=== PATIENT | female | born 1960 | race Caucasian/White ===

== ENCOUNTER → 2018-04-01 | Day surgery (SDC) | payer OTHER ==
[2018-03-30 08:17] VITALS: BMI 40.0
--- NOTE | 2018-03-30 12:44 | PAT Medication Instructions ---
Service Date March 30, 2018. Current Home Medication List Acetaminophen (Tylenol), 2 TAB PO BID PRN for Pain Albuterol Hfa (Ventolin Hfa), 2 PUFFS INH Q6 PRN for SOB/Wheezing Antacid (Antacid), 30 ML PO Q6H PRN for GERD Aripiprazole (Aripiprazole), 1 TAB PO DAILY AT 2000 Artificial Tear Solution (Artificial Tears), 1 DROPS OP UD PRN for DRY EYES Atorvastatin (Lipitor), 20 MG PO QAM Bacitracin Zinc (Bacitracin Zinc), 1 APPLN TOP UD PRN for WOUND CARE Benzocaine (Dental) (Anbesol), 1 APPLN TOP Q12 PRN for SORE GUMS Bisacodyl (Bisacodyl), 2 TAB PO HS PRN for Constipation Bzluvwuzje-Mqlbqxdgyrlsw-Aljdm (Fioricet), 1 CAP PO BID PRN for MOD-SEVERE HEADACHE Calcium Carbonate (Tums), 1 TAB PO UD PRN for HEARTBURN Carvedilol (Coreg), 3.125 MG PO BID Clonazepam (Klonopin), 0.5 MG PO HS PRN for ANXIETY Clonidine HCl (Clonidine HCl), 1 TAB PO HS Clonidine Hcl (Catapres), 0.5 TAB PO QAM Dextromethorphan-Guaifenesin (Siltussin-Dm), 2 TSP PO Q4H PRN for Cough Diclofenac (Voltaren), 1 TAB PO BID PRN for ARTHRITIS Epinephrine (Epipen), 0.3 MG IM UD Fluticasone Propionate (Nasal) (Allergy Nasal [place] 24 Ho), 1 DOSE BERENICE BID Folic Acid (Folvite), 1 MG PO QAM Furosemide (Lasix), 40 MG PO QAM Hydroxyzine Hcl (Atarax), 10 MG PO QID PRN for ANXIETY Levetiracetam (Keppra), 2 TAB PO BID Levothyroxine Sodium (Levothyroxine Sodium), 1 TAB PO QAM Magnesium Hydroxide (Milk of Magnesia 400 mg/5Ml), 30 ML PO UD PRN for CONSTIPATION Melatonin (Kp Melatonin), 1 TAB PO HS Mineral Oil Light (Topical) (Mineral Oil Light), 1-2 DROPS OT UD Nystatin (Topical) (Nystatin), Unknown Dose TOP BID Nystatin (Topical) (Nystatin), 1 APPLN TOP HS Omeprazole (Prilosec), 20 MG PO QAM Ondansetron Hcl (Zofran), 1 TAB PO Q8 PRN for Nausea or Vomiting Oxybutynin Chloride (Ditropan), 5 MG PO BID Oxycodone/Acetaminophen 5MG/325MG (Percocet 5MG/325MG), 1-2 TABLETS PO Q4-6 HOURS PRN for Pain Phenytoin Sodium (Dilantin), 330 MG PO HS Phenytoin Sodium (Dilantin), 3 CAP PO HS Polyethylene Glycol 3350 (Bulk (Polyethylene Glycol 3350), 17 GM PO QPM Potassium Chloride (Potassium Chloride Er), 1 TAB PO BID Topiramate (Topamax), 2 TAB PO BID Venlafaxine Hcl (Venlafaxine Hcl Er), 1 TAB PO QAM [B12 Injection ], 1 DOSE IM MONTHLY Medication Instructions For Your Scheduled Surgery - Per surgeon's instructions Diclofenac (Voltaren), 1 TAB PO BID PRN for ARTHRITIS - Continue as directed: [B12 Injection ], 1 DOSE IM MONTHLY Epinephrine (Epipen), 0.3 MG IM UD - Hold the following medications 24 hours prior to surgery: Bacitracin Zinc (Bacitracin Zinc), 1 APPLN TOP UD PRN for WOUND CARE Benzocaine (Dental) (Anbesol), 1 APPLN TOP Q12 PRN for SORE GUMS Nystatin (Topical) (Nystatin), Unknown Dose TOP BID Nystatin (Topical) (Nystatin), 1 APPLN TOP HS - Hold the following medications the morning of surgery: Folic Acid (Folvite), 1 MG PO QAM Furosemide (Lasix), 40 MG PO QAM Calcium Carbonate (Tums), 1 TAB PO UD PRN for HEARTBURN Otegnxkfsv-Iuciwbtsufthz-Xjkyt (Fioricet), 1 CAP PO BID PRN for MOD-SEVERE HEADACHE Dextromethorphan-Guaifenesin (Siltussin-Dm), 2 TSP PO Q4H PRN for Cough Magnesium Hydroxide (Milk of Magnesia 400 mg/5Ml), 30 ML PO UD PRN for CONSTIPATION Mineral Oil Light (Topical) (Mineral Oil Light), 1-2 DROPS OT UD Potassium Chloride (Potassium Chloride Er), 1 TAB PO BID - Take the following medications the morning of surgery with a sip of water OTHERWISE NOTHING TO EAT OR DRINK AFTER MIDNIGHT: Acetaminophen (Tylenol), 2 TAB PO BID PRN for Pain (may take if needed up to 4 hours prior to surgery) Albuterol Hfa (Ventolin Hfa), 2 PUFFS INH Q6 PRN for SOB/Wheezing (use if needed ; BRING TO HOSPITAL) Antacid (Antacid), 30 ML PO Q6H PRN for GERD Artificial Tear Solution (Artificial Tears), 1 DROPS OP UD PRN for DRY EYES Oxybutynin Chloride (Ditropan), 5 MG PO BID Carvedilol (Coreg), 3.125 MG PO BID Oxycodone/Acetaminophen 5MG/325MG (Percocet 5MG/325MG), 1-2 TABLETS PO Q4-6 HOURS PRN for Pain (may take if needed up to 4 hours prior to surgery) Levothyroxine Sodium (Levothyroxine Sodium), 1 TAB PO QAM Omeprazole (Prilosec), 20 MG PO QAM Venlafaxine Hcl (Venlafaxine Hcl Er), 1 TAB PO QAM Fluticasone Propionate (Nasal) (Allergy Nasal [place] 24 Ho), 1 DOSE BERENICE BID Levetiracetam (Keppra), 2 TAB PO BID Topiramate (Topamax), 2 TAB PO BID Hydroxyzine Hcl (Atarax), 10 MG PO QID PRN for ANXIETY Ondansetron Hcl (Zofran), 1 TAB PO Q8 PRN for Nausea or Vomiting - Take the following medications as scheduled the night before surgery: Acetaminophen (Tylenol), 2 TAB PO BID PRN for Pain Albuterol Hfa (Ventolin Hfa), 2 PUFFS INH Q6 PRN for SOB/Wheezing Antacid (Antacid), 30 ML PO Q6H PRN for GERD Aripiprazole (Aripiprazole), 1 TAB PO DAILY AT 2000 Artificial Tear Solution (Artificial Tears), 1 DROPS OP UD PRN for DRY EYES Phenytoin Sodium (Dilantin), 330 MG PO HS Phenytoin Sodium (Dilantin), 3 CAP PO HS Melatonin (Kp Melatonin), 1 TAB PO HS Clonidine HCl (Clonidine HCl), 1 TAB PO HS Bisacodyl (Bisacodyl), 2 TAB PO HS PRN for Constipation Oxybutynin Chloride (Ditropan), 5 MG PO BID Carvedilol (Coreg), 3.125 MG PO BID Oxycodone/Acetaminophen 5MG/325MG (Percocet 5MG/325MG), 1-2 TABLETS PO Q4-6 HOURS PRN for Pain Clonazepam (Klonopin), 0.5 MG PO HS PRN for ANXIETY Polyethylene Glycol 3350 (Bulk (Polyethylene Glycol 3350), 17 GM PO QPM Muducrchtm-Enknwmthwmuop-Fkrgr (Fioricet), 1 CAP PO BID PRN for MOD-SEVERE HEADACHE Fluticasone Propionate (Nasal) (Allergy Nasal [place] 24 Ho), 1 DOSE BERENICE BID Levetiracetam (Keppra), 2 TAB PO BID Dextromethorphan-Guaifenesin (Siltussin-Dm), 2 TSP PO Q4H PRN for Cough Topiramate (Topamax), 2 TAB PO BID Magnesium Hydroxide (Milk of Magnesia 400 mg/5Ml), 30 ML PO UD PRN for CONSTIPATION Hydroxyzine Hcl (Atarax), 10 MG PO QID PRN for ANXIETY Ondansetron Hcl (Zofran), 1 TAB PO Q8 PRN for Nausea or Vomiting Potassium Chloride (Potassium Chloride Er), 1 TAB PO BID If you have any questions please call us at [phone] or [phone] or [phone]
--- NOTE | 2018-03-31 13:27 | History and Physical ---
History & Physical Date March 31, 2018. Chief Complaint Left wrist pain History of Present Illness The patient is a 57 year old female with complaints of left wrist injury. Patient was [place] [employer] and was using the restroom when she slipped and fell onto her wrist. X-rays revealed a displaced distal radius fracture. The injury occurred on 03/19/18. Surgery fixation was recommended and patient is scheduled for left wrist ORIF on 04/01/18. She denies numbness, tingling, headaches, fever, chills, chest pain, sob, coughing, sore throat, n/v/d/c, urinary problems. Past Medical/Surgical History Past Medical History: Seizure disorder, HTN, high cholesterol, hypothyroidism, OA, ODELL, anxiety, CHF, GERD, Asthma Past Surgical History: Brain stimulator insertion for her seizures, Gallbladder, and eye surgery Social History: Patient denies drug or alcohol use, she is a non smoker. Additional History Hepatic Disease: No Endocrine Disorder: Yes (hypothyroidism) Kidney Disease: No Hypertension: Yes Heart Disease: Yes Bleeding Tendencies: No Infectious Diseases: No Allergies Coded Allergies: BEE STING (Verified Allergy, Unknown, ANAPHYLAXIS, 03/30/18) Lettuce (Verified Allergy, Unknown, RASH, 03/30/18) Potassium (Verified Allergy, Unknown, "LIQUID POTASSIUM" - " YOU ARE LOSING ME", 03/30/18) Tomato (Verified Allergy, Unknown, RASH, 03/30/18) Home Medications Scheduled Aripiprazole (Aripiprazole), 1 TAB PO DAILY AT 2000 Atorvastatin (Lipitor), 20 MG PO QAM Carvedilol (Coreg), 3.125 MG PO BID Clonidine HCl (Clonidine HCl), 1 TAB PO HS Clonidine Hcl (Catapres), 0.5 TAB PO QAM Epinephrine (Epipen), 0.3 MG IM UD Fluticasone Propionate (Nasal) (Allergy Nasal [place] 24 Ho), 1 DOSE BERENICE BID Folic Acid (Folvite), 1 MG PO QAM Furosemide (Lasix), 40 MG PO QAM Levetiracetam (Keppra), 2 TAB PO BID Levothyroxine Sodium (Levothyroxine Sodium), 1 TAB PO QAM Melatonin (Kp Melatonin), 1 TAB PO HS Mineral Oil Light (Topical) (Mineral Oil Light), 1-2 DROPS OT UD Nystatin (Topical) (Nystatin), Unknown Dose TOP BID Nystatin (Topical) (Nystatin), 1 APPLN TOP HS Omeprazole (Prilosec), 20 MG PO QAM Oxybutynin Chloride (Ditropan), 5 MG PO BID Phenytoin Sodium (Dilantin), 330 MG PO HS Phenytoin Sodium (Dilantin), 3 CAP PO HS Polyethylene Glycol 3350 (Bulk (Polyethylene Glycol 3350), 17 GM PO QPM Potassium Chloride (Potassium Chloride Er), 1 TAB PO BID Topiramate (Topamax), 2 TAB PO BID Venlafaxine Hcl (Venlafaxine Hcl Er), 1 TAB PO QAM [B12 Injection ], 1 DOSE IM MONTHLY Scheduled PRN Acetaminophen (Tylenol), 2 TAB PO BID PRN for Pain Albuterol Hfa (Ventolin Hfa), 2 PUFFS INH Q6 PRN for SOB/Wheezing Antacid (Antacid), 30 ML PO Q6H PRN for GERD Artificial Tear Solution (Artificial Tears), 1 DROPS OP UD PRN for DRY EYES Bacitracin Zinc (Bacitracin Zinc), 1 APPLN TOP UD PRN for WOUND CARE Benzocaine (Dental) (Anbesol), 1 APPLN TOP Q12 PRN for SORE GUMS Bisacodyl (Bisacodyl), 2 TAB PO HS PRN for Constipation Ytechjrylx-Bciffhgxktszh-Idqtg (Fioricet), 1 CAP PO BID PRN for MOD-SEVERE HEADACHE Calcium Carbonate (Tums), 1 TAB PO UD PRN for HEARTBURN Clonazepam (Klonopin), 0.5 MG PO HS PRN for ANXIETY Dextromethorphan-Guaifenesin (Siltussin-Dm), 2 TSP PO Q4H PRN for Cough Diclofenac (Voltaren), 1 TAB PO BID PRN for ARTHRITIS Hydroxyzine Hcl (Atarax), 10 MG PO QID PRN for ANXIETY Magnesium Hydroxide (Milk of Magnesia 400 mg/5Ml), 30 ML PO UD PRN for CONSTIPATION Ondansetron Hcl (Zofran), 1 TAB PO Q8 PRN for Nausea or Vomiting Oxycodone/Acetaminophen 5MG/325MG (Percocet 5MG/325MG), 1-2 TABLETS PO Q4-6 HOURS PRN for Pain Physical Examination Skin: warm/dry, no rash Eyes: normal inspection, sclerae normal ENT: normal ENT inspection, pharynx normal Head: normocephalic, atraumatic Neck: supple, no adenopathy, trachea midline Respiratory/Chest: lungs clear, normal breath sounds Cardiovascular: regular rate, rhythm Extremities: + pertinent finding (Left wrist-N/V status intact. Moderate ecchymosis and abrasions. Tendernesss over distal radius. ROM not tested due to pain. ) Neurologic/Psych: no motor/sensory deficits, alert, oriented x 3 Addiitonal Comments: Imaging: Displaced distal radius fracture, ulnar styloid fracture Left wrist. Diagnosis Left wrist Colles' fracture Plan of Treatment Patient has a displaced distal radius fracture. Treatment options were discussed and surgical intervention was recommended. Risks, benefits, and alternatives to surgery were discussed including, but not limited to infection, DVT, pain, stiffness, non-union, need for revision surgery, failure to relieve all symptoms, progression to arthritis, damage to blood vessels, damage to nerves, risks of anesthesia, PE, and patient demonstrated understanding and wishes to proceed with surgery. Patient is scheduled for left distal radius fracture ORIF. Surgery scheduled for 04/01/18.
[~2018-04-01] VITALS: Ht 149.9 cm; Wt 90.9 kg
[~2018-04-01] MED LIST: ACET-1311 PO; ACETAMINOPHEN 325 MG TAB PO PRN; ANT PO; ARIP1TAB16 PO; ARTISOL12 OP; ATOR-22 PO; ATROPINE SULFATE 0.1 MG/ML 5ML SYR IV PRN; B12 INJECTION IM; BACI500O TOP; BENZ10GE38 TOP; BISA1TAB15 PO; BUTA1CAP17 PO; CALC500C3 PO; CARV3.122 PO; CEFAZOLIN 2000MG IV PUSH 15 ML IV SCH; CEFAZOLIN SOD 2000MG/15 ML IV PUSH ONE; CLON0.1T12 PO; CLON0.5T3 PO; CTP1 PO; DEXTSYP29 PO; DICL-201 PO; DLN100 PO; DLN30 PO; DTR/5 PO; EPP3/2 IM; EpHEDrine SULFATE INJ 50 MG/ML AMP IV PRN; FENTANYL CITRATE INJ 50 MCG/1 ML 2 ML VIAL ONE; FLUT50SP45 NAE; FOLI1TAB8 PO; FRS/40 PO; HYDR-3126 PO; HYDROmorphone INJ 0.5 MG/0.5 ML SYR IV PRN; HYDROmorphone INJ 0.5 MG/0.5 ML SYR ONE; LEVE750T PO; LEVO200T6 PO; LIDOCAINE HCL 2% 2 ML VIAL (20MG/ML) ONE; MAGNSUS73 PO; MELA1TAB5 PO; MIDAZOLAM HCL 1 MG/ML 2ML VIAL ONE; MINEOIL OT; MoRPHine SULFATE 4 MG/ML 1 ML CARP\\VIAL IV PRN; NYST100033 TOP; NYST80OI TOP; ONDA4TAB46 PO; ONDANSETRON INJ 2 MG/ML 2 ML VIAL IV PRN; ONDANSETRON INJ 2 MG/ML 2 ML VIAL ONE; OXYC-57 PO; OXYCODONE HCL IR 5 MG TAB (IMMEDIATE RELEASE) PO PRN; PHENYLEPHRINE 100MCG/ML 5ML SYR IV PRN; POLY1POW2 PO; POTA-74 PO; PRLSR20 PO; PROPOFOL IV EMULSION 10 MG/ML 20 ML VIAL ONE; ROCURONIUM BROMIDE 10 MG/ML 5 ML VIAL ONE; ROPIVACAINE 0.5% 5 MG/ML 30 ML VIAL ONE; TOPI100T20 PO; VENL150T33 PO; VNTHFA/IN INH
--- NOTE | 2018-04-01 10:53 | History & Physical Bridge Note ---
H&P Re-Evaluation Bridge Note: I have examined the patient, reviewed the History & Physical and in the interval since the performance of the History & Physical I have noted the following changes of clinical significance: No changes noted
[2018-04-01 11:10] VITALS: BP 139/78; PULSE 72; TEMP 36.8; O2SAT 100; Ht 149.9 cm; Wt 90.9 kg
[2018-04-01 12:07] LABS: BASO % 0.4 %; BASO ABS # 0.01 K/uL (0-0.2); EOS % 6.4 %; EOS ABS # 0.17 K/uL (0-0.5); HEMATOCRIT 34.8 % (37-47); HEMOGLOBIN 11.5 g/dL (12.0-16.0); LYMPH % 46.4 %; LYMPH ABS # 1.24 K/uL (1.2-3.4); MEAN CELL VOLUME 93.8 fL (80-100); MEAN PLATELET VOLUME 8.3 fL (7.4-10.4); MONO % 7.9 %; MONO ABS # 0.21 K/uL (0.11-0.59); NEUT % 38.9 %; NEUT ABS # 1.04 K/uL (1.4-6.5); PLATELET COUNT 158 K/uL (130-400); RED CELL DISTRIBUTION WIDTH CV 12.3 % (11.5-14.5); RED CELL DISTRIBUTION WIDTH SD 41.7 fL (36.4-46.3); WHITE BLOOD COUNT 2.67 K/uL (4.8-10.8)
[2018-04-01 12:35] LABS: CALCIUM 8.6 mg/dl (8.5-10.1); CREATININE 0.69 mg/dl (0.60-1.20); POTASSIUM 3.8 mmol/L (3.5-5.1)
--- NOTE | 2018-04-01 17:02 | Discharge Instructions ---
Discharge Instructions Date of Service April 01, 2018. Admission Reason for Admission: Left Distal Radius Fracture Discharge Discharge Diagnosis / Problem: Left Distal Radius Fracture Discharge Goals Goal(s): Decrease discomfort, Improve function Activity Recommendations Activity Limitations: per Instructions/Follow-up section Weightbearing Status: Left non-weightbearing (on the wrist and forearm) . Instructions / Follow-Up Instructions / Follow-Up ACTIVITY RECOMMENDATIONS: * No weight on the hand,wrist, and forearm of the left upper extremity. SPECIAL CARE INSTRUCTIONS: * Your splint should be left in place until you are seen in the office. * Some drainage onto the dressing may occur. This is normal. * If the bandage feels excessively tight, you may loosen the elastic bandage and then rewrap it loosely. Then call the physician's office for further instructions. * If possible, keep your hand elevated above the level of your heart for the first 2 post operative days. You may use a sling if necessary. * You should move your fingers regularly (50-100 motions per hour) unless otherwise instructed. SPECIAL PRECAUTIONS: * If you notice increased drainage, fever over 101 degrees F. or severe, unremitting pain, call your physician/office at . * You may have been prescribed pain medication. If you experience nausea and/or skin rash, discontinue this medication and contact our office for an alternative medication. FOLLOW UP VISIT: If appointment is not already scheduled: Please call [facility] [place] to make a follow-up appointment with Dr. Joseph for 10-14 days from the day of your surgery at . Current Hospital Diet Patient's current hospital diet: Discharge Diet Recommended Diet: Regular Diet Pending Studies Studies pending at discharge: no Medical Emergencies . Who to Call and When: Medical Emergencies: If at any time you feel your situation is an emergency, please call [phone] immediately. . Non-Emergent Contact Non-Emergency issues call your: Surgeon Call Non-Emergent contact if: temperature is above 101.5, your pain is not controlled, your pain is worsening, wound has increased drainage, wound has increased redness . "Provider Documentation" section prepared by Arturo Mendoza. . [place] Drug Monitoring Program Search Results: patient reviewed within database, see additional documentation Drug Monitoring Findings: Pt given Rx for Percocet on 03/24/18 for [address] Joseph. Pt due for a refill in 2 days. Rx will be given for refill once discharged to home from surgical procedure.
--- NOTE | 2018-04-01 17:12 | [facility] Operative Report ---
Operative Report Operative Date April 01, 2018. Pre-Operative Diagnosis Left distal radius fracture (3 part intra-articular) Post-Operative Diagnosis same Procedure(s) Performed open reduction and internal fixation of left distal radius fracture (three part intra-articular) Surgeon Dr. Giorgio Joseph Polisher And Buffer Surgeon(s) Teddy Gilman PA-c Estimated Blood Loss 10ml Findings As above Specimens no specimen per surgeon Drains None Anesthesia Type General Regional Complication(s) none Disposition Recovery Room / PACU Indications Risks, benefits and alternatives to surgery including, but not limited to, infection, DVT, pain, stiffness, need for revision surgery, nonunion, failure to relieve all symptoms, damage to blood vessels, damage to nerves, risk of the anesthesia were discussed with the patient and they wished to proceed. The patient was identified. Laterality was confirmed and marked. The patient received a preoperative antibiotic. They were transferred to the operating room and placed in supine position and induced into general endotracheal anesthesia per the anesthesia staff. A well-padded tourniquet was placed on the arm and the limb was prepped and draped in the usual standard manner with ChloraPrep. I made a longitudinal incision on the volar aspect of the wrist in line with the FCR tendon. I sharply incised through the skin and utilized Bovie electrocautery to achieve hemostasis. I incised through the FCR paratenon and mobilize this ulnarly to protect the median nerve. I then incised to the FPL fascia and mobilized this. I identified the pronator quadratus. I incised through this with Bovie leaving a tissue cuff for later repair. There is fairly significant dorsal comminution. I used a Applegate elevator to mobilize the distal fragment and clear any interposed soft tissue. Then performed a provisional reduction. I then placed a SureDone DVR cross lock volar locking plate into position. This was a narrow size plate. I confirmed reduction and positioning of the plate with live fluoroscopy views. Once I was satisfied with the reduction in the initial placement of the plate I placed a screw in the oblong hole. I then adjusted the positioning of the plate is necessary under fluoroscopy. Then while holding the fracture reduced I placed 2 locking screws into the distal fragment of the fracture. I confirmed screw length and maintenance of reduction under fluoroscopy. I was satisfied with the reduction of the fracture and the alignment of the implant. I then placed the remaining distal locking screws into position 3 additional screws proximally. Confirmed screw length and fracture reduction on AP lateral and oblique views. I was satisfied with that fracture reduction and implant placement. The DRUJ was inspected and found to be stable. The wound was thoroughly irrigated. The pronator quadratus was closed with interrupted #2 Vicryl suture. The subcutaneous tissue was closed with interrupted 3-0 Vicryl suture and the skin with running 4-0 nylon. A sterile dressing was applied and the tourniquet was released. A volar splint was placed. All needle and sponge counts were correct at the end of the procedure. The patient was transferred to the PACU in stable condition without apparent complication. The PA-C was necessary for assistance with procedure for assistance in positioning, prepping, draping, retraction and closure. I attest to the content of the Intraoperative Record and any orders documented therein. Any exceptions are noted below.
--- NOTE | 2018-04-01 17:17 | DIAGNOSTIC IMAGING REPORT ---
L WRIST 2 VIEWS CLINICAL HISTORY: LT ORIF DISTAL RADIUS COMPARISON STUDY: None. FINDINGS: 2 fluoroscopic spot images of the left wrist demonstrate a cortical plate transfixed with screws bridging the distal radius fracture. The hardware appears intact. Alignment is near-anatomic. Ulnar styloid fractures also again noted. Total fluoroscopy time was 3 minutes and 1 second. IMPRESSION: Fluoroscopy provided for internal fixation of a distal radius fracture. Electronically signed by: Jose J Early M.D. 04/01/2018 5:16 PM Dictated Date/Time: 04/01/2018 5:14 PM
--- NOTE | 2018-04-01 17:37 | Anesthesiology Progress Note ---
Anesthesia Post Op Note Date & Time April 01, 2018 at 17:37 Vital Signs Pain Intensity: 10.0 Vital Signs Past 12 Hours Date Time Temp Pulse Resp B/P (MAP) Pulse Ox O2 Delivery O2 Flow Rate FiO2 04/01/18 17:31 168/90 04/01/18 17:29 78 16 04/01/18 17:29 78 16 96 04/01/18 17:26 175/98 04/01/18 17:24 76 14 04/01/18 17:24 77 14 99 04/01/18 17:20 154/94 04/01/18 17:19 79 16 04/01/18 17:19 79 16 95 04/01/18 11:10 36.8 72 18 139/78 (98) 100 Room Air Notes Mental Status: alert / awake / arousable, participated in evaluation Pt Amnestic to Procedure: Yes Nausea / Vomiting: adequately controlled Pain: adequately controlled Airway Patency, RR, SpO2: stable & adequate BP & HR: stable & adequate Hydration State: stable & adequate Anesthetic Complications: no major complications apparent
[2018-04-01 18:05] VITALS: BP 164/84; PULSE 84; TEMP 36.6; O2SAT 94
[2018-04-01 18:35] VITALS: BP 156/81; PULSE 85; TEMP 36.6; O2SAT 92
[2018-04-01 19:05] VITALS: BP 149/80; PULSE 87; TEMP 36.7; O2SAT 93
== END | disposition home or self-care (01) ==
LOC: C.ACU 10:19
PROVIDERS: ATTEND Orthopaedic Surgery
DX: S52.502A Unspecified fracture of the lower end of left radius, initial encounter for closed fracture (principal); W01.0XXA Fall on same level from slipping, tripping and stumbling without subsequent striking against object, initial encounter; I10 Essential (primary) hypertension; E78.5 Hyperlipidemia, unspecified; E78.00 Pure hypercholesterolemia, unspecified; J45.909 Unspecified asthma, uncomplicated; E66.01 Morbid (severe) obesity due to excess calories; E03.9 Hypothyroidism, unspecified; M19.90 Unspecified osteoarthritis, unspecified site; G47.33 Obstructive sleep apnea (adult) (pediatric); F41.9 Anxiety disorder, unspecified; K21.9 Gastro-esophageal reflux disease without esophagitis; I50.9 Heart failure, unspecified; G40.909 Epilepsy, unspecified, not intractable, without status epilepticus; Z88.8 Allergy status to other drugs, medicaments and biological substances; Z95.818 Presence of other cardiac implants and grafts

== ENCOUNTER 2019-04-02 19:49 | Observation (INO) ==
[2019-04-02 20:26] LABS: Basophils # (auto) 0.02 K/uL (0-0.2); Basophils % (auto) 0.5 %; Eosinophils # (auto) 0.19 K/uL (0-0.5); Eosinophils % (auto) 4.5 %; Hematocrit (blood only) 33.6 % (37-47); Hemoglobin 11.2 g/dL (12.0-16.0); Immature Granulocytes # (auto) 0.01 K/uL (0.00-0.02); Immature Granulocytes % (auto) 0.2 %; Lymphocytes # (auto) 1.79 K/uL (1.2-3.4); Lymphocytes % (auto) 42.2 %; Mean Corpuscular Hgb Conc 33.3 g/dL (32-36); Mean Corpuscular Volume 93.9 fL (80-100); Mean Platelet Volume 8.4 fL (7.4-10.4); Monocytes # (auto) 0.42 K/uL (0.11-0.59); Monocytes % (auto) 9.9 %; Neutrophils # (auto) 1.81 K/uL (1.4-6.5); Neutrophils % (auto) 42.7 %; Platelet Count 111 K/uL (130-400); RDW Coefficient of Variation 12.4 % (11.5-14.5); RDW Standard Deviation 42.8 fL (36.4-46.3); Red Blood Count 3.58 M/uL (4.2-5.4); White Blood Count 4.24 K/uL (4.8-10.8)
[2019-04-02 20:46] LABS: Alanine Aminotransferase 46 U/L (12-78); Albumin Level 3.4 gm/dl (3.4-5.0); Aspartate Aminotransferase 24 U/L (15-37); BUN Creatinine Ratio 8.5 (10-20); Blood Urea Nitrogen 8 mg/dl (7-18); Calcium 8.6 mg/dl (8.5-10.1); Carbon Dioxide 26 mmol/L (21-32); Chloride 111 mmol/L (98-107); Est GFR (African American) 79.6; Est GFR (Non-African American) 68.6; Glucose 117 mg/dl (70-99); Magnesium 2.1 mg/dl (1.8-2.4); Potassium 3.9 mmol/L (3.5-5.1); Sodium 146 mmol/L (136-145)
[2019-04-02 20:49] LABS: Alkaline Phosphatase 137 U/L (45-117); Bilirubin,Total 0.2 mg/dl (0.2-1); Globulin 3.5 gm/dl (2.5-4.0); Total Protein 6.9 gm/dl (6.4-8.2)
[2019-04-02] MEDS ORDERED: LORazepam 1 MG/2 ML VIAL IV PRN (21:59)
--- NOTE | 2019-04-02 22:02 | History & Physical Report ---
Date of Service April 02, 2019 Assessment & Plan (1) Seizure disorder: History of seizure disorder, on multiple antiseizure medications: Keppra, Topamax, Dilantin Sent to the ER with report of multiple seizure episodes more than 7? Patient does not appear to be postictal, History is typical for seizure, no loss of consciousness bladder incontinence Possible pseudo seizure? Dilantin level subtherapeutic On-call [facility] neurology contacted by ER physician recommended loading dose of Keppra-given in ER With increased baseline Dilantin from 100 mg at bedtime 200 million twice daily, further dose adjustment as per neurology She will be continued with outpatient Keppra 1750 mg twice daily Topamax dose increased to 250 mg twice daily per neurology recommendation Seizure precaution Ordered for EEG Neurology consulted patient will be evaluated by neurology team in a.m. (2) Down syndrome: Patient noted to have high intellectual function, able to answer all questions appropriately (3) Hypothyroidism: Continue levothyroxine, check TSH (4) Chronic CHF: No evidence of cardiac/congestive heart failure decompensation Continue outpatient Lasix (5) HTN (hypertension): BP stable continue outpatient meds (6) HLD (hyperlipidemia): On statin (7) Anxiety and depression: Continue outpatient meds Mood appears to be stable (8) ODELL (obstructive sleep apnea): Ordered for CPAP at night DNR as per discussion with pt Follows with Dr Cifuentes for routine care [place] Social service consulted for discharge planning issues It is expected to be discharged back to personal [facility] when medically stable Plan of care updated to patient's brother over phone Pt was seen with Dr Colmenares. See addendum for assessment and plan History of Present Illness Chief Complaint: Seizure Primary Care Provider: [facility] Pt is 58 y/o F with PMH Down syndrome, epilepsy, hypothyroidism, depression, anxiety, HTN, HLD, ODELL, GERD, asthma, CHF resented to ER with complaint of seizure. Reported that patient had 7 seizures witnessed by staff tonight. Reported first seizure lasted 20 minutes. Patient transported to ER via EMS and no reported seizures in route. Currently in ER patient's only complaint is feeling tired. Patient states does not remember having seizures tonight. She states usually prior to a seizure she has a warning sign of holding up her thumb between her index and middle finger. Patient states that did not happen today. Denies any loss of control of bowel or bladder. Patient reports is been taking her medications. States today she went to her mother's grave and that upset her. Reports most recent seizure 03/20/2019. She had ER visit and [facility] on 03/20/19 and at that time head CT negative. call center representative neurology was consulted and it was suggested pt's Keppra be increased to 1750mg BID. Patient with recent history of vagus nerve stimulator placed at [facility]. In 02/2019 patient developed surrounding infection and stimulator was removed. Denies f ever/chills, diaphoresis, N/V/D/C, CRUZ, dizziness, syncope, vision changes, neck pain, CP, SOB, orthopnea, palpitations, cough, sore throat, choking, otalgia, rhinorrhea, abdominal pain, paresthesias, weakness, extremity weakness, extremity edema, rashes, urinary symptoms.N fever/chills, diaphoresis, N/V/D/C, CRUZ, dizziness, syncope, acute vision changes, neck pain, CP, SOB, orthopnea, palpitations, cough, sore throat, choking, otalgia, rhinorrhea, abdominal pain, paresthesias, weakness, extremity weakness, extremity edema, rashes, urinary symptoms. Reports neurologist is in [place] and name starts with a "F". ?Dr Nunez. [facility] Manager: Dr Nava in [place]. Pt's brother Johnathan Lin # [phone] was contacted at pt's request to inform him that ptin the hospital. Allergies Allergy/AdvReac Type Severity Reaction Status Date / Time bee venom protein (honey bee) Allergy Unknown ANAPHYLAXIS Verified 04/02/19 21: 19 potassium Allergy Unknown "LIQUID Verified 04/02/19 21:19 POTASSIUM" - " YOU ARE LOSING ME" tomato Allergy Unknown RASH Verified 04/02/19 21:19 Lettuce Allergy Unknown RASH Uncoded 04/02/19 21:19 Home Medications Home Medications Medication Instructions Recorded Confirmed Type acetaminophen [Tylenol] 650 mg PO Q6H PRN MDD 3G 02/10/19 04/02/19 History albuterol sulfate [Ventolin HFA] 2 puff INHALATION Q6H PRN 02/10/19 04/02/19 History aripiprazole [Abilify] 15 mg PO HS 02/10/19 04/02/19 History atorvastatin 20 mg PO QAM 02/10/19 04/02/19 History bisacodyl 10 mg PO HS PRN 02/10/19 04/02/19 History carvedilol 3.125 mg PO BID 02/10/19 04/02/19 History clonazepam 0.5 mg PO HS PRN 02/10/19 04/02/19 History clonidine HCl 0.05 mg PO QAM 02/10/19 04/02/19 History clonidine HCl 0.1 mg PO HS 02/10/19 04/02/19 History cyanocobalamin (vitamin B-12) 1,000 mcg IM MO 02/10/19 04/02/19 History epinephrine [EpiPen] 0.3 mg IM UD PRN 02/10/19 04/02/19 History ergocalciferol (vitamin D2) 50,000 unit PO WK 02/10/19 04/02/19 History fluticasone propionate [Flonase 1 spray INTRANASAL BID 02/10/19 04/02/19 History Allergy Relief] folic acid 1 mg PO DAILY 02/10/19 04/02/19 History furosemide [Lasix] 40 mg PO QAM 02/10/19 04/02/19 History hydroxyzine HCl 10 mg PO QID PRN 02/10/19 04/02/19 History levetiracetam [Keppra] 1,500 mg PO BID 02/10/19 04/02/19 History magnesium hydroxide [Milk of 30 ml PO DAILY PRN 02/10/19 04/02/19 History Magnesia] melatonin 3 mg PO HS 02/10/19 04/02/19 History omeprazole 20 mg PO QAM 02/10/19 04/02/19 History ondansetron HCl [Zofran] 4 mg PO Q8H PRN 02/10/19 04/02/19 History oxybutynin chloride 5 mg PO BID 02/10/19 04/02/19 History phenytoin sodium extended 100 mg PO HS 02/10/19 04/02/19 History potassium chloride 10 meq PO BID 02/10/19 04/02/19 History topiramate [Topamax] 200 mg PO BID 02/10/19 04/02/19 History venlafaxine 150 mg PO DAILY 02/10/19 04/02/19 History albuterol sulfate 2.5 mg INHALATION Q4H PRN 03/20/19 04/02/19 History benzocaine-menthol [Cepacol Sore 1 bill MUCOUS MEMBRANE UD PRN 03/20/19 04/02/19 History Throat (harinder-men)] calcium carbonate [Tums] 200 mg PO QID PRN 03/20/19 04/02/19 History cyclobenzaprine 10 mg PO Q8H PRN 03/20/19 04/02/19 History docusate sodium 100 mg PO BID 03/20/19 04/02/19 History levothyroxine 125 mcg PO DAILY 03/20/19 04/02/19 History nystatin [Nystop] 1 applic TOPICAL BID PRN 03/20/19 04/02/19 History oxycodone 5 mg PO Q4H PRN 03/20/19 04/02/19 History peg [id number]-smrvxblp 2 drp OPB BID PRN 03/20/19 04/02/19 History [Artificial Tears(sg-czoj-swqk)] qnyiglrdl-mkjqgxnz-uxxkb-w.pet 1 applic [place] BID PRN 03/20/19 04/02/19 History [Preparation H Maximum Strength] levetiracetam [Keppra] 250 mg PO BID 04/02/19 04/02/19 History Past Med/Surg History Medical History Chronic CHF (Chronic) ODELL (obstructive sleep apnea) (Chronic) Asthma (Chronic) GERD (gastroesophageal reflux disease) (Chronic) HLD (hyperlipidemia) (Chronic) HTN (hypertension) (Chronic) Anxiety and depression (Chronic) Hypothyroidism (Chronic) Seizure disorder (Chronic) Down syndrome (Chronic) Seizures Surgical History History of cataract surgery (Chronic) S/P placement of VNS (vagus nerve stimulation) device (Chronic) Family History Other Unknown family medical history Social History Preferred Language: Macanese Communication Ability: Effective 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 Beliefs That Will Affect Care: None marital status: single Current Living Situation: Personal Care Facility current occupational status: unemployed and disabled Feels Safe at Home: Yes Safety Concerns: Feels Safe At This Time Smoking Status: Never smoker Hx Alcohol Use: No Hx Substance Use: No Review of Systems Review of Systems: All systems reviewed & are unremarkable except as noted in HPI & below Physical Exam Physical Exam: General: no acute distress, obese Head: atraumatic, found face, flat features Eyes: PERRL, EOM's intact, conjunctiva non-injected, anicteric ENT: normal inspection external ears, nose, mucous membranes moist, no tongue laceration noted Neck: supple, trachea midline, left neck with scar and scab Lungs: clear, no respiratory distress, no wheezing/rhonchi/rales CV: RRR, no murmur Chest: upper left chest with healed surgical scar with scab to lateral aspect of incision, non-tender and no surrounding erythema Abd: normal BS, soft, non-tender Ext: no cyanosis, no calf tenderness Neuro: A&O x 3, no focal deficits noted, normal affect Skin: warm, dry Results & Data Vital Signs (Past 12 Hours) Vital Signs Pulse Resp BP Pulse Ox 04/02/19 21:30 77 18 121/75 98 Laboratory Results Short CBC 04/02/19 Range/Units 20:15 WBC 4.24 L (4.8-10.8) K/uL Hgb 11.2 L (12.0-16.0) g/dL Hct 33.6 L (37-47) % Plt Count 111 L (130-400) K/uL BMP 04/02/19 20:15 Sodium 146 H Potassium 3.9 Chloride 111 H Carbon Dioxide 26 BUN 8 Creatinine 0.92 Glucose 117 H Calcium 8.6 Liver Function 04/02/19 Range/Units 20:15 Total Bilirubin 0.2 (0.2-1) mg/dl AST 24 (15-37) U/L ALT 46 (12-78) U/L Alkaline Phosphatase 137 H (45-117) U/L Albumin 3.4 (3.4-5.0) gm/dl Supervising Physician Co-Signing Physician Notes Attending addendum: pt Seen and examined, care coordinated with Collette Moore PA-C 58-year-old female with history of Down syndrome obstructive sleep apnea, seizure disorder, sent to ER with concern for seizure episode, Patient appears to be awake alert oriented, conversing appropriately no evidence of post ictal state Antiseizure meds adjusted as per neurology recommendation Observation and medical floor EEG in a.m. CODE STATUS: DNR/DNI discussed with patient Brisa Colmenares MD
[2019-04-02 22:23] LABS: Creatine Kinase 74 U/L (26-192)
[2019-04-02] MEDS ORDERED: ALBUTEROL 0.083% NEBU SOLN 3 ML VIAL INH PRN (22:29)
[2019-04-02] MEDS ORDERED: OXYCODONE HCL IR 5 MG TAB (IMMEDIATE RELEASE) PO PRN (22:29)
[2019-04-02] MEDS ORDERED: MAGNESIUM HYDROXIDE SUSP 30 ML UDC PO PRN ×2 (22:29)
[2019-04-02] MEDS ORDERED: EPINEPHRINE ADULT AUTO-INJECT 0.3 MG SYR IM PRN (22:29)
[2019-04-02] MEDS ORDERED: clonazePAM 0.5 MG TAB PO PRN (22:29)
[2019-04-02] MEDS ORDERED: ALBUTEROL HFA 8 GM INHALER INH PRN (22:29)
[2019-04-02] MEDS ORDERED: BISACODYL 5 MG TABEC PO PRN (22:29)
[2019-04-02] MEDS ORDERED: ACETAMINOPHEN 325 MG TAB PO PRN ×2 (22:29)
[2019-04-02] MEDS ORDERED: CALCIUM CARBONATE 500 MG CHEWABLE TAB PO PRN (22:29)
[2019-04-02] MEDS ORDERED: POLYETHYLENE (MIRALAX) 17 GM PACK PO PRN (22:29)
[2019-04-02] MEDS ORDERED: CYCLOBENZAPRINE HCL 10 MG TAB PO PRN (22:29)
[2019-04-02] MEDS ORDERED: ALUMINUM/MAGNESIUM SUSP 30 ML UDC PO PRN (22:29)
[2019-04-02] MEDS ORDERED: ONDANSETRON INJ 2 MG/ML 2 ML VIAL IV PRN (22:29)
[2019-04-02] MEDS ORDERED: hydrOXYzine HCl 10 MG TAB PO PRN (22:29)
[2019-04-02] MEDS ORDERED: ONDANSETRON 4 MG OD TAB PO PRN (22:29)
--- NOTE | 2019-04-02 23:33 | Emergency Department Note ---
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 Per the nursing staff, the patient was at a picnic where she was seen to have a 20 minute seizure and 7 subsequent seizures where she was just staring, not shaking. They state that the patient had a headache initially after the episode, but does not have one now. The care facility reports that the patient is currently on Dilantin 100mg at bedtime, Topamax 200 mg twice daily, and Keppra 1500mg twice daily. The patient denies an y pain, headache, chest pain, or head injuries prior to the episode. She states that she has no memory of the episode. She reports that she takes her medications daily. The HPi is slightly limited secondary to intellectual disability and the nature of her symptoms. Home Medications Home Medications Medication Instructions Recorded Confirmed Type acetaminophen [Tylenol] 650 mg PO Q6H PRN MDD 3G 02/10/19 04/02/19 History albuterol sulfate [Ventolin HFA] 2 puff INHALATION Q6H PRN 02/10/19 04/02/19 History aripiprazole [Abilify] 15 mg PO HS 02/10/19 04/02/19 History atorvastatin 20 mg PO QAM 02/10/19 04/02/19 History bisacodyl 10 mg PO HS PRN 02/10/19 04/02/19 History carvedilol 3.125 mg PO BID 02/10/19 04/02/19 History clonazepam 0.5 mg PO HS PRN 02/10/19 04/02/19 History clonidine HCl 0.05 mg PO QAM 02/10/19 04/02/19 History clonidine HCl 0.1 mg PO HS 02/10/19 04/02/19 History cyanocobalamin (vitamin B-12) 1,000 mcg IM MO 02/10/19 04/02/19 History epinephrine [EpiPen] 0.3 mg IM UD PRN 02/10/19 04/02/19 History ergocalciferol (vitamin D2) 50,000 unit PO WK 02/10/19 04/02/19 History fluticasone propionate [Flonase 1 spray INTRANASAL BID 02/10/19 04/02/19 History Allergy Relief] folic acid 1 mg PO DAILY 02/10/19 04/02/19 History furosemide [Lasix] 40 mg PO QAM 02/10/19 04/02/19 History hydroxyzine HCl 10 mg PO QID PRN 02/10/19 04/02/19 History levetiracetam [Keppra] 1,500 mg PO BID 02/10/19 04/02/19 History magnesium hydroxide [Milk of 30 ml PO DAILY PRN 02/10/19 04/02/19 History Magnesia] melatonin 3 mg PO HS 02/10/19 04/02/19 History omeprazole 20 mg PO QAM 02/10/19 04/02/19 History ondansetron HCl [Zofran] 4 mg PO Q8H PRN 02/10/19 04/02/19 History oxybutynin chloride 5 mg PO BID 02/10/19 04/02/19 History phenytoin sodium extended 100 mg PO HS 02/10/19 04/02/19 History potassium chloride 10 meq PO BID 02/10/19 04/02/19 History topiramate [Topamax] 200 mg PO BID 02/10/19 04/02/19 History venlafaxine 150 mg PO DAILY 02/10/19 04/02/19 History albuterol sulfate 2.5 mg INHALATION Q4H PRN 03/20/19 04/02/19 History benzocaine-menthol [Cepacol Sore 1 bill MUCOUS MEMBRANE UD PRN 03/20/19 04/02/19 History Throat (harinder-men)] calcium carbonate [Tums] 200 mg PO QID PRN 03/20/19 04/02/19 History cyclobenzaprine 10 mg PO Q8H PRN 03/20/19 04/02/19 History docusate sodium 100 mg PO BID 03/20/19 04/02/19 History levothyroxine 125 mcg PO DAILY 03/20/19 04/02/19 History nystatin [Nystop] 1 applic TOPICAL BID PRN 03/20/19 04/02/19 History oxycodone 5 mg PO Q4H PRN 03/20/19 04/02/19 History peg [id number]-yqgxjpht 2 drp OPB BID PRN 03/20/19 04/02/19 History [Artificial Tears(sr-pnxr-xmqt)] okdyebivj-smvwsidn-rbgjw-w.pet 1 applic [place] BID PRN 03/20/19 04/02/19 History [Preparation H Maximum Strength] levetiracetam [Keppra] 250 mg PO BID 04/02/19 04/02/19 History Allergies Allergy/AdvReac Type Severity Reaction Status Date / Time bee venom protein (honey bee) Allergy Unknown ANAPHYLAXIS Verified 04/02/19 21:19 potassium Allergy Unknown "LIQUID Verified 04/02/19 21:19 POTASSIUM" - " YOU ARE LOSING ME" tomato Allergy Unknown RASH Verified 04/02/19 21:19 Lettuce Allergy Unknown RASH Uncoded 04/02/19 21:19 Past Med/Surg History Medical History Chronic CHF (Chronic) ODELL (obstructive sleep apnea) (Chronic) Asthma (Chronic) GERD (gastroesophageal reflux disease) (Chronic) HLD (hyperlipidemia) (Chronic) HTN (hypertension) (Chronic) Anxiety and depression (Chronic) Hypothyroidism (Chronic) Seizure disorder (Chronic) Down syndrome (Chronic) Seizures Surgical History History of cataract surgery (Chronic) S/P placement of VNS (vagus nerve stimulation) device (Chronic) Family History Other Unknown family medical history Social History Preferred Language: Bulgarian Communication Ability: Effective 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 and A total of 10 systems reviewed and were otherwise negative Physical Exam Vital Signs Vital Signs - 24 hr 04/02/19 21:30 Pulse Rate [Right Finger] 77 Pulse Rhythm [Right Finger] Regular Pulse Strength [Right Finger] Normal Respiratory Rate 18 Respiratory Effort / Characteristics Non-Labored Respiratory Depth Normal Respiratory Pattern Regular Blood Pressure [Right Arm] 121/75 Blood Pressure Mean [Right Arm] 90 Pulse Oximetry 98 Constitutional: Vital signs reviewed. Eyes: Pupils are equal round reactive to light. Conjunctiva are noninjected. ENT: Pharynx is clear without erythema or exudate. Mucous membranes are moist. Neck supple without meningeal signs. Respiratory: Clear to auscultation bilaterally. Breath sounds are equal bilaterally. Cardiovascular: Regular rate and rhythm. No rubs or gallops. GI: Soft, nondistended and nontender. Bowel sounds are present. Musculoskeletal: No peripheral edema. No lower extremity tenderness. Integumentary: No cyanosis. Neurological: The patient is awake and alert. Cranial nerves II-XII are intact. Motor is 5 out of 5 all extremities. Sensation is intact to light touch all extremities. Normal speech. No pronator drift. Psychiatric: Normal affect. Course 1956: The patient was evaluated in room B7, and a complete history and physical examination were performed. 2014: I talked to the patient's facility and they confirmed the patient is on correct dosage of Keppra. 2023: I discussed the case with Dr. Paul Quinn Neurology, she recommended to give the patient a does of 500 Keppra BID and increase Topamax to 200 bid. Requested another kepra level. 2037: I reevaluated the patient and she is resting comfortably. 2045: I reevaluated the patient and discussed her test results with her. The patient stated she would okay with hospitalization if needed. 2054: I discussed the patient's case with Dr. Kim Quinn Hospitalist, he will further evaluate the patient. Reevaluation(s) Reevaluation #1: I discussed the patient's case with Dr. [facility], he will further evaluate the patient. Time: 20:55 Administered Medications Discontinued Medications Levetiracetam 500 mg/ Dextrose 105 mls @ 440 mls/hr IV NOW STA Stop: 04/02/19 20:38 Last Infusion: 04/02/19 21:19 Dose: 0 mls/hr Documented by: [id number] Admin: 04/02/19 20:50 Dose: 440 mls/hr Documented by: [id number] Medical Decision Making Differential Diagnosis Differentials include absence seizure, breakthrough seizure, epilepsy, and metabolic derangement. Medical Records Attestation: I reviewed the patient's medical records. I did perform a limited focused review of portions of the patient's old chart on the electronic medical record. The patient was here on March 20 for seizures. She takes 1750 mg of [address]ppra. The CT on her head was negative. Her Keppra level was at 22 at that time. Home Medications Current Medication List: was personally reviewed by me Laboratory Data Attestation: I reviewed the patient's lab results. Result diagrams: 04/02/19 20:15 04/02/19 20:15 Lab Results 04/02/19 04/02/19 04/02/19 Range/Units 20:15 20:15 20:16 WBC 4.24 L (4.8-10.8) K/uL RBC 3.58 L (4.2-5.4) M/uL Hgb 11.2 L (12.0-16.0) g/dL Hct 33.6 L (37-47) % MCV 93.9 (80-100) fL MCH 31.3 (25-34) pg MCHC 33.3 (32-36) g/dL RDW Std Deviation 42.8 (36.4-46.3) fL RDW Coeff of Clark 12.4 (11.5-14.5) % Plt Count 111 L (130-400) K/uL MPV 8.4 (7.4-10.4) fL Immature Gran % (Auto) 0.2 % Neut % (Auto) 42.7 % Lymph % (Auto) 42.2 % Garza % (Auto) 9.9 % Eos % (Auto) 4.5 % Baso % (Auto) 0.5 % Immature Gran # (Auto) 0.01 (0.00-0.02) K/uL Neut # (Auto) 1.81 (1.4-6.5) K/uL Lymph # (Auto) 1.79 (1.2-3.4) K/uL Garza # (Auto) 0.42 (0.11-0.59) K/uL Eos # (Auto) 0.19 (0-0.5) K/uL Baso # (Auto) 0.02 (0-0.2) K/uL Sodium 146 H (136-145) mmol/L Potassium 3.9 (3.5-5.1) mmol/L Chloride 111 H (98-107) mmol/L Carbon Dioxide 26 (21-32) mmol/L Anion Gap 9.0 (3-11) BUN 8 (7-18) mg/dl Creatinine 0.92 (0.6-1.2) mg/dl Est Cr Clr Drug Dosing Not Reportable Est GFR ( Amer) 79.6 Est GFR (Non-Af Amer) 68.6 BUN/Creatinine Ratio 8.5 L (10-20) Glucose 117 H (70-99) mg/dl Calcium 8.6 (8.5-10.1) mg/dl Magnesium 2.1 (1.8-2.4) mg/dl Total Bilirubin 0.2 (0.2-1) mg/dl AST 24 (15-37) U/L ALT 46 (12-78) U/L Alkaline Phosphatase 137 H (45-117) U/L Total Creatine Kinase 74 (26-192) U/L Total Protein 6.9 (6.4-8.2) gm/dl Albumin 3.4 (3.4-5.0) gm/dl Globulin 3.5 (2.5-4.0) gm/dl Albumin/Globulin Ratio 1.0 (0.9-2) Phenytoin 3.0 L (10-20) mcg/ml MDM Narrative I did evaluate the patient as noted above. The patient is currently asymptomat ic. Apparently she was with her family and had a 20-minute seizure. She then subsequently had 3 seizures at her residence. She is neurologically intact. She has been taking the appropriate doses of anticonvulsants prescribed to her. IV access was established. The patient was placed on a continuous monitoring coordinator. I did order and review the patient's blood work as noted in the electronic medical record. She has pancytopenia which is chronic. Her sodium is slightly elevated. Phenytoin level is 3 but the patient's chart indicates that she is on it as a mood stabilizer. I did discuss case with the neurologist on-call. She recommended giving the patient Keppra 500 mg in the ED. She also recommended increasing her Topamax to to 50 mg twice daily. She recommend hospitalization as the patient only lives in a senior care and will not be able to be closely monitored. I did discuss the case with the hospitalist and discussed the neurologist recommendations. I did treat the patient with Keppra 500 mg IV. Impression & Plan Absence seizures, intractable, Pancytopenia Discharge Plan Visit Data *Final* Discharge Date/Time: 04/02/19 22:05 Chief Complaint: Seizure Stated Complaint: Seizure ED Provider: Khai Delcid Discharge Problem: Absence seizures, intractable, Pancytopenia Patient Disposition: Admitted As Inpatient Discharge Instructions Interventions: ED Discharge Assessment Last Done: 04/02/19 22:05 The scribe's documentation has been prepared under my direction and personally reviewed by me in its entirety. I confirm that the note above accurately reflects all work, treatment, procedures, and medical decision making performed by me.
[2019-04-03] MEDS ORDERED: ARTIFICIAL TEARS OP PRN (02:30)
[2019-04-03] MEDS: HEPARIN SOD 5,000 UNIT/0.5 ML VIAL SQ SCH ×2 (05:40→13:51)
[2019-04-03 06:05] LABS: Hematocrit (blood only) 32.7 % (37-47); Hemoglobin 10.6 g/dL (12.0-16.0); Mean Corpuscular Hgb Conc 32.4 g/dL (32-36); Mean Corpuscular Volume 95.6 fL (80-100); RDW Coefficient of Variation 12.6 % (11.5-14.5); RDW Standard Deviation 43.8 fL (36.4-46.3); Red Blood Count 3.42 M/uL (4.2-5.4); White Blood Count 3.89 K/uL (4.8-10.8)
[2019-04-03 06:23] LABS: Prothrombin Time 10.3 Seconds (9.0-12.0)
[2019-04-03] MEDS ORDERED: LEVOTHYROXINE SODIUM 125 MCG TABLET PO SCH (06:30)
[2019-04-03 06:35] LABS: Mean Platelet Volume 8.7 fL (7.4-10.4); Platelet Count 98 K/uL (130-400)
[2019-04-03 06:36] LABS: Platelet Estimate Decreased (Normal)
[2019-04-03 06:37] LABS: BUN Creatinine Ratio 13.1 (10-20); Calcium 8.4 mg/dl (8.5-10.1); Est GFR (African American) 101.8; Est GFR (Non-African American) 87.9; Potassium 3.9 mmol/L (3.5-5.1)
[2019-04-03] MEDS ORDERED: OXYBUTYNIN CHLORIDE 5 MG TAB PO SCH (09:00)
[2019-04-03] MEDS ORDERED: CARVEDILOL 3.125 MG TAB PO SCH (09:00)
[2019-04-03] MEDS ORDERED: DOCUSATE SODIUM 100 MG CAP PO SCH (09:00)
[2019-04-03] MEDS ORDERED: FLUTICASONE PROPIONATE NA SPR 16 GM BTL NAE SCH (09:00)
[2019-04-03] MEDS ORDERED: PANTOprazole 40 MG TAB PO SCH (09:00)
[2019-04-03] MEDS ORDERED: VENLAFAXINE HCL XR 150 MG CAPXR PO SCH (09:00)
[2019-04-03] MEDS ORDERED: FUROSEMIDE 40 MG TAB PO SCH (09:00)
[2019-04-03] MEDS ORDERED: levETIRAcetam 500 MG TAB PO SCH (09:00)
[2019-04-03] MEDS ORDERED: levETIRAcetam 250 MG TAB PO SCH (09:00)
[2019-04-03] MEDS ORDERED: FOLIC ACID 1 MG TAB PO SCH (09:00)
[2019-04-03] MEDS ORDERED: TOPIRAMATE 100 MG TAB PO SCH ×2 (09:00→13:30)
[2019-04-03] MEDS ORDERED: ATORVASTATIN 20 MG TAB PO SCH (09:00)
[2019-04-03] MEDS ORDERED: POTASSIUM CHLORIDE 10 MEQ TABCR PO SCH (09:00)
[2019-04-03] MEDS ORDERED: PHENYTOIN SODIUM ER 100 MG CAP PO SCH (09:00)
[2019-04-03] MEDS ORDERED: cloNIDine HCl 0.1 MG TAB PO SCH ×2 (09:00→21:00)
--- NOTE | 2019-04-03 09:51 | Consultation Report ---
DATE OF CONSULTATION: 04/03/2019 ATTENTION: Kenneth Cifuentes MD and Tonya Nunez PA-C [facility] [address] [place] [address], [address] [place], [place] [address] REASON FOR CONSULTATION: Breakthrough seizure. HISTORY OF PRESENT ILLNESS: The patient is a 58-year-old right-handed female with Down syndrome, seizure disorder, hypothyroidism, depression, anxiety, hypertension, hyperlipidemia, obstructive sleep apnea, reflux, asthma, congestive heart failure. She was admitted through the ER, was said to have 7 witnessed seizures. The initial seizure "lasted 20 minutes." She was transported via EMS and no seizures noted en route. I have no description of the spells, but by history, they sound as if they are partial complex. The patient indicates that her aura to a seizure is holding her thumb between her index and middle finger. These episodes were typical. There was no fall or injury. It is unclear to this examiner whether or not she ever has generalized seizure. Her most recent seizure prior to that was 03/20/2019. She was seen in the Emergency Room, Dr. Cordero recommended that her Keppra be increased from 1500 b.i.d. to 1750 b.i.d. with no change in her Topamax dosing. The patient recently had a vagus nerve stimulator placed per the chart. She developed an infection in the surrounding tissues on 02/2019 and the stimulator was removed. She has not recently been ill. She is compliant with her medications. No fevers, chills, sweats. She has chronic headaches. They are unchanged. No nausea, vomiting, visual changes, chest pain, shortness of breath, palpitations, rhinorrhea, abdominal pain, tingling, unilateral weakness, urinary symptoms. PAST MEDICAL HISTORY: As above. PAST SURGICAL HISTORY: Cataract, VNS, left forearm fracture with surgical repair. SOCIAL HISTORY: Nonsmoker, nondrinker. The patient lives in [facility]. FAMILY HISTORY: No family history of seizure. ALLERGIES: BEE VENOM, POTASSIUM AND TOMATO. HOME MEDICATIONS: Tylenol, albuterol, Abilify 15 mg at bedtime, atorvastatin, bisacodyl, carvedilol, clonazepam 0.5 at bedtime, clonidine, B12, vitamin D2, Flonase, folic acid, Lasix, hydroxyzine. Medical record here indicates Keppra 1500 b.i.d., although it was noted at a higher dose 1750 b.i.d., the dose is not known to this examiner. Mag oxide, melatonin, omeprazole, Zofran, oxybutynin, Dilantin 100 at bedtime, Topamax 200 b.i.d., potassium chloride, venlafaxine, albuterol, Tums, levothyroxine. LABORATORY DATA: CT of the head, noncontrast, which I have reviewed, shows no acute intracranial abnormality. White count 3.89 parenthetically, chronically low. H and H 10.6/32.7, platelet count 98. The patient has had platelet counts in this facility on several occasions 11/17/2018, 114; 01/10/2019, 106. Chemistry profile, chloride 112, calcium 8.4, albumin 3.4. TSH 1.93. OBJECTIVE: VITAL SIGNS: 36.6, 73, 18, 122/75, 90, 98%. GENERAL: The patient is awake and alert, oriented. She is an excellent historian. She does not have typical Down facies. There is an excoriated and healing area in the left neck, presumably at the region of the removal of the VNS. Her pupils are equal and postsurgical. Optic nerves were difficult to visualize. Normal motility, facial symmetry. There is some blepharospasm on the left. Otherwise, face is symmetric. Tongue is midline. Motor 5/5, no drift. Normal rapid alternating movements. Symmetric reflexes. Downgoing toes. Tkwvbi-fa-nazj and duwk-jp-[id number] is normal. Her gait is mildly wide based. IMPRESSION: Breakthrough seizures, partial complex. I have no reason to expect pseudoseizures. Certainly defer in that regard to her treating neurologist. We have given her an additional 500 mg of Keppra intravenously, maintain the dose of Keppra 1750 b.i.d. and increase the dose of Topamax to 250 b.i.d. The patient has not had any recurrent episodes while hospitalized. A Keppra level was drawn. It is a send out and will not be back during her hospitalization, I think provided the patient has had no further seizures she can return t.o her assisted living facility today I do not think she needs an EEG prior to discharge. She should follow up with Tonya Nunez and Dr. Rockwell post-discharge. [facility]
--- NOTE | 2019-04-03 11:45 | Hospitalist Progress Note ---
Date of Service April 03, 2019 Assessment & Plan (1) Seizure disorder: per admitting SVC notes: Sent to the ER with report of multiple seizure episodes more than 7? Dilantin level subtherapeutic On-call [facility] neurology contacted by ER physician recommended loading dose of Keppra-given in ER Neurologist Dr. Babb recommends: Topamax dose increased to 250 mg twice daily continue outpatient Keppra 1750 mg twice daily and Dilantin 100mg HS ff up with Neurologist in 1 week (2) Down syndrome: answers all questions appropriately (3) Hypothyroidism: Continue levothyroxine (4) Chronic CHF: No evidence of cardiac/congestive heart failure decompensation Continue outpatient Lasix (5) HTN (hypertension): BP stable continue outpatient meds (6) HLD (hyperlipidemia): On statin (7) Anxiety and depression: Continue outpatient meds Mood appears to be stable (8) ODELL (obstructive sleep apnea): Ordered for CPAP at night DNR as per discussion with pt Follows with Dr Cifuentes for routine care ff up with PCP in 3-5 days ff up with Neurologist in 1 week Subjective ff up for breakthrough seizures seen resting in bedside chair, comfortable states she feels better overall no seizures overnight denies confusion, headache, dizziness no other symptoms states she is ready and would like to be discharged today Review of Systems Review of Systems: All systems reviewed & are unremarkable except as noted in HPI & below Physical Exam Physical Exam: General- oriented x 3, not in distress, speaks in sentences with no effort or accessory muscle use Head- atraumatic Eyes- PERRL, EOMI, anicteric ENT- oropharynx clear Neck- supple, no JVD, no adenopathy, no thyromegaly; carotids +2/2, no bruits appreciated Lungs- clear to auscultation bilaterally, no rales/wheezes Heart- normal rate, regular rhythm; no murmur, no gallop, no rub appreciated Abdomen- normal bowel sounds, nondistended, soft, nontender, no masses or hepatosplenomegaly Extremities- no pretibial edema, no calf tenderness; peripheral pulses intact Neuro- alert, oriented x 3; CN 2-12 grossly intact; motor 5/5 bilaterally;sensation 100% on all extremities; no other gross focal neurologic deficits Skin- warm & dry Results & Data Vital Signs (Past 12 Hours) Vital Signs Temp Pulse Resp BP Pulse Ox 04/03/19 07:48 36.6 C 73 18 122/75 98
--- NOTE | 2019-04-03 13:20 | Discharge Summary ---
Date of Service April 03, 2019 Admission HPI Per Admitting Provider Pt is 58 y/o F with PMH Down syndrome, epilepsy, hypothyroidism, depression, anxiety, HTN, HLD, ODELL, GERD, asthma, CHF resented to ER with complaint of seizure. Reported that patient had 7 seizures witnessed by staff tonight. Reported first seizure lasted 20 minutes. Patient transported to ER via EMS and no reported seizures in route. Currently in ER patient's only complaint is feeling tired. Patient states does not remember having seizures tonight. She states usually prior to a seizure she has a warning sign of holding up her thumb between her index and middle finger. Patient states that did not happen today. Denies any loss of control of bowel or bladder. Patient reports is been taking her medications. States today she went to her mother's grave and that upset her. Reports most recent seizure 03/20/2019. She had ER visit and [facility] on 03/20/19 and at that time head CT negative. foundry manager neurology was consulted and it was suggested pt's Keppra be increased to 1750mg BID. Patient with recent history of vagus nerve stimulator placed at [facility]. In 02/2019 patient developed surrounding infection and stimulator was removed. Denies fever/chills, diaphoresis, N/V/D/C, CRUZ, dizziness, syncope, vision changes, neck pain, CP, SOB, orthopnea, palpitations, cough, sore throat, choking, otalgia, rhinorrhea, abdominal pain, paresthesias, weakness, extremity weakness, extremity edema, rashes, urinary symptoms.N fever/chills, diaphoresis, N/V/D/C, CRUZ, dizziness, syncope, acute vision changes, neck pain, CP, SOB, orthopnea, palpitations, cough, sore throat, choking, otalgia, rhinorrhea, abdominal pain, paresthesias, weakness, extremity weakness, extremity edema, rashes, urinary symptoms. Reports neurologist is in [place] and name starts with a "F". ?Dr Nunez. 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 Pt's brother Johnathan Lin # [phone] was contacted at pt's request to inform him that ptin the hospital. Admission Exam Per Admitting Provider General: no acute distress, obese Head: atraumatic, found face, flat features Eyes: PERRL, EOM's intact, conjunctiva non-injected, anicteric ENT: normal inspection external ears, nose, mucous membranes moist, no tongue laceration noted Neck: supple, trachea midline, left neck with scar and scab Lungs: clear, no respiratory distress, no wheezing/rhonchi/rales CV: RRR, no murmur Chest: upper left chest with healed surgical scar with scab to lateral aspect of incision, non-tender and no surrounding erythema Abd: normal BS, soft, non-tender Ext: no cyanosis, no calf tenderness Neuro: A&O x 3, no focal deficits noted, normal affect Skin: warm, dry Principal Diagnosis BREAKTHROUGH SEIZURES Discharge Data Allergies Allergy/AdvReac Type Severity Reaction Status Date / Time bee venom protein (honey bee) Allergy Unknown ANAPHYLAXIS Verified 04/02/19 21:19 potassium Allergy Unknown "LIQUID Verified 04/02/19 21:19 POTASSIUM" - " YOU ARE LOSING ME" tomato Allergy Unknown RASH Verified 04/02/19 21:19 Lettuce Allergy Unknown RASH Uncoded 04/02/19 21:19 Consultations 04/02/19 20:55 ED Decision to Admit Stat 04/02/19 22:29 Consult Case Management - Discharge Planning Routine Consult Neurology Routine Hospital Course (1) Seizure disorder: Sent to the ER with report of multiple seizure episodes more than 7? Dilantin level subtherapeutic Keppra Level pending On-call [facility] neurology contacted by ER physician recommended loading dose of Keppra-given in ER Topamax dose increased to 250 mg twice daily no recurrence of seizure since admission cleared for DC per Neuro Neurologist Dr. Babb recommends: Topamax dose increased to 250 mg twice daily continue outpatient Keppra 1750 mg twice daily and Dilantin 100mg HS ff up with Neurologist in 1 week (2) Down syndrome: answers all questions appropriately (3) Hypothyroidism: Continue levothyroxine (4) Chronic CHF: No evidence of cardiac/congestive heart failure decompensation Continue outpatient Lasix (5) HTN (hypertension): BP stable continue outpatient meds (6) HLD (hyperlipidemia): On statin (7) Anxiety and depression: Continue outpatient meds Mood appears to be stable (8) ODELL (obstructive sleep apnea): Ordered for CPAP at night DNR as per discussion with pt Follows with Dr Tanitsky for routine care ff up with PCP in 3-5 days ff up with Neurologist in 1 week Total Time Total Time Spent Total Time Spent (In Minutes): 45 MINUTES Discharge Plan Discharge Items Patient Disposition: Personal Residential Reason For Visit: Seizure Discharge Diagnosis: BREAKTHROUGH SEIZURES Discharge Goals: Diagnostic testing and Therapeutic intervention Activity: As commented below Activity Comment: RESUME ACTIVITY GRADUALLY TOLERATED, NO HEAVY EXERTION Lifting: Wait until after follow-up appointment Bathing Comment: NO BATHING IN THE TUB, NO SWIMMING Exercise/Sports: Wait until after follow-up appointment Driving/Machine Use Comment: NO DRIVING Non-emergency contact: Primary Care Provider and Neurologist Call non-emergency contact if: you have any medication questions and you have a fever Follow-up/Referrals: Jacque Green [Primary Care Provider] - Diet: Heart Healthy Addtl Provider Instructions: TOPAMAX INCREASED TO 250MG PO BID. CALL 911 IF WITH RECURRENCE OF SEIZURES. FOLLOW UP WITH PCP IN 3-5 DAYS. FOLLOW UP WITH NEUROLOGIST IN 1 WEEK. Prescriptions: New topiramate 100 mg Tablet 250 mg PO BID 30 Days Qty: 150 RF: 1 Continued docusate sodium 100 mg Capsule 100 mg PO BID RF: 0 levothyroxine 125 mcg Tablet 125 mcg PO DAILY RF: 0 albuterol sulfate 2.5 mg /3 mL (0.083 %) Solution For Nebulization 2.5 mg INHALATION Q4H PRN (Reason: Shortness Of Breath) RF: 0 Artificial Tears(op-[id number]-kjwt) 1-0.2-0.2 % Drops 2 drp OPB BID PRN (Reason: Dry Eye(S)) RF: 0 Cepacol Sore Throat (harinder-men) 15-3.6 mg Lozenge 1 bill mucous membrane UD PRN (Reason: Unknown) RF: 0 cyclobenzaprine 10 mg Tablet 10 mg PO Q8H PRN (Reason: Spasms) RF: 0 oxycodone 5 mg Tablet 5 mg PO Q4H PRN (Reason: Pain) RF: 0 calcium carbonate [Tums] 200 mg calcium (500 mg) Tablet,Chewable 200 mg PO QID PRN (Reason: Dyspepsia) RF: 0 Preparation H Maximum Strength 0.25-1 % Cream 1 applic CA BID PRN (Reason: Pain) RF: 0 nystatin [Nystop] 100,000 unit/gram Powder 1 applic TOPICAL BID PRN (Reason: Skin Irritation) RF: 0 furosemide [Lasix] 40 mg Tablet 40 mg PO QAM RF: 0 clonidine HCl 0.1 mg Tablet 0.1 mg PO HS RF: 0 clonidine HCl 0.1 mg Tablet 0.05 mg PO QAM RF: 0 acetaminophen [Tylenol] 325 mg Tablet 650 mg PO Q6H MDD 3G PRN (Reason: Fever Or Pain) RF: 0 atorvastatin 20 mg Tablet 20 mg PO QAM RF: 0 ondansetron HCl [Zofran] 4 mg Tablet 4 mg PO Q8H PRN (Reason: Nausea) RF: 0 clonazepam 0.5 mg Tablet 0.5 mg PO HS PRN (Reason: Anxiety) RF: 0 potassium chloride 10 mEq Tablet Extended Release 10 meq PO BID RF: 0 phenytoin sodium extended 100 mg Capsule 100 mg PO HS RF: 0 melatonin 3 mg Tablet 3 mg PO HS RF: 0 carvedilol 3.125 mg Tablet 3.125 mg PO BID RF: 0 magnesium hydroxide [Milk of Magnesia] 400 mg/5 mL Suspension 30 ml PO DAILY PRN (Reason: Constipation) RF: 0 cyanocobalamin (vitamin B-12) 1,000 mcg/mL Solution 1,000 mcg IM MO RF: 0 omeprazole 20 mg Capsule,Delayed Release(Dr/Ec) 20 mg PO QAM RF: 0 folic acid 1 mg Tablet 1 mg PO DAILY RF: 0 levetiracetam [Keppra] 750 mg Tablet 1,500 mg PO BID RF: 0 ergocalciferol (vitamin D2) 50,000 unit Capsule 50,000 unit PO WK RF: 0 epinephrine [EpiPen] 0.3 mg/0.3 mL Auto-Injector 0.3 mg IM UD PRN (Reason: Allergic Reaction) RF: 0 albuterol sulfate [Ventolin HFA] 90 mcg/actuation Hfa Aerosol Inhaler 2 puff INHALATION Q6H PRN (Reason: Shortness Of Breath Or Wheezing) RF: 0 oxybutynin chloride 5 mg Tablet 5 mg PO BID RF: 0 hydroxyzine HCl 10 mg Tablet 10 mg PO QID PRN (Reason: Anxiety) RF: 0 fluticasone propionate [Flonase Allergy Relief] 50 mcg/actuation Dillon,Suspension 1 spray INTRANASAL BID RF: 0 bisacodyl 5 mg Tablet 10 mg PO HS PRN (Reason: Constipation) RF: 0 aripiprazole [Abilify] 15 mg Tablet 15 mg PO HS RF: 0 venlafaxine 150 mg Tablet Extended Release 24hr 150 mg PO DAILY RF: 0 levetiracetam [Keppra] 250 mg Tablet 250 mg PO BID RF: 0 Discontinued topiramate [Topamax] 100 mg Tablet 200 mg PO BID RF: 0 Stand-Alone Forms: [facility] Discharge Orders: Discharge Order (Routine); Ordered 04/03/19 Ordered By: Carlos River Admission Data Admit Date/Time: 04/02/19 21:48 Attending Provider: Carlos River Admit Provider: Brisa Colmenares Primary Care Provider: Jacque Green Other Providers: Ezequiel Severino ; Rosette Jose ; Dorian Cordeor ; Rosette Babb ; Randall Rico Service: Medical
[2019-04-03] MEDS ORDERED: ARIPiprazole 15 MG TAB PO SCH (21:00)
[2019-04-03] MEDS ORDERED: CYANOCOBALAMIN 1000 MCG/ML VIAL IM PRN (21:41)
== END 2019-04-03 14:47 | disposition home or self-care (01) ==
LOC: 4W 19:49 → ED 19:49 → 4W 22:05

== ENCOUNTER 2019-04-10 18:56 | Inpatient (IN) ==
[2019-04-10 19:49] LABS: Basophils # (auto) 0.01 K/uL (0-0.2); Basophils % (auto) 0.2 %; Eosinophils # (auto) 0.17 K/uL (0-0.5); Eosinophils % (auto) 3.7 %; Hematocrit (blood only) 34.6 % (37-47); Hemoglobin 11.2 g/dL (12.0-16.0); Immature Granulocytes # (auto) 0.01 K/uL (0.00-0.02); Immature Granulocytes % (auto) 0.2 %; Lymphocytes # (auto) 1.82 K/uL (1.2-3.4); Lymphocytes % (auto) 39.8 %; Mean Corpuscular Hgb Conc 32.4 g/dL (32-36); Mean Corpuscular Volume 95.3 fL (80-100); Mean Platelet Volume 8.7 fL (7.4-10.4); Monocytes % (auto) 8.8 %; Neutrophils # (auto) 2.16 K/uL (1.4-6.5); Neutrophils % (auto) 47.3 %; Platelet Count 127 K/uL (130-400); RDW Coefficient of Variation 12.6 % (11.5-14.5); RDW Standard Deviation 43.9 fL (36.4-46.3); Red Blood Count 3.63 M/uL (4.2-5.4); White Blood Count 4.57 K/uL (4.8-10.8)
[2019-04-10] MEDS ORDERED: SODIUM CHLORIDE 0.9% 1000ML 1,000 ML IV SCH (20:15)
[2019-04-10 20:17] LABS: Alanine Aminotransferase 46 U/L (12-78); Albumin Level 3.6 gm/dl (3.4-5.0); Aspartate Aminotransferase 23 U/L (15-37); BUN Creatinine Ratio 13.8 (10-20); Blood Urea Nitrogen 12 mg/dl (7-18); Calcium 8.5 mg/dl (8.5-10.1); Carbon Dioxide 28 mmol/L (21-32); Chloride 108 mmol/L (98-107); Est GFR (African American) 85.1; Est GFR (Non-African American) 73.4; Glucose 111 mg/dl (70-99); Sodium 141 mmol/L (136-145)
[2019-04-10 20:19] LABS: Alkaline Phosphatase 153 U/L (45-117); Bilirubin,Total 0.1 mg/dl (0.2-1); Globulin 3.6 gm/dl (2.5-4.0); Total Protein 7.2 gm/dl (6.4-8.2)
[2019-04-10 21:47] LABS: Magnesium 2.2 mg/dl (1.8-2.4); Phosphorus 3.5 mg/dl (2.5-4.9); Troponin I < 0.015 ng/ml (0-0.045)
--- NOTE | 2019-04-10 22:03 | XRay Report ---
CHEST AND ABDOMEN 2 VIEWS HISTORY: constipation COMPARISON: None. FINDINGS: No pneumothorax. No pleural effusions. The lungs are clear. The heart is borderline enlarge d. No evidence for pulmonary edema. Prior cholecystectomy. No pneumoperitoneum. No pneumatosis. No renal or ureteral calculi. Levoscolios is and degenerative changes within the lumbar spine. Moderate to large amount well-formed stool seen within the colon. No evidence for bowel obstruction. IMPRESSION: 1. No acute process within the chest. 2. No evidence for bowel obstruction. 3. Moderate to large amount of well-formed stool seen within the colon. Electronically signed by: Jose J Early M.D. 04/10/2019 10:01 PM
[2019-04-10 22:23] LABS: Appearance Urine Clear (Clear); Bilirubin Urine Negative (Negative); Blood Urine Negative (Negative); Color Urine Yellow; Glucose Urine UA Negative (Negative); Ketones Urine Negative (Negative); Leukocyte Esterase Urine Negative (Negative); Nitrite Urine Negative (Negative); Protein Urine Negative (Negative); Specific Gravity Urine 1.007 (1.000-1.030); Urobilinogen Urine Negative (Negative); pH Urine 6.5 (4.5-7.5)
[2019-04-10] MEDS ORDERED: TOPIRAMATE 50 MG TAB PO STA (23:27)
[2019-04-11] MEDS ORDERED: clonazePAM 0.5 MG TAB PO PRN (03:11)
[2019-04-11] MEDS ORDERED: CYCLOBENZAPRINE HCL 10 MG TAB PO PRN (03:11)
[2019-04-11] MEDS ORDERED: EPINEPHRINE ADULT AUTO-INJECT 0.3 MG SYR IM PRN (03:11)
[2019-04-11] MEDS ORDERED: ONDANSETRON INJ 2 MG/ML 2 ML VIAL IV PRN (03:11)
[2019-04-11] MEDS ORDERED: OXYCODONE HCL IR 5 MG TAB (IMMEDIATE RELEASE) PO PRN (03:11)
[2019-04-11] MEDS ORDERED: ALBUTEROL 0.083% NEBU SOLN 3 ML VIAL INH PRN (03:11)
[2019-04-11] MEDS ORDERED: NYSTATIN POWDER 15GM BTL EXT PRN (03:11)
[2019-04-11] MEDS ORDERED: LORazepam 1.5 MG/3 ML VIAL IV PRN (03:11)
[2019-04-11] MEDS ORDERED: MAGNESIUM HYDROXIDE SUSP 30 ML UDC PO PRN (03:11)
[2019-04-11] MEDS ORDERED: ACETAMINOPHEN 325 MG TAB PO PRN ×2 (03:11→06:32)
[2019-04-11] MEDS ORDERED: ALBUTEROL HFA 8 GM INHALER INH PRN (03:11)
[2019-04-11] MEDS ORDERED: hydrOXYzine HCl 10 MG TAB PO PRN (03:11)
[2019-04-11] MEDS ORDERED: NITROGLYCERIN SL 0.4 MG/TAB TAB SL PRN (03:11)
[2019-04-11] MEDS ORDERED: CALCIUM CARBONATE 500 MG CHEWABLE TAB PO PRN (03:11)
[2019-04-11] MEDS ORDERED: POLYETHYLENE (MIRALAX) 17 GM PACK PO PRN (03:11)
[2019-04-11] MEDS ORDERED: ARTIFICIAL TEARS OPB PRN (03:45)
[2019-04-11] MEDS ORDERED: BISACODYL 5 MG TABEC PO PRN (03:45)
[2019-04-11] MEDS: LEVOTHYROXINE SODIUM 125 MCG TABLET PO SCH (06:07)
[2019-04-11] MEDS ORDERED: ONDANSETRON 4 MG TAB PO PRN (06:32)
[2019-04-11] MEDS ORDERED: LACTULOSE SYRUP 30 GM/45 ML UDP PO ONE (06:45)
[2019-04-11] MEDS ORDERED: BISACODYL 10 MG SUPP PR ONE (07:15)
--- NOTE | 2019-04-11 08:05 | History and Physical Report ---
DATE OF ADMISSION: 04/11/2019 CHIEF COMPLAINT: Breakthrough seizures. HISTORY OF PRESENT ILLNESS: This is a 58-year-old female with past medical history significant for Down syndrome but able to care of herself. She is from [facility], hx of epilepsy, hypothyroidism, depression, anxiety, hypertension, hyperlipidemia, obstructive sleep apnea, GERD, asthma, CHF, presents with episode of seizures. As per patient, she had a seizure and she does not remember what happened and she was brought to the hospital. As per the nursing staff she was sitting in a chair and she had about 3-4 episodes of seizures in the 7-minute duration at which time it was decided to bring her to the hospital. As per nursing staff whenever she gets seizures she cries and she also clinches her hands. The patient has no bowel or bladder incontinence, no biting of the tongue. Currently hemodynamically stable, alert and awake and oriented x3. Denies any headache, no dizziness. No blurred visions. No earache, no runny nose, no sore throat. Appetite is okay. No dysphagia, no chest pain, no shortness of breath, no cough, no fever, no nausea, no vomiting and no abdominal pain. Normal bowel and bladder movements. No blood in the stools, no black stools, no hematuria, no burning micturition, no rash. ER physician spoke with the neurologist building components designer and was recommended to increase the Topamax to 300 mg p.o. at bedtime and give one dose now.Actually it was recommended to send her back and observe but she has Down syndrome and she lives at [facility] it was decided to observe in the hospital. ALLERGIES: BEE VENOM, POTASSIUM, TOMATO AND LETTUCE. PAST MEDICAL HISTORY: As mentioned above. PAST SURGICAL HISTORY: Cataract surgery, status post placement of vagus nerve stimulation which was taken out. FAMILY HISTORY: Unknown family history. SOCIAL HISTORY: Currently lives at [facility], disabled. No smoking history. No alcohol or substance abuse. REVIEW OF SYSTEMS: As per HPI. Rest of review of systems negative. PHYSICAL EXAMINATION: GENERAL: The patient is obese, not in acute distress. VITAL SIGNS: Temperature 36.8, pulse 67, respiratory rate 16, blood pressure 137/92, oxygen 97% room air. HEENT: No pallor, no icterus. Pupils equal, round, and reactive to light. NECK: No JVD, no masses, no carotid bruits. CARDIOVASCULAR: S1, S2 heard. Regular rate and rhythm. No murmur, no gallop. RESPIRATORY SYSTEM: Normal AP diameter. No accessory muscle use. No wheezing, no crackles. ABDOMEN: Soft, bowel sounds present. Nontender. No distention. CENTRAL NERVOUS SYSTEM: Cranial nerves II-XII grossly intact, nonfocal. EXTREMITIES: No edema, no erythema. LABORATORY DATA: WBC of 4.5, hemoglobin 11.2, hematocrit 34.6, platelets 127. Sodium 141, potassium 4, chloride 108, bicarbonate 28, BUN 12, creatinine 0.8, serum glucose 111, calcium 8.5, phosphorus 3.5, magnesium 2.2, total bilirubin 0.1, AST 23, ALT 46, alkaline phosphatase 153. Troponin I less than 0.015. Total protein 7.2, lipase 122. TSH 6.7. Urinalysis negative. Dilantin level is 3.2 Keppra level pending. Chest x-ray and abdominal x-ray: No acute process within the chest, no evidence of bowel obstruction, moderate to large amount of well-formed stool within the colon. EKG: Normal sinus rhythm with rate of 68, prolonged QT with QTC of 491. No acute ST changes seen. ASSESSMENT AND PLAN: This is a 58-year-old female who presents with breakthrough seizures. 1. Breakthrough seizures. The patient is on Topamax 250 b.i.d., Keppra 1750 b.i.d. Neurology advised to increase night dose of Topamax to 300 mg and will observe in Med-Surg tele, EEG. We will also place on IV Ativan p.r.n. for breakthrough seizures and consult Neurology for further recommendations. 2. Sleep apnea. Continue CPAP at bedtime. 3. Down syndrome. High level function Down syndrome, answers questions appropriately and obeys simple commands. We will send the patient back to [facility] when the patient is stable. 4. Hypothyroidism. Continue Synthroid. 5. History of chronic congestive heart failure. Continue home Lasix. 6. Hypertension, stable. Continue home medication. 7. Hyperlipidemia. Continue statin. 8. Anxiety and depression. Continue home medications. 9. Deep vein thrombosis prophylaxis, sequential compression devices for now. 10. Disposition, observe in Med-Surg tele. 11. Codes status: DNR as per my discussion with the patient. The patient was DNR in her last admissions. Social Service to help with discharge planning. ANNIE
[2019-04-11] MEDS ORDERED: VENLAFAXINE HCL XR 150 MG CAPXR PO SCH (09:00)
[2019-04-11] MEDS ORDERED: levETIRAcetam 250 MG TAB PO SCH (09:00)
[2019-04-11] MEDS: FLUTICASONE PROPIONATE NA SPR 16 GM BTL SCH ×2 (09:10→20:56)
[2019-04-11] MEDS: TOPIRAMATE 50 MG TAB PO SCH (09:11)
[2019-04-11] MEDS: PANTOprazole 40 MG TAB PO SCH (09:12)
[2019-04-11] MEDS: levETIRAcetam 500 MG TAB PO SCH ×2 (09:12→20:56)
[2019-04-11] MEDS: ATORVASTATIN 20 MG TAB PO SCH (09:12)
[2019-04-11] MEDS: POTASSIUM CHLORIDE 10 MEQ TABCR PO SCH ×2 (09:13→20:57)
[2019-04-11] MEDS: DOCUSATE SODIUM 100 MG CAP PO SCH ×2 (09:13→20:51)
[2019-04-11] MEDS: FUROSEMIDE 40 MG TAB PO SCH (09:13)
[2019-04-11] MEDS: OXYBUTYNIN CHLORIDE 5 MG TAB PO SCH ×2 (09:13→20:55)
[2019-04-11] MEDS: FOLIC ACID 1 MG TAB PO SCH (09:14)
[2019-04-11] MEDS: VENLAFAXINE HCL XR 150 MG CAPXR PO SCH (09:14)
[2019-04-11] MEDS: CARVEDILOL 3.125 MG TAB PO SCH ×2 (09:15→20:53)
[2019-04-11] MEDS: cloNIDine HCl 0.1 MG TAB PO SCH (09:15)
[2019-04-11 09:34] LABS: Basophils # (auto) 0.01 K/uL (0-0.2); Basophils % (auto) 0.2 %; Eosinophils # (auto) 0.19 K/uL (0-0.5); Eosinophils % (auto) 4.3 %; Hematocrit (blood only) 36.5 % (37-47); Lymphocytes # (auto) 1.34 K/uL (1.2-3.4); Lymphocytes % (auto) 30.5 %; Mean Corpuscular Hgb Conc 32.9 g/dL (32-36); Mean Corpuscular Volume 95.8 fL (80-100); Mean Platelet Volume 8.7 fL (7.4-10.4); Monocytes # (auto) 0.32 K/uL (0.11-0.59); Monocytes % (auto) 7.3 %; Neutrophils # (auto) 2.53 K/uL (1.4-6.5); Neutrophils % (auto) 57.7 %; Platelet Count 128 K/uL (130-400); RDW Coefficient of Variation 12.7 % (11.5-14.5); RDW Standard Deviation 44.2 fL (36.4-46.3); Red Blood Count 3.81 M/uL (4.2-5.4); White Blood Count 4.39 K/uL (4.8-10.8)
[2019-04-11 10:05] LABS: Platelet Estimate Normal (Normal)
[2019-04-11 10:07] LABS: BUN Creatinine Ratio 10.3 (10-20); Calcium 9.4 mg/dl (8.5-10.1); Creatinine Clr Calc Pharmacy 76.4 ml/min; Est GFR (African American) 101.8; Est GFR (Non-African American) 87.9; Magnesium 2.5 mg/dl (1.8-2.4)
--- NOTE | 2019-04-11 10:20 | Hospitalist Progress Note ---
Date of Service April 11, 2019 Assessment & Plan (1) Recurrent seizures: This is a 58-year-old female who presents with breakthrough seizures recurrent seizures -recently discharged from [facility] for seizures -The patient is on Topamax 250 b.i.d., phenytoin 100 mg HS, Keppra 1750 b.i.d -as per admitting nocturnalist physician, he discussed with Neurology physician from [facility] advised to increase night dose of Topamax to 300 mg and monitor in Med-Surg tele, EEG, also place on IV Ativan p.r.n for breakthrough seizures and consult [facility] Neurology (which had seen patient on previous hospitalization) for further recommendations -will continue Topamax as this dose and current home dosing of phenytoin and Keppra unless [facility] Neurology has other recommendations Down syndrome -High level of mental function, answers questions appropriately and follows directions - patient may return [facility] when the patient is stable and seizures are more well controlled Sleep apnea -Continue CPAP at bedtime. Hypothyroidism -Continue Synthroid. History of chronic congestive heart failure -Continue home Lasix. continue statin, continue carvedilol BID Hypertension, stable -Continue carvedilol BID, clonidine Anxiety and depression Continue home medications of Venlafaxine 150 mg daily and aripiprazole 15 mg qhs Deep vein thrombosis prophylaxis: SCD Disposition, observe in Med-Surg tele. Codes status: DNR as per nocturnalist discussion with the patient. The patient was DNR in her last admissions. Social Service to help with discharge planning Subjective Patient seen and examined at the bedside. She is awake and alert and cooperative on exam. Patient's motor strength is strong and symmetric on both sides. Patient does not appear to be confused. she responds to questions appropriately. Have explained to the patient that she is being monitored in hospital because of reported seizures from [facility] and medicine team is following recommendations for neurology doctors. currently, no headache. no pain. no chest pain. no abdomen pain. no shortness of breath. Physical Exam Constitutional: WD/WN, vitals as above Eyes: PERRL, conjunctivae normal, anicteric sclerae Neck: trachea midline, no thyromegaly normal visual inspection Cardiovascular: RRR, no murmur, no edema Gastrointestinal (Abdomen): normal bowel sounds, soft, nontender, no hepatosplenomegaly Musculoskeletal: no cyanosis or clubbing, extremities motor strength 5/5 Head/Neck/Chest: normocephalic and head atraumatic Neurologic: PERRL, EOMI, accommodation nl, no face palsy, no dysarthria CN's II-XI intact bilaterally Psychiatric: A+Ox3, euthymic affect Results & Data Vital Signs (Past 12 Hours) Vital Signs Temp Pulse Resp BP Pulse Ox 04/11/19 08:15 36.7 C 76 20 136/78 97 04/11/19 04:00 36.5 C 69 18 156/77 H 98 04/11/19 02:10 67 14 122/69 97 04/11/19 00:23 67 16 137/92 97 04/10/19 22:50 71 17 123/70 94
--- NOTE | 2019-04-11 14:24 | Neurology Consultation ---
Date of Consultation April 11, 2019 Assessment & Plan (1) Seizure disorder: 1. Keppra 1500 mg BID was increase 1750 mg BID 2. Topamax 250 mg BID was increased to 250 mg am 300 mg pm 3. dilantin 100 mg ER hs continued 4. recommend inpatient monitoring for evaluation of seizure vs pseudo seizures or behavior issues 5. fall and seizure precautions 6. will need follow up with Dr Rockwell neurology for further evaluation and treatment ok to discharge back to [facility] when medically stable Supervising Physician Co-Signing Physician Notes I have seen and discussed above patient with Dr Dorian Cordero, neurology I have seen Rhea today, discussed her case with Rosette Jose PA-C, reviewed what records we have regarding her case which are limited actually to the last hospitalization, reviewed her medication list and her current drug levels and at this point find her to be alert relatively cooperative somewhat untrustworthy historian but capable of imitating her "seizures" at the bedside and stating that she generally has 1 of these a week. This was her frequency at her prior personal care facility in the [facility] and continues apparently at [facility] where she is resided now since the first of the year She has been admitted twice now for recurrent seizures last for 3 events that occurred yesterday and she is now awake alert has really only mild manifestations of her mental retardation felt to be due to a high functioning Down syndrome and is able to provide history. The EEG shows some mild generalized slowing and some slow wave activity of symmetrical type probably that may actually reflect a eye movements rather than anything else and there are no classic unequivocal seizure discharges on the tracing She tells me that she may have had long-term monitoring studies done and also de scribes what may have been placement of a vagus nerve stimulator at the [facility] years ago that was removed because of its lack of effect At this point neurology is recommending that we get her Dilantin level into a therapeutic range by using a more reasonable dose than 800 mg a day she is currently taking, reduce her Keppra back to 1500 mg twice a day which was associated with a high level to begin with and to keep her Topamax at 250 twice a day and observe her for another 24 hours. We will try to obtain some records if we can from any hospitalization she may have had a [place] but at this point we may have to rely on information from her providers in the [place] area who apparently still continue to provide her neurologic care Dorian Cordero MD History of Present Illness Reason for Consultation: recurrent seizures Requesting Physician: Wilson Larsen MD Attending Physician: Wilson Larsen MD History of Present Illness Rhea is a 58 year old female with PMH Down syndrome, epilepsy, hypothyroidism, depression, anxiety, HTN, HLD, ODELL, GERD, asthma, CHF, presents with episode of seizures. She states she is not aware she had a seizure and she does not remember what happened and she was brought to the hospital. Nursing staff she was sitting in a chair and she had about 3-4 episodes of seizures in the 7- minute duration at which time it was decided to bring her to the hospital. She cries and she also clinches her hands. There was no bowel or bladder incontinence, no biting of the tongue. Her Topamax was increase in the ED from 250 mg BID to 250 mg am and 300 mg pm. Her Keppra was also increased from 1500 mg BID to 1750mg BID. Currently she states she is doing good and wants to go back to [facility]. denies CP, SOB, abdominal pain, one sided weakness, numbness tingling, N, V, falls. Allergies Allergy/AdvReac Type Severity Reaction Status Date / Time bee venom protein (honey bee) Allergy Unknown ANAPHYLAXIS Verified 04/02/19 21:19 potassium Allergy Unknown "LIQUID Verified 04/02/19 21:19 POTASSIUM" - " YOU ARE LOSING ME" tomato Allergy Unknown RASH Verified 04/02/19 21:19 Lettuce Allergy Unknown RASH Uncoded 04/02/19 21:19 Home Medications Home Medications Medication Instructions Recorded Confirmed Type acetaminophen [Tylenol] 650 mg PO Q6H PRN MDD 3G 02/10/19 04/11/19 History albuterol sulfate [Ventolin HFA] 2 puff INHALATION Q6H PRN 02/10/19 04/11/19 History aripiprazole [Abilify] 15 mg PO HS 02/10/19 04/11/19 History atorvastatin 20 mg PO QAM 02/10/19 04/11/19 History bisacodyl 10 mg PO HS PRN 02/10/19 04/11/19 History carvedilol 3.125 mg PO BID 02/10/19 04/11/19 History clonazepam 0.5 mg PO HS PRN 02/10/19 04/11/19 History clonidine HCl 0.05 mg PO QAM 02/10/19 04/11/19 History clonidine HCl 0.1 mg PO HS 02/10/19 04/11/19 History cyanocobalamin (vitamin B-12) 1,000 mcg IM MO 02/10/19 04/11/19 History epinephrine [EpiPen] 0.3 mg IM UD PRN 02/10/19 04/11/19 History ergocalciferol (vitamin D2) 50,000 unit PO WK 02/10/19 04/11/19 History fluticasone propionate [Flonase 1 spray INTRANASAL BID 02/10/19 04/11/19 History Allergy Relief] folic acid 1 mg PO DAILY 02/10/19 04/11/19 History furosemide [Lasix] 40 mg PO QAM 02/10/19 04/11/19 History hydroxyzine HCl 10 mg PO QID PRN 02/10/19 04/11/19 History levetiracetam [Keppra] 1,500 mg PO BID 02/10/19 04/11/19 History melatonin 3 mg PO HS 02/10/19 04/11/19 History omeprazole 20 mg PO QAM 02/10/19 04/11/19 History oxybutynin chloride 5 mg PO BID 02/10/19 04/11/19 History potassium chloride 10 meq PO BID 02/10/19 04/11/19 History Artificial Tears([id number]) 2 drp OPB BID PRN 03/20/19 04/11/19 History Cepacol Sore Throat (harinder-men) 1 bill MUCOUS MEMBRANE UD PRN 03/20/19 04/11/19 History Preparation H Maximum Strength 1 applic [place] BID PRN 03/20/19 04/11/19 History albuterol sulfate 2.5 mg INHALATION Q4H PRN 03/20/19 04/11/19 History calcium carbonate [Tums] 200 mg PO QID PRN 03/20/19 04/11/19 History cyclobenzaprine 10 mg PO Q8H PRN 03/20/19 04/11/19 History docusate sodium 100 mg PO BID 03/20/19 04/11/19 History levothyroxine 125 mcg PO DAILY 03/20/19 04/11/19 History nystatin [Nystop] 1 applic TOPICAL BID PRN 03/20/19 04/11/19 History oxycodone 5 mg PO Q4H PRN 03/20/19 04/11/19 History levetiracetam [Keppra] 250 mg PO BID 04/02/19 04/11/19 History ondansetron HCl 4 mg PO Q8H PRN 04/11/19 04/11/19 History phenytoin sodium extended 100 mg PO HS 04/11/19 04/11/19 History topiramate 250 mg PO BID 04/11/19 04/11/19 History venlafaxine 150 mg PO DAILY 04/11/19 04/11/19 History Patient History Medical History Chronic CHF (Chronic) ODELL (obstructive sleep apnea) (Chronic) Asthma (Chronic) GERD (gastroesophageal reflux disease) (Chronic) HLD (hyperlipidemia) (Chronic) HTN (hypertension) (Chronic) Anxiety and depression (Chronic) Hypothyroidism (Chronic) Seizure disorder (Chronic) Down syndrome (Chronic) Seizures Surgical History History of cataract surgery (Chronic) S/P placement of VNS (vagus nerve stimulation) device (Chronic) Family History Other Unknown family medical history Social History Preferred Language: Yakut Communication Ability: Effective Beliefs That Will Affect Care: None marital status: single Current Living Situation: Other Current Living Situation Comment: [facility] current occupational status: unemployed and disabled Other Information That Helps Us Care for You: Yes (Pt states "Keep my ex- away from me") Feels Safe at Home: Yes Safety Concerns: Feels Safe At This Time Smoking Status: Never smoker Hx Alcohol Use: No Hx Substance Use: No Physical Exam Physical Exam: Physical Exam: Constitutional: appearance over nourished, healthy Ears, Nose, Mouth and Throat: mucous membranes moist, no injection and skin normal, eyes normal Cardiovascular: normal S-1 and S-2 and regular rate and rhythm Respiratory: clear to auscultation (CTA) and no rales, rhonchi or wheeze Musculoskeletal: non pitting peripheral edema Skin: no stigmata of neurocutaneous disease noted and normal and intact Eyes: extraocular muscles intact (EOMI) and pupils equal, round and reactive to light (PERRL) NEUROLOGIC EXAMINATION: Mental status: Alert and interactive Oriented to [facility] Oriented to person Speech fluent with no evidence of aphasia Cranial Nerves smile eye brow raise symmetric Reflexes: Deep tendon reflexes were symmetrical and graded 2/5. Sensory: no deficit to light or cool touch Coordination: finger to nose no bi pass Gait/Stance: Posture normal. sitting in bedside chair Motor: Negative for pronator drift of out stretched arms with eyes closed. 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 hip flex plantar flex ext 5/5 bilaterally Results & Data Vital Signs (Past 12 Hours) Vital Signs Temp Pulse Pulse Resp BP Pulse Ox 04/11/19 11:59 62 04/11/19 08:15 36.7 C 76 20 136/78 97 04/11/19 04:00 36.5 C 69 18 156/77 H 98 Laboratory Results Abnormal lab results 04/10/19 04/10/19 04/10/19 Range/Units 19:31 19:31 19:31 WBC 4.57 L (4.8-10.8) K/uL RBC 3.63 L (4.2-5.4) M/uL Hgb 11.2 L (12.0-16.0) g/dL Hct 34.6 L (37-47) % Plt Count 127 L (130-400) K/uL Chloride 108 H (98-107) mmol/L Glucose 111 H (70-99) mg/dl Magnesium (1.8-2.4) mg/dl Total Bilirubin 0.1 L (0.2-1) mg/dl Alkaline Phosphatase 153 H (45-117) U/L TSH 6.700 H (0.300-4.500) uIu/ml Phenytoin (10-20) mcg/ml 04/10/19 04/11/19 04/11/19 Range/Units 19:31 09:02 09:02 WBC 4.39 L (4.8-10.8) K/uL RBC 3.81 L (4.2-5.4) M/uL Hgb (12.0-16.0) g/dL Hct 36.5 L (37-47) % Plt Count 128 L (130-400) K/uL Chloride 112 H (98-107) mmol/L Glucose 105 H (70-99) mg/dl Magnesium 2.5 H (1.8-2.4) mg/dl Total Bilirubin (0.2-1) mg/dl Alkaline Phosphatase (45-117) U/L TSH (0.300-4.500) uIu/ml Phenytoin 3.2 L (10-20) mcg/ml Diagnostic Findings xray chest abdomin- No acute process within the chest. No evidence for bowel obstruction. Moderate to large amount of well-formed stool seen within the colon.
[2019-04-11] MEDS: PHENYTOIN SODIUM ER 100 MG CAP PO SCH (15:55)
--- NOTE | 2019-04-11 16:18 | Procedure Note ---
EEG Procedure Note Date of Service April 11, 2019 Start / End Times Start Time: 0800 End Time: [address] Larsen History Recurrent seizures Home Medication List Home Medications Medication Instructions Recorded Confirmed Type acetaminophen [Tylenol] 650 mg PO Q6H PRN MDD 3G 02/10/19 04/11/19 History albuterol sulfate [Ventolin HFA] 2 puff INHALATION Q6H PRN 02/10/19 04/11/19 History aripiprazole [Abilify] 15 mg PO HS 02/10/19 04/11/19 History atorvastatin 20 mg PO QAM 02/10/19 04/11/19 History bisacodyl 10 mg PO HS PRN 02/10/19 04/11/19 History carvedilol 3.125 mg PO BID 02/10/19 04/11/19 History clonazepam 0.5 mg PO HS PRN 02/10/19 04/11/19 History clonidine HCl 0.05 mg PO QAM 02/10/19 04/11/19 History clonidine HCl 0.1 mg PO HS 02/10/19 04/11/19 History cyanocobalamin (vitamin B-12) 1,000 mcg IM MO 02/10/19 04/11/19 History epinephrine [EpiPen] 0.3 mg IM UD PRN 02/10/19 04/11/19 History ergocalciferol (vitamin D2) 50,000 unit PO WK 02/10/19 04/11/19 History fluticasone propionate [Flonase 1 spray INTRANASAL BID 02/10/19 04/11/19 History Allergy Relief] folic acid 1 mg PO DAILY 02/10/19 04/11/19 History furosemide [Lasix] 40 mg PO QAM 02/10/19 04/11/19 History hydroxyzine HCl 10 mg PO QID PRN 02/10/19 04/11/19 History levetiracetam [Keppra] 1,500 mg PO BID 02/10/19 04/11/19 History melatonin 3 mg PO HS 02/10/19 04/11/19 History omeprazole 20 mg PO QAM 02/10/19 04/11/19 History oxybutynin chloride 5 mg PO BID 02/10/19 04/11/19 History potassium chloride 10 meq PO BID 02/10/19 04/11/19 History Artificial Tears([id number]) 2 drp OPB BID PRN 03/20/19 04/11/19 History Cepacol Sore Throat (harinder-men) 1 bill MUCOUS MEMBRANE UD PRN 03/20/19 04/11/19 History Preparation H Maximum Strength 1 applic [place] BID PRN 03/20/19 04/11/19 History albuterol sulfate 2.5 mg INHALATION Q4H PRN 03/20/19 04/11/19 History calcium carbonate [Tums] 200 mg PO QID PRN 03/20/19 04/11/19 History cyclobenzaprine 10 mg PO Q8H PRN 03/20/19 04/11/19 History docusate sodium 100 mg PO BID 03/20/19 04/11/19 History levothyroxine 125 mcg PO DAILY 03/20/19 04/11/19 History nystatin [Nystop] 1 applic TOPICAL BID PRN 03/20/19 04/11/19 History oxycodone 5 mg PO Q4H PRN 03/20/19 04/11/19 History levetiracetam [Keppra] 250 mg PO BID 04/02/19 04/11/19 History ondansetron HCl 4 mg PO Q8H PRN 04/11/19 04/11/19 History phenytoin sodium extended 100 mg PO HS 04/11/19 04/11/19 History topiramate 250 mg PO BID 04/11/19 04/11/19 History venlafaxine 150 mg PO DAILY 04/11/19 04/11/19 History Inpatient Medication List Atorvastatin Calcium (Lipitor) 20 mg PO QAM [facility] Stop: 05/11/19 08:59 Last Admin: 04/11/19 09:12 Dose: 20 mg Documented by: [id number] Carvedilol (Coreg) 3.125 mg PO BID [facility] Stop: 05/11/19 08:59 Last Admin: 04/11/19 09:15 Dose: 3.125 mg Documented by: [id number] Clonidine HCl (Catapres) 0.05 mg PO QAM [facility] Stop: 05/11/19 08:59 Last Admin: 04/11/19 09:15 Dose: 0.05 mg Documented by: [id number] Docusate Sodium (Colace) 100 mg PO BID [facility] Stop: 05/11/19 08:59 Last Admin: 04/11/19 09:13 Dose: 100 mg Documented by: [id number] Fluticasone Propionate (Flonase) 1 sprays NA BID [facility] Stop: 05/11/19 08:59 Last Admin: 04/11/19 09:10 Dose: 1 sprays Documented by: [id number] Folic Acid (Folvite) 1 mg PO DAILY [facility] Stop: 05/11/19 08:59 Last Admin: 04/11/19 09:14 Dose: 1 mg Documented by: [id number] Furosemide (Lasix) 40 mg PO QAM [facility] Stop: 05/11/19 08:59 Last Admin: 04/11/19 09:13 Dose: 40 mg Documented by: [id number] Levetiracetam (Keppra) 1,500 mg PO BID [facility] Stop: 05/11/19 08:59 Last Admin: 04/11/19 09:12 Dose: 1,500 mg Documented by: [id number] Levetiracetam (Keppra) 250 mg PO BID [facility] Stop: 05/11/19 08:59 Last Admin: 04/11/19 13:39 Dose: 250 mg Documented by: [id number] Levothyroxine Sodium (Synthroid) 125 mcg PO DAILYBB [facility] Stop: 05/11/19 06:29 Last Admin: 04/11/19 06:07 Dose: 125 mcg Documented by: [id number] Oxybutynin Chloride (Ditropan) 5 mg PO BID [facility] Stop: 05/11/19 08:59 Last Admin: 04/11/19 09:13 Dose: 5 mg Documented by: [id number] Pantoprazole Sodium (Protonix) 40 mg PO DAILY [facility] Stop: 05/11/19 08:59 Last Admin: 04/11/19 09:12 Dose: 40 mg Documented by: [id number] Phenytoin Sodium (Dilantin Er) 100 mg PO DAILY [facility] Stop: 05/11/19 15:59 Last Admin: 04/11/19 15:55 Dose: 100 mg Documented by: [id number] Polyethylene Glycol (Miralax Powder Packet) 17 gm PO DAILY PRN PRN Reason: Constipation Stop: 05/11/19 03:10 Last Admin: 04/11/19 09:33 Dose: 17 gm Documented by: [id number] Potassium Chloride (Klor-Con M10) 10 meq PO BID [facility] Stop: 05/11/19 08:59 Last Admin: 04/11/19 09:13 Dose: 10 meq Documented by: [id number] Topiramate (Topamax) 250 mg PO QAM [facility] Stop: 05/11/19 08:59 Last Admin: 04/11/19 09:11 Dose: 250 mg Documented by: [id number] Venlafaxine HCl (Effexor Extended Release) 150 mg PO DAILY [facility] Stop: 05/11/19 08:59 Last Admin: 04/11/19 09:14 Dose: 150 mg Documented by: [id number] Discontinued Medications Bisacodyl (Dulcolax) 10 mg [facility] ONE ONE Stop: 04/11/19 07:16 Last Admin: 04/11/19 09:37 Dose: Not Given Documented by: [id number] Sodium Chloride (Nss 1000ml) 1,000 mls @ 125 mls/hr IV .Q8H [facility] Stop: 05/10/19 20:14 Last Infusion: 04/11/19 03:20 Dose: 0 mls/hr Documented by: [id number] Admin: 04/10/19 20:21 Dose: 125 mls/hr Documented by: [id number] Lactulose (Chronulac) 30 gm PO ONE ONE Stop: 04/11/19 06:46 Last Admin: 04/11/19 09:32 Dose: 30 gm Documented by: [id number] Topiramate (Topamax) 50 mg PO NOW STA Stop: 04/10/19 23:28 Last Admin: 04/11/19 00:21 Dose: 50 mg Documented by: [id number] Description This is a 21 electrode EEG with a single channel dedicated to limited EKG. The electrodes were placed in accordance with the International 10-20 system. This EEG is performed as a bedside recording and is a reasonable technical quality with some muscle movement artifacts occurring episodically and these are captured by video analysis of patient movement and behavior. Unfortunately adequate views of her facial structure are not available to support associate the frequency of her eye blinking which is important in terms of subsequent interpretation of the study During wakefulness there is evidence for background rhythm in the upper theta range at about 7 to 8 Hz and maximum frequency which is maximum in the posterior head regions and bilaterally symmetrical. Polymorphic mid to lower frequency modest amplitude theta activity seen over central regions in symmetrical fashion. Periodically there is a buildup of frontal slow wave activity which at times has the appearance of eye movement artifacts but unfortunately correlation with video analysis was not possible due to a lack of clear delineation of upper facial features on the video recording emesis activity is associated with spikes or spike wave discharges and no clinical manifestations are noted. Beta activity seen bifrontally. Photic stimulation produces no important changes. Interpretation This is an abnormal EEG with mild generalized rhythms and a buildup of symmetrical bifrontal slow-wave activity which may or may not be due to either movements but does not have a typical appearance of potentially epileptogenic discharges there is however no clear evidence for unequivocal potentially epileptogenic activity or for lateralized abnormalities Clinical Correlation Is there is evidence for nonspecific generalized encephalopathy with slow wave activity bifrontally of uncertain causation but no clear evidence for potentially epileptogenic activity is seen Dorian Cordero MD
[2019-04-11] MEDS ORDERED: TOPIRAMATE 50 MG TAB PO SCH (21:00)
[2019-04-11] MEDS ORDERED: PHENYTOIN SODIUM ER 100 MG CAP PO SCH ×5 (21:00)
[2019-04-11] MEDS ORDERED: cloNIDine HCl 0.1 MG TAB PO SCH (21:00)
[2019-04-11] MEDS ORDERED: ARIPiprazole 15 MG TAB PO SCH (21:00)
[2019-04-11] MEDS ORDERED: TOPIRAMATE 100 MG TAB PO SCH ×2 (21:00)
--- NOTE | 2019-04-12 01:55 | Emergency Department Note ---
Entered by Amadou Vasquez acting as a scribe for Destinee Brandt DO History of Present Illness General Chief complaint: Seizure Time Seen by Provider: 04/10/19 19:46 Source: patient History of Present Illness Onset (ago): hour(s) 1 Location: head (global) Pain Consistency: + now resolved Quality: + other (multiple seizures) Associated symptoms: + cough and + headaches The patient is a 58 year old female from [facility] who presents to the E mergency Room after multiple seizures occurring about 1-1.5 hours ago. EMS states that the patient was sitting in the chair when she developed the seizures. The patient states that she is unsure how many seizures she had, and she now feels back to baseline. She reports a history of seizure disorder. She states that she is unable to tell when she is going to have seizures, and whenever she has had them in the past her seizure medication dosage has been increased. She states that she did not bite her tongue. Denies incontinence. She notes a headache similar to those that have developed after her previous seizures. She reports a recent cough and constipation. She notes some discomfort on the left side of neck at the site of previous spinal stimulator removal. She denies any urinary symptoms or falls. She is unsure when she last saw her neurologist. States her neurologist is in the [facility]. Patient lives in a snf. Some difficulty with history due to patient's chronic cognitive disability. On review of EMR patient was noted to have a similar presentation prompted admission approximately a month ago. At that time patient's medications were changed on her Keppra and Topamax were increased. Home Medications Home Medications Medication Instructions Recorded Confirmed Type acetaminophen [Tylenol] 650 mg PO Q6H PRN MDD 3G 02/10/19 04/11/19 History albuterol sulfate [Ventolin HFA] 2 puff INHALATION Q6H PRN 02/10/19 04/11/19 History aripiprazole [Abilify] 15 mg PO HS 02/10/19 04/11/19 History atorvastatin 20 mg PO QAM 02/10/19 04/11/19 History bisacodyl 10 mg PO HS PRN 02/10/19 04/11/19 History carvedilol 3.125 mg PO BID 02/10/19 04/11/19 History clonazepam 0.5 mg PO HS PRN 02/10/19 04/11/19 History clonidine HCl 0.05 mg PO QAM 02/10/19 04/11/19 History clonidine HCl 0.1 mg PO HS 02/10/19 04/11/19 History cyanocobalamin (vitamin B-12) 1,000 mcg IM MO 02/10/19 04/11/19 History epinephrine [EpiPen] 0.3 mg IM UD PRN 02/10/19 04/11/19 History ergocalciferol (vitamin D2) 50,000 unit PO WK 02/10/19 04/11/19 History fluticasone propionate [Flonase 1 spray INTRANASAL BID 02/10/19 04/11/19 History Allergy Relief] folic acid 1 mg PO DAILY 02/10/19 04/11/19 History furosemide [Lasix] 40 mg PO QAM 02/10/19 04/11/19 History hydroxyzine HCl 10 mg PO QID PRN 02/10/19 04/11/19 History levetiracetam [Keppra] 1,500 mg PO BID 02/10/19 04/11/19 History melatonin 3 mg PO HS 02/10/19 04/11/19 History omeprazole 20 mg PO QAM 02/10/19 04/11/19 History oxybutynin chloride 5 mg PO BID 02/10/19 04/11/19 History potassium chloride 10 meq PO BID 02/10/19 04/11/19 History Artificial Tears(or-itki-wanm) 2 drp OPB BID PRN 03/20/19 04/11/19 History Cepacol Sore Throat (harinder-men) 1 bill MUCOUS MEMBRANE UD PRN 03/20/19 04/11/19 History Preparation H Maximum Strength 1 applic IA BID PRN 03/20/19 04/11/19 History albuterol sulfate 2.5 mg INHALATION Q4H PRN 03/20/19 04/11/19 History calcium carbonate [Tums] 200 mg PO QID PRN 03/20/19 04/11/19 History cyclobenzaprine 10 mg PO Q8H PRN 03/20/19 04/11/19 History docusate sodium 100 mg PO BID 03/20/19 04/11/19 History levothyroxine 125 mcg PO DAILY 03/20/19 04/11/19 History nystatin [Nystop] 1 applic TOPICAL BID PRN 03/20/19 04/11/19 History oxycodone 5 mg PO Q4H PRN 03/20/19 04/11/19 History levetiracetam [Keppra] 250 mg PO BID 04/02/19 04/11/19 History ondansetron HCl 4 mg PO Q8H PRN 04/11/19 04/11/19 History phenytoin sodium extended 100 mg PO HS 04/11/19 04/11/19 History topiramate 250 mg PO BID 04/11/19 04/11/19 History venlafaxine 150 mg PO DAILY 04/11/19 04/11/19 History Allergies Allergy/AdvReac Type Severity Reaction Status Date / Time bee venom protein (honey bee) Allergy Unknown ANAPHYLAXIS Verified 04/02/19 21:19 potassium Allergy Unknown "LIQUID Verified 04/02/19 21:19 POTASSIUM" - " YOU ARE LOSING ME" tomato Allergy Unknown RASH Verified 04/02/19 21:19 Lettuce Allergy Unknown RASH Uncoded 04/02/19 21:19 Past Med/Surg History Medical History Chronic CHF (Chronic) ODELL (obstructive sleep apnea) (Chronic) Asthma (Chronic) GERD (gastroesophageal reflux disease) (Chronic) HLD (hyperlipidemia) (Chronic) HTN (hypertension) (Chronic) Anxiety and depression (Chronic) Hypothyroidism (Chronic) Seizure disorder (Chronic) Down syndrome (Chronic) Seizures Surgical History History of cataract surgery (Chronic) S/P placement of VNS (vagus nerve stimulation) device (Chronic) Family History Other Unknown family medical history Social History Preferred Language: Cameroonian Communication Ability: Effective Beliefs That Will Affect Care: None marital status: single Current Living Situation: Other Current Living Situation Comment: [facility] current occupational status: unemployed and disabled Other Information That Helps Us Care for You: Yes (Pt states "Keep my ex- away from me") Feels Safe at Home: Yes Safety Concerns: Feels Safe At This Time Smoking Status: Never smoker Hx Alcohol Use: No Hx Substance Use: No Review of Systems See HPI for pertinent positives & negatives. and A total of 10 systems reviewed and were otherwise negative Physical Exam Vital Signs Vital Signs - 24 hr 04/10/19 19:19 04/10/19 19:28 04/10/19 20:19 Temperature 98.2 F Temperature Source Oral Sepsis Recent Fever Within 48 Hours No Sepsis New/Unexplained Change in Mental Status No Sepsis Action Taken by Nursing No Action Required Pulse Rate 74 Pulse Rate [Apical] 70 Respiratory Rate 18 19 Respiratory Effort / Characteristics Non-Labored Spontaneous Non-Labored Spontaneous Respiratory Depth Normal Normal Respiratory Pattern Regular Regular Blood Pressure 175/91 H Blood Pressure [Right Arm] 129/85 Blood Pressure Mean 119 Blood Pressure Mean [Right Arm] 99 Blood Pressure Position Lying Blood Pressure Position [Right Arm] Pulse Oximetry 97 98 Oxygen Delivery Method Room Air Room Air 04/10/19 22:50 Temperature Temperature Source Sepsis Recent Fever Within 48 Hours Sepsis New/Unexplained Change in Mental Status Sepsis Action Taken by Nursing Pulse Rate Pulse Rate [Apical] 71 Respiratory Rate 17 Respiratory Effort / Characteristics Non-Labored Spontaneous Respiratory Depth Normal Respiratory Pattern Regular Blood Pressure Blood Pressure [Right Arm] 123/70 Blood Pressure Mean Blood Pressure Mean [Right Arm] 87 Blood Pressure Position Blood Pressure Position [Right Arm] Sitting Pulse Oximetry 94 Oxygen Delivery Method Room Air GENERAL: edentulous, obese, no distress, non-toxic, facial features suggestive of Down's. EYE EXAM: normal conjunctiva, PERRLA, EOMI OROPHARYNX: no exudate, no erythema, lips, buccal mucosa, and tongue normal and mucous membranes are mildly dry NECK: supple, no nuchal rigidity, no adenopathy, non-tender, 2 separate scars noted to left lateral neck, the superior of which has a small area of exc oriation as though the patient had potentially scratched it open. No active bleeding or drainage, no surrounding erythema this, no stridor to the neck, patient has full range of motion of the neck without pain. LUNGS: Clear to auscultation. Normal chest wall mechanics, no w/r/r HEART: no murmurs, S1 normal and S2 normal ABDOMEN: abdomen soft, non-tender, normo-active bowel sounds, no masses, no r ebound or guarding. BACK: Back is symmetrical on inspection and there is no deformity, no midline te nderness, no CVA tenderness. SKIN: no rashes and no bruising UPPER EXTREMITIES: upper extremities are grossly normal. FROM, nml pulses b/l. LOWER EXTREMITIES: No pitting edema. FROM, nml pulses b/l. NEURO EXAM: Normal sensorium, cranial nerves II-XII grossly intact, normal speech, no gross weakness of arms, no gross weakness of legs. Gross sensation intact. Course 1956: The patient was evaluated in room C2A. A complete history and physical exa mination were performed. 2020: Review of EMR shows that the patient had similar presentation in March of this year. She was given additional Keppra and instructed to increase her daily Topomax. 0: I consulted Dr. Kent Neurology. He recommends increasing the patients daily Topomax to 300 in the morning and 250 in the evening. He feels that if the patient is back to baseline she can be safely discharged. 2333: I checked on the patient, who states that she is still feeling well. 2339: I consulted Dr. Werner [facility] Hospitalist. The patient will be reevaluated for hospitalization. Administered Medications Aripiprazole (Abilify) 15 mg PO [facility] Stop: 05/11/19 20:59 Last Admin: 04/11/19 20:51 Dose: 15 mg Documented by: [id number] Atorvastatin Calcium [facility]) [facility] Stop: 05/11/19 08:59 Last Admin: 04/11/19 09:12 Dose: 20 mg Documented by: [id number] Carvedilol (Coreg) 3.125 mg PO BID [facility] Stop: 05/11/19 08:59 Last Admin: 04/11/19 20:53 Dose: 3.125 mg Documented by: [id number] Admin: 04/11/19 09:15 Dose: 3.125 mg Documented by: [id number] Clonidine HCl (Catapres) 0.05 mg PO QAM [facility] Stop: 05/11/19 08:59 Last Admin: 04/11/19 09:15 Dose: 0.05 mg Documented by: [id number] Clonidine HCl (Catapres) 0.1 mg PO [facility] Stop: 05/11/19 20:59 Last Admin: 04/11/19 20:51 Dose: 0.1 mg Documented by: [id number] Docusate Sodium (Colace) 100 mg PO BID [facility] Stop: 05/11/19 08:59 Last Admin: 04/11/19 20:51 Dose: 100 mg Documented by: [id number] Admin: 04/11/19 09:13 Dose: 100 mg Documented by: [id number] Fluticasone Propionate (Flonase) 1 sprays NA BID [facility] Stop: 05/11/19 08:59 Last Admin: 04/11/19 20:56 Dose: 1 sprays Documented by: [id number] Admin: 04/11/19 09:10 Dose: 1 sprays Documented by: [id number] Folic Acid (Folvite) 1 mg PO DAILY [facility] Stop: 05/11/19 08:59 Last Admin: 04/11/19 09:14 Dose: 1 mg Documented by: [id number] Furosemide (Lasix) 40 mg PO QAM [facility] Stop: 05/11/19 08:59 Last Admin: 04/11/19 09:13 Dose: 40 mg Documented by: [id number] Levetiracetam (Keppra) 1,500 mg PO BID [facility] Stop: 05/11/19 08:59 Last Admin: 04/11/19 20:56 Dose: 1,500 mg Documented by: [id number] Admin: 04/11/19 09:12 Dose: 1,500 mg Documented by: [id number] Levetiracetam (Keppra) 250 mg PO BID [facility] Stop: 05/11/19 08:59 Last Admin: 04/11/19 13:39 Dose: 250 mg Documented by: [id number] Levothyroxine Sodium (Synthroid) 125 mcg PO DAILYBB [facility] Stop: 05/11/19 06:29 Last Admin: 04/11/19 06:07 Dose: 125 mcg Documented by: [id number] Oxybutynin Chloride (Ditropan) 5 mg PO BID [facility] Stop: 05/11/19 08:59 Last Admin: 04/11/19 20:55 Dose: 5 mg Documented by: [id number] Admin: 04/11/19 09:13 Dose: 5 mg Documented by: [id number] Pantoprazole Sodium (Protonix) 40 mg PO DAILY [facility] Stop: 05/11/19 08:59 Last Admin: 04/11/19 09:12 Dose: 40 mg Documented by: [id number] Phenytoin Sodium (Dilantin Er) 100 mg PO DAILY [facility] Stop: 05/11/19 15:59 Last Admin: 04/11/19 15:55 Dose: 100 mg Documented by: [id number] Phenytoin Sodium (Dilantin Er) 200 mg PO QPM [facility] Stop: 05/11/19 20:59 Last Admin: 04/11/19 20:53 Dose: 200 mg Documented by: [id number] Polyethylene Glycol (Miralax Powder Packet) 17 gm PO DAILY PRN PRN Reason: Constipation Stop: 05/11/19 03:10 Last Admin: 04/11/19 09:33 Dose: 17 gm Documented by: [id number] Potassium Chloride (Klor-Con M10) 10 meq PO BID [facility] Stop: 05/11/19 08:59 Last Admin: 04/11/19 20:57 Dose: 10 meq Documented by: [id number] Admin: 04/11/19 09:13 Dose: 10 meq Documented by: [id number] Topiramate (Topamax) 250 mg PO QAM [facility] Stop: 05/11/19 08:59 Last Admin: 04/11/19 09:11 Dose: 250 mg Documented by: [id number] Topiramate (Topamax) 200 mg PO QPM [facility] Stop: 05/11/19 20:59 Last Admin: 04/11/19 20:57 Dose: 200 mg Documented by: [id number] Topiramate (Topamax) 50 mg PO QPM [facility] Stop: 05/11/19 20:59 Last Admin: 04/11/19 20:58 Dose: 50 mg Documented by: [id number] Venlafaxine HCl (Effexor Extended Release) 150 mg PO DAILY [facility] Stop: 05/11/19 08:59 Last Admin: 04/11/19 09:14 Dose: 150 mg Documented by: [id number] Discontinued Medications Bisacodyl (Dulcolax) 10 mg IA ONE ONE Stop: 04/11/19 07:16 Last Admin: 04/11/19 09:37 Dose: Not Given Documented by: [id number] Sodium Chloride (Nss 1000ml) 1,000 mls @ 125 mls/hr IV .Q8H [facility] Stop: 05/10/19 20:14 Last Infusion: 04/11/19 03:20 Dose: 0 mls/hr Documented by: [id number] Admin: 04/10/19 20:21 Dose: 125 mls/hr Documented by: [id number] Lactulose (Chronulac) 30 gm PO ONE ONE Stop: 04/11/19 06:46 Last Admin: 04/11/19 09:32 Dose: 30 gm Documented by: [id number] Topiramate (Topamax) 50 mg PO NOW STA Stop: 04/10/19 23:28 Last Admin: 04/11/19 00:21 Dose: 50 mg Documented by: [id number] Medical Decision Making Differential Diagnosis Differential diagnosis includes: infection, hypoglycemia, electrolyte abnormalities, cardiac sources, intracerebral event, trauma, toxicologic, neurologic, as well as others were entertained. Medical Records Attestation: I reviewed the patient's medical records. Home Medications Current Medication List: was personally reviewed by me Laboratory Data Attestation: I reviewed the patient's lab results. Result diagrams: 04/11/19 09:02 04/11/19 09:02 Lab Results 04/10/19 04/10/19 04/10/19 Range/Units 19:04 19:31 19:31 WBC 4.57 L (4.8-10.8) K/uL RBC 3.63 L (4.2-5.4) M/uL Hgb 11.2 L (12.0-16.0) g/dL Hct 34.6 L (37-47) % MCV 95.3 (80-100) fL MCH 30.9 (25-34) pg MCHC 32.4 (32-36) g/dL RDW Std Deviation 43.9 (36.4-46.3) fL RDW Coeff of Clark 12.6 (11.5-14.5) % Plt Count 127 L (130-400) K/uL MPV 8.7 (7.4-10.4) fL Immature Gran % (Auto) 0.2 % Neut % (Auto) 47.3 % Lymph % (Auto) 39.8 % [place] % (Auto) 8.8 % Eos % (Auto) 3.7 % Baso % (Auto) 0.2 % Immature Gran # (Auto) 0.01 (0.00-0.02) K/uL Neut # (Auto) 2.16 (1.4-6.5) K/uL Lymph # (Auto) 1.82 (1.2-3.4) K/uL [place] # (Auto) 0.40 (0.11-0.59) K/uL Eos # (Auto) 0.17 (0-0.5) K/uL Baso # (Auto) 0.01 (0-0.2) K/uL Sodium 141 (136-145) mmol/L Potassium 4.0 (3.5-5.1) mmol/L Chloride 108 H (98-107) mmol/L Carbon Dioxide 28 (21-32) mmol/L Anion Gap 5.0 (3-11) BUN 12 (7-18) mg/dl Creatinine 0.87 (0.6-1.2) mg/dl Est Cr Clr Drug Dosing Not Reportable Est GFR ( Amer) 85.1 Est GFR (Non-Af Amer) 73.4 BUN/Creatinine Ratio 13.8 (10-20) Glucose 111 H (70-99) mg/dl Calcium 8.5 (8.5-10.1) mg/dl Phosphorus (2.5-4.9) mg/dl Magnesium (1.8-2.4) mg/dl Total Bilirubin 0.1 L (0.2-1) mg/dl AST 23 (15-37) U/L ALT 46 (12-78) U/L Alkaline Phosphatase 153 H (45-117) U/L Troponin I (0-0.045) ng/ml Total Protein 7.2 (6.4-8.2) gm/dl Albumin 3.6 (3.4-5.0) gm/dl Globulin 3.6 (2.5-4.0) gm/dl Albumin/Globulin Ratio 1.0 (0.9-2) Lipase (73-393) U/L TSH (0.300-4.500) uIu/ml Urine Color Yellow Urine Appearance Clear (Clear) Urine pH 6.5 (4.5-7.5) Ur Specific Yeso 1.007 (1.000-1.030) Urine Protein Negative (Negative) Urine Glucose (UA) Negative (Negative) Urine Ketones Negative (Negative) Urine Blood Negative (Negative) Urine Nitrite Negative (Negative) Urine Bilirubin Negative (Negative) Urine Urobilinogen Negative (Negative) Ur Leukocyte Esterase Negative (Negative) Phenytoin (10-20) mcg/ml 04/10/19 04/10/19 Range/Units 19:31 19:31 WBC (4.8-10.8) K/uL RBC (4.2-5.4) M/uL Hgb (12.0-16.0) g/dL Hct (37-47) % MCV (80-100) fL MCH (25-34) pg MCHC (32-36) g/dL RDW Std Deviation (36.4-46.3) fL RDW Coeff of Clark (11.5-14.5) % Plt Count (130-400) K/uL MPV (7.4-10.4) fL Immature Gran % (Auto) % Neut % (Auto) % Lymph % (Auto) % Windsor % (Auto) % Eos % (Auto) % Baso % (Auto) % Immature Gran # (Auto) (0.00-0.02) K/uL Neut # (Auto) (1.4-6.5) K/uL Lymph # (Auto) (1.2-3.4) K/uL Windsor # (Auto) (0.11-0.59) K/uL Eos # (Auto) (0-0.5) K/uL Baso # (Auto) (0-0.2) K/uL Sodium (136-145) mmol/L Potassium (3.5-5.1) mmol/L Chloride (98-107) mmol/L Carbon Dioxide (21-32) mmol/L Anion Gap (3-11) BUN (7-18) mg/dl Creatinine (0.6-1.2) mg/dl Est Cr Clr Drug Dosing Est GFR ( Amer) Est GFR (Non-Af Amer) BUN/Creatinine Ratio (10-20) Glucose (70-99) mg/dl Calcium (8.5-10.1) mg/dl Phosphorus 3.5 (2.5-4.9) mg/dl Magnesium 2.2 (1.8-2.4) mg/dl Total Bilirubin (0.2-1) mg/dl AST (15-37) U/L ALT (12-78) U/L Alkaline Phosphatase (45-117) U/L Troponin I < 0.015 (0-0.045) ng/ml Total Protein (6.4-8.2) gm/dl Albumin (3.4-5.0) gm/dl Globulin (2.5-4.0) gm/dl Albumin/Globulin Ratio (0.9-2) Lipase 122 (73-393) U/L TSH 6.700 H (0.300-4.500) uIu/ml Urine Color Urine Appearance (Clear) Urine pH (4.5-7.5) Ur Specific Yeso (1.000-1.030) Urine Protein (Negative) Urine Glucose (UA) (Negative) Urine Ketones (Negative) Urine Blood (Negative) Urine Nitrite (Negative) Urine Bilirubin (Negative) Urine Urobilinogen (Negative) Ur Leukocyte Esterase (Negative) Phenytoin 3.2 L (10-20) mcg/ml Imaging Data Radiologist's Impression: Radiology results as stated below per my review and the radiologist's interpretation: CHEST AND ABDOMEN 2 VIEWS HISTORY: constipation COMPARISON: None. FINDINGS: No pneumothorax. No pleural effusions. The lungs are clear. The heart is borderline enlarged. No evidence for pulmonary edema. Prior cholecystectomy. No pneumoperitoneum. No pneumatosis. No renal or ureteral calculi. Levoscoliosis and degenerative changes within the lumbar spine. Moderate to large amount well-formed stool seen within the colon. No evidence for bowel obstruction. IMPRESSION: 1. No acute process within the chest. 2. No evidence for bowel obstruction. 3. Moderate to large amount of well-formed stool seen within the colon. Electronically signed by: Jose J Early M.D. 04/10/2019 10:01 PM ECG Data Attestation: I personally reviewed and interpreted this ECG as follows: Indication: other (seizure) Rate (beats per minute): 68 Rhythm: sinus rhythm Findings: + other (normal axis, prolonged QTc, low voltage) and + T-wave inversion (V2, V3, V4); no ST elevation Comparison ECG Date: from (04/02/19) Change: no significant change Blood Pressure Blood Pressure Findings: Normal blood pressure Blood Pressure Disposition: did not require urgent referral MDM Narrative Patient with recent changes to her Keppra and Topamax given breakthrough seizures 1 month prior now presenting with recurrent breakthrough seizures. Patient states she has been compliant with her medications, and these are co ntrolled for her as she lives in a snf due to her cognitive impairment. Seizures have been well in a chair patient did not sustain any injury or trauma. Patient's head CT mid-March was unremarkable I do not feel she needed a repeat head CT tonight. No recent fevers or suggestion of infectious etiology based on history and evaluation. Patient hemodynamically stable and afebrile on presenta tion. No other acute lab abnormalities to otherwise explain recurrent seizures. Patient does also take phenytoin, however states she uses this as a mood stabilizer. Case was discussed with neurology as a precaution given current dosing of medications that seem to be at the upper limit already. He did make additional recommendations. Given the patient lives in a snf and is concerned regarding her safety this evening as no one is able to monitor them and she is concerned about a recurrent seizure after tonight's breakthrough seizures, case was discussed with hospitalist for additional evaluation and management. I do not suspect meningitis/encephalitis, subarachnoid hemorrhage, CVA, acute vascular dissection, central venous sinus thrombus, or increased intracranial pressure. Impression & Plan Recurrent seizures, Down syndrome, Constipation Discharge Plan Visit Data *Final* Discharge Date/Time: 04/11/19 02:20 Chief Complaint: Seizure ED Provider: Destinee Brandt Discharge Problem: Recurrent seizures, Down syndrome, Constipation Patient Disposition: Admitted As Inpatient Discharge Instructions Interventions: ED Discharge Assessment Last Done: 04/11/19 02:20 The scribe's documentation has been prepared under my direction and personally reviewed by me in its entirety. I confirm that the note above accurately reflects all work, treatment, procedures, and medical decision making performed by me.
[2019-04-12] MEDS: LEVOTHYROXINE SODIUM 125 MCG TABLET PO SCH (06:23)
[2019-04-12] MEDS: TOPIRAMATE 50 MG TAB PO SCH (09:16)
[2019-04-12] MEDS: FLUTICASONE PROPIONATE NA SPR 16 GM BTL SCH (09:16)
[2019-04-12] MEDS: FOLIC ACID 1 MG TAB PO SCH (09:16)
[2019-04-12] MEDS: DOCUSATE SODIUM 100 MG CAP PO SCH (09:17)
[2019-04-12] MEDS: PHENYTOIN SODIUM ER 100 MG CAP PO SCH (09:17)
[2019-04-12] MEDS: cloNIDine HCl 0.1 MG TAB PO SCH (09:17)
[2019-04-12] MEDS: POTASSIUM CHLORIDE 10 MEQ TABCR PO SCH (09:17)
[2019-04-12] MEDS: PANTOprazole 40 MG TAB PO SCH (09:19)
[2019-04-12] MEDS: OXYBUTYNIN CHLORIDE 5 MG TAB PO SCH (09:19)
[2019-04-12] MEDS: levETIRAcetam 500 MG TAB PO SCH (09:19)
[2019-04-12] MEDS: VENLAFAXINE HCL XR 150 MG CAPXR PO SCH (09:19)
[2019-04-12] MEDS: ATORVASTATIN 20 MG TAB PO SCH (09:19)
[2019-04-12] MEDS: CARVEDILOL 3.125 MG TAB PO SCH (09:20)
[2019-04-12] MEDS: FUROSEMIDE 40 MG TAB PO SCH ×2 (09:20→09:34)
--- NOTE | 2019-04-12 14:50 | Hospitalist Progress Note ---
Date of Service April 12, 2019 Assessment & Plan (1) Recurrent seizures: This is a 58-year-old female who presents with breakthrough seizures: -recently discharged from [facility] for seizures -The patient is on Topamax 250 b.i.d., phenytoin 100 mg HS, Keppra 1750 b.i.d - [facility] Neurologist Dr. Cordero consulted EEG: The EEG shows some mild generalized slowing and some slow wave activity of symmetrical type probably that may actually reflect a eye movements rather than anything else and there are no classic unequivocal seizure discharges on the tracing - recommendation: increase Dilantin to 100mg po in AM and 200mg po at PM reduce Keppra to 1500mg BID continue Topamax 250mg BID follow up with [facility] in 2 weeks - the clinic will be calling for the appointment; their office # is [phone] Down syndrome -High level of mental function, answers questions appropriately and follows directions Sleep apnea -Continue CPAP at bedtime. Hypothyroidism -Continue Synthroid. History of chronic congestive heart failure -Continue home Lasix. continue statin, continue carvedilol BID Hypertension, stable -Continue carvedilol BID, clonidine Anxiety and depression Continue home medications of Venlafaxine 150 mg daily and aripiprazole 15 mg qhs Deep vein thrombosis prophylaxis: SCD Disposition,d/c back to SNF Ff up with PCP in 3-5 days Ff up with [facility] in 1 week Subjective ff up for breakthrough seizures seen resting in bedside chair comfortable smiling states she feels good overall denies headache, dizziness, chest pain, dyspnea, nausea, confusion no other symptoms states she is ready and would like to be discharged today Review of Systems Review of Systems: All systems reviewed & are unremarkable except as noted in HPI & below Physical Exam Physical Exam: General- oriented x 3, not in distress, speaks in sentences with no effort or accessory muscle use Eyes- anicteric Neck- no JVD Lungs- clear breath sounds bilaterally, no rales/wheezes Heart- normal rate, regular rhythm; no murmurs Abdomen- normal bowel sounds, nondistended, soft, nontender Extremities- no pretibial edema, no calf tenderness Neuro- alert, oriented x 3; no gross focal neurologic deficits Skin- warm & dry Results & Data Vital Signs (Past 12 Hours) Vital Signs Temp Pulse Pulse Resp BP BP Pulse Ox 04/12/19 11:51 36.7 C 71 18 116/75 97 04/12/19 09:15 72 127/79 04/12/19 07:29 83 04/12/19 07:12 36.6 C 74 18 95/55 L 97 04/12/19 04:09 37.1 C 80 18 142/85 H 98
--- NOTE | 2019-04-12 18:36 | Discharge Summary ---
Date of Service April 12, 2019 Admission HPI Per Admitting Provider CHIEF COMPLAINT: Breakthrough seizures. HISTORY OF PRESENT ILLNESS: This is a 58-year-old female with past medical history significant for Down syndrome but able to care of herself. She is from [facility], hx of epilepsy, hypothyroidism, depression, anxiety, hypertension, hyperlipidemia, obstructive sleep apnea, GERD, asthma, CHF, presents with episode of seizures. As per patient, she had a seizure and she does not remember what happened and she was brought to the hospital. As per the nursing staff she was sitting in a chair and she had about 3-4 episodes of seizures in the 7-minute duration at which time it was decided to bring her to the hospital. As per nursing staff whenever she gets seizures she cries and she also clinches her hands. The patient has no bowel or bladder incontinence, no biting of the tongue. Currently hemodynamically stable, alert and awake and oriented x3. Denies any headache, no dizziness. No blurred visions. No earache, no runny nose, no sore throat. Appetite is okay. No dysphagia, no chest pain, no shortness of breath, no cough, no fever, no nausea, no vomiting and no abdominal pain. Normal bowel and bladder movements. No blood in the stools, no black stools, no hematuria, no burning micturition, no rash. ER physician spoke with the neurologist admissions supervisor and was recommended to increase the Topamax to 300 mg p.o. at bedtime and give one dose now.Actually it was recommended to send her back and observe but she has Down syndrome and she lives at [facility] it was decided to observe in the hospital. ALLERGIES: BEE VENOM, POTASSIUM, TOMATO AND LETTUCE. PAST MEDICAL HISTORY: As mentioned above. PAST SURGICAL HISTORY: Cataract surgery, status post placement of vagus nerve stimulation which was taken out. FAMILY HISTORY: Unknown family history. SOCIAL HISTORY: Currently lives at [facility], disabled. No smoking history. No alcohol or substance abuse. REVIEW OF SYSTEMS: As per HPI. Rest of review of systems negative. Admission Exam Per Admitting Provider PHYSICAL EXAMINATION: GENERAL: The patient is obese, not in acute distress. VITAL SIGNS: Temperature 36.8, pulse 67, respiratory rate 16, blood pressure 137/92, oxygen 97% room air. HEENT: No pallor, no icterus. Pupils equal, round, and reactive to light. NECK: No JVD, no masses, no carotid bruits. CARDIOVASCULAR: S1, S2 heard. Regular rate and rhythm. No murmur, no gallop. RESPIRATORY SYSTEM: Normal AP diameter. No accessory muscle use. No wheezing, no crackles. ABDOMEN: Soft, bowel sounds present. Nontender. No distention. CENTRAL NERVOUS SYSTEM: Cranial nerves II-XII grossly intact, nonfocal. EXTREMITIES: No edema, no erythema. Principal Diagnosis BREAKTHROUGH SEIZURE Discharge Exam General- oriented x 3, not in distress, speaks in sentences with no effort or accessory muscle use Eyes- anicteric Neck- no JVD Lungs- clear breath sounds bilaterally, no rales/wheezes Heart- normal rate, regular rhythm; no murmurs Abdomen- normal bowel sounds, nondistended, soft, nontender Extremities- no pretibial edema, no calf tenderness Neuro- alert, oriented x 3; no gross focal neurologic deficits Skin- warm & dry Discharge Data Allergies Allergy/AdvReac Type Severity Reaction Status Date / Time bee venom protein (honey bee) Allergy Unknown ANAPHYLAXIS Verified 04/02/19 21:19 potassium Allergy Unknown "LIQUID Verified 04/02/19 21:19 POTASSIUM" - " YOU ARE LOSING ME" tomato Allergy Unknown RASH Verified 04/02/19 21:19 Lettuce Allergy Unknown RASH Uncoded 04/02/19 21:19 Consultations 04/11/19 01:34 ED Decision to Admit Stat 04/11/19 03:11 Consult Case Management - Discharge Planning Routine 04/11/19 08:00 Consult Neurology Routine Hospital Course (1) Recurrent seizures: This is a 58-year-old female who presents with breakthrough seizures: -recently discharged from [facility] for seizures -The patient is on Topamax 250 b.i.d., phenytoin 100 mg HS, Keppra 1750 b.i.d - [facility] Neurologist Dr. Cordero consulted EEG: The EEG shows some mild generalized slowing and some slow wave activity of symmetrical type probably that may actually reflect a eye movements rather than anything else and there are no classic unequivocal seizure discharges on the tracing - recommendation: increase Dilantin to 100mg po in AM and 200mg po at PM reduce Keppra to 1500mg BID continue Topamax 250mg BID follow up with [facility] in 2 weeks - the clinic will be calling for the appointment; their office # is [phone] Down syndrome -High level of mental function, answers questions appropriately and follows directions Sleep apnea -Continue CPAP at bedtime. Hypothyroidism -Continue Synthroid. History of chronic congestive heart failure -Continue home Lasix. continue statin, continue carvedilol BID Hypertension, stable -Continue carvedilol BID, clonidine Anxiety and depression Continue home medications of Venlafaxine 150 mg daily and aripiprazole 15 mg qhs Deep vein thrombosis prophylaxis: SCD Disposition,d/c back to SNF Ff up with PCP in 3-5 days Ff up with [facility] in 1 week Total Time Total Time Spent Total Time Spent (In Minutes): 35 MINUTES Discharge Plan Discharge Items Patient Disposition: Personal [facility] Reason For Visit: SEIZURES Discharge Diagnosis: BREAKTHROUGH SEIZURES Discharge Goals: Diagnostic testing and Therapeutic intervention Activity: As commented below Activity Comment: RESUME ACTIVITY GRADUALLY TOLERATED Lifting: Wait until after follow-up appointment Bathing Comment: NO BATHING IN THE TUB, NO SWIMMING Exercise/Sports: Wait until after follow-up appointment Driving/Machine Use Comment: NO DRIVING Non-emergency contact: Primary Care Provider Call non-emergency contact if: you have any medication questions and you have a fever Follow-up/Referrals: Dorian Cordero MD [Physician] - (FOLLOW UP IN 2 WEEKS, PLEASE CALL THE CLINIC FOR AN APPOINTMENT) Jacque Green [Primary Care Provider] - Diet: Heart Healthy Addtl Provider Instructions: PLEASE SEE MEDICATION LIST BELOW FOR MEDICATION CHANGES. CALL 911 IF WITH RECURRENCE OF SEIZURES. FOLLOW UP WITH PCP IN 3-5 DAYS. FOLLOW UP WITH [facility] IN 2 WEEK. Prescriptions: New phenytoin sodium extended [Dilantin Extended] 100 mg Capsule 200 mg PO QPM 30 Days Qty: 60 RF: 0 phenytoin sodium extended [Dilantin Extended] 100 mg Capsule 100 mg PO DAILY 30 Days Qty: 30 RF: 0 Continued docusate sodium 100 mg Capsule 100 mg PO BID RF: 0 levothyroxine 125 mcg Tablet 125 mcg PO DAILY RF: 0 albuterol sulfate 2.5 mg /3 mL (0.083 %) Solution For Nebulization 2.5 mg INHALATION Q4H PRN (Reason: Shortness Of Breath) RF: 0 Artificial Tears([id number]) 1-0.2-0.2 % Drops 2 drp OPB BID PRN (Reason: Dry Eye(S)) RF: 0 Cepacol Sore Throat (harinder-men) 15-3.6 mg Lozenge 1 bill mucous membrane UD PRN (Reason: Unknown) RF: 0 cyclobenzaprine 10 mg Tablet 10 mg PO Q8H PRN (Reason: Spasms) RF: 0 oxycodone 5 mg Tablet 5 mg PO Q4H PRN (Reason: Pain) RF: 0 calcium carbonate [Tums] 200 mg calcium (500 mg) Tablet,Chewable 200 mg PO QID PRN (Reason: Dyspepsia) RF: 0 Preparation H Maximum Strength 0.25-1 % Cream 1 applic NC BID PRN (Reason: Pain) RF: 0 nystatin [Nystop] 100,000 unit/gram Powder 1 applic TOPICAL BID PRN (Reason: Skin Irritation) RF: 0 venlafaxine 150 mg Tablet Extended Release 24hr 150 mg PO DAILY RF: 0 topiramate 100 mg Tablet 250 mg PO BID RF: 0 ondansetron HCl 4 mg Tablet 4 mg PO Q8H PRN (Reason: Nausea And Vomiting) RF: 0 furosemide [Lasix] 40 mg Tablet 40 mg PO QAM RF: 0 clonidine HCl 0.1 mg Tablet 0.1 mg PO HS RF: 0 clonidine HCl 0.1 mg Tablet 0.05 mg PO QAM RF: 0 acetaminophen [Tylenol] 325 mg Tablet 650 mg PO Q6H MDD 3G PRN (Reason: Fever Or Pain) RF: 0 atorvastatin 20 mg Tablet 20 mg PO QAM RF: 0 clonazepam 0.5 mg Tablet 0.5 mg PO HS PRN (Reason: Anxiety) RF: 0 potassium chloride 10 mEq Tablet Extended Release 10 meq PO BID RF: 0 melatonin 3 mg Tablet 3 mg PO HS RF: 0 carvedilol 3.125 mg Tablet 3.125 mg PO BID RF: 0 cyanocobalamin (vitamin B-12) 1,000 mcg/mL Solution 1,000 mcg IM MO RF: 0 omeprazole 20 mg Capsule,Delayed Release(Dr/Ec) 20 mg PO QAM RF: 0 folic acid 1 mg Tablet 1 mg PO DAILY RF: 0 levetiracetam [Keppra] 750 mg Tablet 1,500 mg PO BID RF: 0 ergocalciferol (vitamin D2) 50,000 unit Capsule 50,000 unit PO WK RF: 0 epinephrine [EpiPen] 0.3 mg/0.3 mL Auto-Injector 0.3 mg IM UD PRN (Reason: Allergic Reaction) RF: 0 albuterol sulfate [Ventolin HFA] 90 mcg/actuation Hfa Aerosol Inhaler 2 puff INHALATION Q6H PRN (Reason: Shortness Of Breath Or Wheezing) RF: 0 oxybutynin chloride 5 mg Tablet 5 mg PO BID RF: 0 hydroxyzine HCl 10 mg Tablet 10 mg PO QID PRN (Reason: Anxiety) RF: 0 fluticasone propionate [Flonase Allergy Relief] 50 mcg/actuation [place],Suspension 1 spray INTRANASAL BID RF: 0 bisacodyl 5 mg Tablet 10 mg PO HS PRN (Reason: Constipation) RF: 0 aripiprazole [Abilify] 15 mg Tablet 15 mg PO HS RF: 0 Discontinued phenytoin sodium extended 100 mg Capsule 100 mg PO HS RF: 0 levetiracetam [Keppra] 250 mg Tablet 250 mg PO BID RF: 0 Stand-Alone Forms: [facility] Discharge Orders: Discharge Order (Routine); Ordered 04/12/19 Ordered By: Carlos River Admission Data Admit Date/Time: 04/11/19 01:31 Attending Provider: Carlos River Admit Provider: Ten Werner Primary Care Provider: Jacque Green Other Providers: Ten Werner ; Dorian Cordero Gary K. Service: Telemetry Medical Other Interventions: Discharge Summary Assessment (RN) Last Done: 04/12/19 16:37
[2019-04-17] MEDS ORDERED: CYANOCOBALAMIN 1000 MCG/ML VIAL IM SCH (09:00)
== END 2019-04-12 19:57 | disposition home or self-care (01) | DRG 101 ==
LOC: ED 18:56 → SUATTDRO 04-11 01:31 → 2N 04-11 01:31

== ENCOUNTER 2020-09-23 13:49 | Inpatient (IN) ==
[2020-09-23] MEDS ORDERED: SODIUM CHLORIDE 0.9% 1000ML 1,000 ML IV SCH (14:00)
--- NOTE | 2020-09-23 14:17 | Emergency Department Note ---
Impression & Plan Acute alteration in mental status, Dilantin toxicity, Acute hyponatremia ED Provider Note NAME: SHARLENE VACA AGE: 60 SEX: F : 1960 ARRIVES VIA: Ambulance INFORMANT: Patient, prehospital personnel ED PROVIDER(S): Cy Abraham DO CHIEF COMPLAINT: Altered mental status HPI: The patient is a 60-year-old female who presented to the emergency department for an evaluation of difficulty with waking up. The patient does hav e a history of seizures but no reported seizures were noted by the personal [facility] staff. The patient lives at a personal [facility]. Apparently this is been ongoing at least through today. There is been no falls. The patient herself does not complain of any headaches nausea or vomiting. There is no reported fever difficulty breathing or cough. The patient does have a history of seizures and there may be some history of a new medication that was added to her medication regimen but we are unsure which medication this is. Apparently the patient has been taking all of her other medications as prescribed. I am unsure if the patient was evaluated by her personal physician today ROS: See above HPI for pertinent positives & negatives. A total of 10 systems reviewed and were otherwise negative. PAST MEDICAL HISTORY: See Below PAST SURGICAL HISTORY: See Below FAMILY HISTORY: See Below SOCIAL HISTORY: See Below HOME MEDICATIONS: See Below ALLERGIES: See Below VITALS: See Below PHYSICAL EXAMINATION: GENERAL: The patient is awake to verbal commands. She falls asleep quickly. EYES: The conjunctivae are clear. The pupils are round and reactive. EARS, NOSE, MOUTH AND THROAT: The nose is without any evidence of any deformity. Mucous members are dry NECK: The neck is nontender and supple. RESPIRATORY: Normal respiratory effort is noted there is no evidence of wheezing rhonchi or rales CARDIOVASCULAR: Regular rate and rhythm noted there no murmurs rubs or gallops normal S1 normal S2. GASTROINTESTINAL: The abdomen is soft. Abdomen is nontender. MUSCULOSKELETAL/EXTREMITIES: There is no evidence of gross deformity full range of motion is noted in the hips and shoulders. SKIN: There is no obvious evidence of any rash. There are no petechiae, pallor or cyanosis noted. NEUROLOGIC: The patient is awake to verbal commands. She appears to answer q uestions appropriately. Strength was symmetric. Patient is able to hold each leg off the bed for greater than 5 seconds. MEDICAL DECISION MAKING: The patient is a 60-year-old female who presented to the emergency department by ambulance for an evaluation. The patient has a history of learning disability. She also has a history of seizure. The patient was started on a new medication. She was sent to the emergency department today because of altered mental status. The patient is normally awake and alert. She was slow to answer questions and appears to be less active than usual. The patient was found to have hyponatremia which would be a new finding for her. She was also found to have Dilantin toxicity. She was treated with IV fluids in the emergency department. She was reevaluated multiple times. I discussed the patient's condition with the [facility] hospitalist group. They have agreed to evaluate the patient in the emergency department for further management and disposition. Triage Nursing notes reviewed. Prior medical records reviewed Vital Signs: reviewed and remarkable for elevated blood pressure. Differential diagnosis: Infection, dehydration, metabolic abnormality, hypo/hyperglycemia, electrolyte disturbance, anemia, hypoxia, cardiac sources, intracerebral event, toxicologic, neurologic, as well as other pathologies. ER treatment provided: See below Diagnostics interpreted by me: ECG: EKG was obtained in the emergency department. My interpretation is normal sinus rhythm at 69 bpm. Low voltage was noted throughout. Lateral and inferior T wave abnormalities were noted. There was slight ST segment depressions noted in the low lateral leads. This was compared to a tracing from April 102018. No significant changes were noted. Cardiac Monitoring: An order was placed for continuous cardiac monitoring. The monitor shows a rate of 82 bpm with sinus rhythm. Laboratory studies: As stated above and show below. Imaging studies: See below Consultation(s): 1550: I discussed this case with Mary wade. Past Med/Surg History Medical History Abnormal ECG Anxiety and depression Asthma Chronic diastolic CHF (congestive heart failure) Down syndrome GERD (gastroesophageal reflux disease) HLD (hyperlipidemia) HTN (hypertension) Hypothyroidism ODELL (obstructive sleep apnea) Seizure disorder Surgical History History of cataract surgery S/P placement of VNS (vagus nerve stimulation) device Family History Other Unknown family medical history Social History (Reviewed 09/23/20 @ 14:16 by SUSAN Gomez Smoking Status: Unknown if ever smoked Hx Alcohol Use: No Hx Substance Use: No Preferred Language: Tunisian Communication Ability: Effective Director Of Managed Care Required: No Beliefs That Will Affect Care: None marital status: Single Current Living Situation: Other Current Living Situation Comment: [facility] current occupational status: unemployed and disabled Feels Safe at Home: Yes Assistive Devices: CPAP Allergies Allergies Allergy/AdvReac Type Severity Reaction Status Date / Time bee venom protein (honey bee) Allergy Unknown ANAPHYLAXIS Verified 08/28/19 12:42 potassium Allergy Unknown "LIQUID Verified 08/28/19 12:42 POTASSIUM" - " YOU ARE LOSING ME" tomato Allergy Unknown RASH Verified 08/28/19 12:42 Lettuce Allergy Unknown RASH Uncoded 08/28/19 12:42 Home Meds Home Medications Medication Instructions Recorded Confirmed acetaminophen [Tylenol] 650 mg PO Q6H PRN MDD 3G 02/10/19 08/28/19 albuterol sulfate [Ventolin HFA] 2 puff INHALATION Q6H PRN 02/10/19 08/28/19 aripiprazole [Abilify] 15 mg PO HS 02/10/19 08/28/19 atorvastatin 20 mg PO QAM 02/10/19 08/28/19 bisacodyl 10 mg PO HS PRN 02/10/19 08/28/19 carvedilol 3.125 mg PO BID 02/10/19 08/28/19 clonazepam 0.5 mg PO HS PRN 02/10/19 08/28/19 clonidine HCl 0.05 mg PO QAM 02/10/19 08/28/19 clonidine HCl 0.1 mg PO HS 02/10/19 08/28/19 cyanocobalamin (vitamin B-12) 1,000 mcg IM MO 02/10/19 08/28/19 epinephrine [EpiPen] 0.3 mg IM UD PRN 02/10/19 08/28/19 ergocalciferol (vitamin D2) 50,000 unit PO WK 02/10/19 08/28/19 fluticasone propionate [Flonase 1 spray INTRANASAL BID 02/10/19 08/28/19 Allergy Relief] folic acid 1 mg PO DAILY 02/10/19 08/28/19 furosemide [Lasix] 40 mg PO QAM 02/10/19 08/28/19 hydroxyzine HCl 10 mg PO QID PRN 02/10/19 08/28/19 levetiracetam [Keppra] 1,500 mg PO BID 02/10/19 08/28/19 melatonin 3 mg PO HS 02/10/19 08/28/19 omeprazole 20 mg PO QAM 02/10/19 08/28/19 oxybutynin chloride 5 mg PO BID 02/10/19 08/28/19 potassium chloride 10 meq PO BID 02/10/19 08/28/19 Artificial Tears([id number]) 2 drp OPB BID PRN 03/20/19 08/28/19 Cepacol Sore Throat (harinder-men) 1 bill MUCOUS MEMBRANE UD PRN 03/20/19 08/28/19 Preparation H Maximum Strength 1 applic NM BID PRN 03/20/19 08/28/19 albuterol sulfate 2.5 mg INHALATION Q4H PRN 03/20/19 08/28/19 calcium carbonate [Tums] 200 mg PO QID PRN 03/20/19 08/28/19 docusate sodium 100 mg PO BID 03/20/19 08/28/19 levothyroxine 125 mcg PO DAILY 03/20/19 08/28/19 nystatin [Nystop] 1 applic TOPICAL BID PRN 03/20/19 08/28/19 ondansetron HCl 4 mg PO Q8H PRN 04/11/19 08/28/19 topiramate 250 mg PO BID 04/11/19 08/28/19 venlafaxine 150 mg PO DAILY 04/11/19 08/28/19 Results & Data (ED) Vital Signs Vital Signs - 24 hr 09/23/20 14:04 09/23/20 14:13 Temperature 36.8 C Temperature Source Oral Pulse Rate 72 Respiratory Rate 23 Respiratory Effort / Characteristics Non-Labored Spontaneous Respiratory Depth Normal Blood Pressure 159/82 H Blood Pressure Mean 107 Pulse Oximetry 95 Oxygen Delivery Method Room Air Room Air Sepsis Recent Fever Within 48 Hours No Sepsis New/Unexplained Change in Mental Status N/A Sepsis Action Taken by Nursing No Action Required Home Medications Current Medication List: was personally reviewed by me Laboratory Data Attestation: I reviewed the patient's lab results. Result diagrams: 09/23/20 14:15 09/23/20 14:15 Lab Results 09/23/20 09/23/20 09/23/20 Range/Units 14:15 14:15 14:15 WBC 2.83 L (4.8-10.8) K/uL RBC 3.92 L (4.2-5.4) M/uL Hgb 12.4 (12.0-16.0) g/dL Hct 36.4 L (37-47) % MCV 92.9 (80-100) fL MCH 31.6 (25-34) pg MCHC 34.1 (32-36) g/dL RDW Std Deviation 41.0 (36.4-46.3) fL RDW Coeff of Clark 12.2 (11.5-14.5) % Plt Count 144 (130-400) K/uL MPV 8.2 (7.4-10.4) fL Immature Gran % (Auto) 0.0 % Neut % (Auto) 45.2 % Lymph % (Auto) 35.0 % [place] % (Auto) 14.8 % Eos % (Auto) 4.6 % Baso % (Auto) 0.4 % Neut # (Auto) 1.28 L (1.4-6.5) K/uL Lymph # (Auto) 0.99 L (1.2-3.4) K/uL [place] # (Auto) 0.42 (0.11-0.59) K/uL Eos # (Auto) 0.13 (0-0.5) K/uL Baso # (Auto) 0.01 (0-0.2) K/uL Immature Gran # (Auto) 0.00 (0.00-0.02) K/uL PT 11.0 (9.0-12.0) Seconds INR 1.0 (0.9-1.1) APTT 31.9 H (21.0-31.0) Seconds PTT Ratio 1.1 Sodium 126 L (136-145) mmol/L Potassium 3.5 (3.5-5.1) mmol/L Chloride 93 L (98-107) mmol/L Carbon Dioxide 25 (21-32) mmol/L Anion Gap 8.0 (3-11) BUN 8 (7-18) mg/dl Creatinine 0.71 (0.6-1.2) mg/dl Est Cr Clr Drug Dosing Not Reportable Est GFR ( Amer) 107.3 Est GFR (Non-Af Amer) 92.6 BUN/Creatinine Ratio 11.1 (10-20) Glucose 89 (70-99) mg/dl Calcium 8.4 L (8.5-10.1) mg/dl Magnesium 2.1 (1.8-2.4) mg/dl Total Bilirubin 0.3 (0.2-1) mg/dl AST 15 (15-37) U/L ALT 23 (12-78) U/L Alkaline Phosphatase 133 H (45-117) U/L Total Creatine Kinase 56 (26-192) U/L Troponin I < 0.015 (0-0.045) ng/ml Total Protein 7.1 (6.4-8.2) gm/dl Albumin 3.8 (3.4-5.0) gm/dl Globulin 3.3 (2.5-4.0) gm/dl Albumin/Globulin Ratio 1.2 (0.9-2) TSH 3.660 (0.300-4.500) uIu/ml Phenytoin (10-20) mcg/ml // Range/Units 14:15 WBC (4.8-10.8) K/uL RBC (4.2-5.4) M/uL Hgb (12.0-16.0) g/dL Hct (37-47) % MCV (80-100) fL MCH (25-34) pg MCHC (32-36) g/dL RDW Std Deviation (36.4-46.3) fL RDW Coeff of Clark (11.5-14.5) % Plt Count (130-400) K/uL MPV (7.4-10.4) fL Immature Gran % (Auto) % Neut % (Auto) % Lymph % (Auto) % [place] % (Auto) % Eos % (Auto) % Baso % (Auto) % Neut # (Auto) (1.4-6.5) K/uL Lymph # (Auto) (1.2-3.4) K/uL [place] # (Auto) (0.11-0.59) K/uL Eos # (Auto) (0-0.5) K/uL Baso # (Auto) (0-0.2) K/uL Immature Gran # (Auto) (0.00-0.02) K/uL PT (9.0-12.0) Seconds INR (0.9-1.1) APTT (21.0-31.0) Seconds PTT Ratio Sodium (136-145) mmol/L Potassium (3.5-5.1) mmol/L Chloride (98-107) mmol/L Carbon Dioxide (21-32) mmol/L Anion Gap (3-11) BUN (7-18) mg/dl Creatinine (0.6-1.2) mg/dl Est Cr Clr Drug Dosing Est GFR ( Amer) Est GFR (Non-Af Amer) BUN/Creatinine Ratio (10-20) Glucose (70-99) mg/dl Calcium (8.5-10.1) mg/dl Magnesium (1.8-2.4) mg/dl Total Bilirubin (0.2-1) mg/dl AST (15-37) U/L ALT (12-78) U/L Alkaline Phosphatase (45-117) U/L Total Creatine Kinase (26-192) U/L Troponin I (0-0.045) ng/ml Total Protein (6.4-8.2) gm/dl Albumin (3.4-5.0) gm/dl Globulin (2.5-4.0) gm/dl Albumin/Globulin Ratio (0.9-2) TSH (0.300-4.500) uIu/ml Phenytoin 30.3 H* (10-20) mcg/ml Administered Medications Discontinued Medications Sodium Chloride (Nss 1000ml) 1,000 mls @ 999 mls/hr IV .Q1H1M KRISTA Stop: 09/23/20 15:00 Last Infusion: 09/23/20 15:42 Dose: 0 mls/hr Documented by: [id number] Admin: 09/23/20 14:35 Dose: 999 mls/hr Documented by: [id number] Imaging Data Radiologist's Impression: Patient: SHARLENE VACA Admit Date: 09/23/20 MR#: [id number] Address1: [address] [place] [address] Acct ID:[id number] Address2: [facility] Date: 1960 [facility] Zip: [place] [address] Age: 60 Location: ED Sex: F Room/Bed: Att Phy: Diagnosis: LETHARGIC Ney[facility] Service Date: 09/23/20 Fam Phy: Interpreting Phy: Alberto Askew MD Admit Phy: Ordering Phy: Cy Abraham DO cc: ~ CT SCAN OF THE BRAIN WITHOUT IV CONTRAST CLINICAL HISTORY: Generalized weakness. Change in mental status. COMPARISON STUDY: CT of the brain dated 03/20/2019. TECHNIQUE: Unenhanced axial CT scan of the brain is performed from the vertex to the skull base. A dose lowering technique was utilized adhering to the principles of ALARA. CT DOSE: 638.56 mGycm FINDINGS: Brain parenchyma: The brain parenchyma is normal in appearance. There is no hemorrhage, mass effect, or evidence of acute territorial ischemia by CT criteria. Woodall-white matter differentiation is preserved. No extra-axial fluid collection is seen. Ventricles, sulci, cisterns: Normal in configuration. Intracranial vasculature: The visualized intracranial vasculature at the skull base is normal in appearance. Calvarium: Unremarkable. Sinuses and mastoids: The visualized paranasal sinuses are clear. The mastoid ai r cells are well pneumatized. Orbits: The bony orbits are grossly intact. There is evidence of previous left ocular lens surgery. IMPRESSION: There is no hemorrhage, mass effect, or evidence of acute territorial ischemia by CT criteria. ACT 112: Negative or not required by law. Electronically signed by: Alberto Askew M.D. 09/23/2020 3:28 PM Dictated: 09/23/20 1525 Transcribed: 09/23/20 1525 Patient: SHARLENE VACA Admit Date: 09/23/20 MR#: [id number] Address1: [address] [place] [address] Acct ID:[id number] Address2: [facility] Date: 1960 [facility] Zip: [place] [address] Age: 60 Location: ED Sex: F Room/Bed: Att Phy: Diagnosis: LETHARGIC Neyda [facility] Service Date: 09/23/20 [facility] Phy: Interpreting Phy: Jose J Early MD Admit Phy: Ordering Phy: Cy Abraham, cc: ~ XR chest 1V portable HISTORY: weakness COMPARISON: Chest 04/10/2019. FINDINGS: There are low lung volumes. No pneumothorax. Mild elevation of the right hemidiaphragm, unchanged. The heart is enlarged. No new focal lung consolidations to suggest pneumonia. There is mild central pulmonary vascular congestion without overt edema. No pleural effusions. IMPRESSION: Cardiomegaly and mild pulmonary vascular congestion which has progressed. ACT 112: Negative or not required by law. Electronically signed by: Jose J Early M.D. 09/23/2020 2:38 PM Dictated: 09/23/20 1437 Transcribed: 09/23/20 143 Blood Pressure Blood Pressure Findings: Elevated blood pressure Blood Pressure Disposition: further management by hospitalist Discharge Plan Visit Data Chief Complaint: Lethargic ED Provider: Cy Abraham Discharge Problem: Acute alteration in mental status, Dilantin toxicity, Acute hyponatremia Patient Disposition: Being Evaluated by Hospitalist Condition: Good Forms Stand Alone Forms: [facility] [employer] [place] Prescriptions Prescriptions: No Action docusate sodium 100 mg Capsule 100 mg PO BID RF: 0 levothyroxine 125 mcg Tablet 125 mcg PO DAILY RF: 0 albuterol sulfate 2.5 mg /3 mL (0.083 %) Solution For Nebulization 2.5 mg INHALATION Q4H PRN (Reason: Shortness Of Breath) RF: 0 Artificial Tears([id number]) 1-0.2-0.2 % Drops 2 drp OPB BID PRN (Reason: Dry Eye(S)) RF: 0 Cepacol Sore Throat (harinder-men) 15-3.6 mg Lozenge 1 bill mucous membrane UD PRN (Reason: Unknown) RF: 0 calcium carbonate [Tums] 200 mg calcium (500 mg) Tablet,Chewable 200 mg PO QID PRN (Reason: Dyspepsia) RF: 0 Preparation H Maximum Strength 0.25-1 % Cream 1 applic NM BID PRN (Reason: Pain) RF: 0 nystatin [Nystop] 100,000 unit/gram Powder 1 applic TOPICAL BID PRN (Reason: Skin Irritation) RF: 0 venlafaxine 150 mg Tablet Extended Release 24hr 150 mg PO DAILY RF: 0 topiramate 100 mg Tablet 250 mg PO BID RF: 0 ondansetron HCl 4 mg Tablet 4 mg PO Q8H PRN (Reason: Nausea And Vomiting) RF: 0 furosemide [Lasix] 40 mg Tablet 40 mg PO QAM RF: 0 clonidine HCl 0.1 mg Tablet 0.1 mg PO HS RF: 0 clonidine HCl 0.1 mg Tablet 0.05 mg PO QAM RF: 0 acetaminophen [Tylenol] 325 mg Tablet 650 mg PO Q6H MDD 3G PRN (Reason: Fever Or Pain) RF: 0 atorvastatin 20 mg Tablet 20 mg PO QAM RF: 0 clonazepam 0.5 mg Tablet 0.5 mg PO HS PRN (Reason: Anxiety) RF: 0 potassium chloride 10 mEq Tablet Extended Release 10 meq PO BID RF: 0 melatonin 3 mg Tablet 3 mg PO HS RF: 0 carvedilol 3.125 mg Tablet 3.125 mg PO BID RF: 0 cyanocobalamin (vitamin B-12) 1,000 mcg/mL Solution 1,000 mcg IM MO RF: 0 omeprazole 20 mg Capsule,Delayed Release(Dr/Ec) 20 mg PO QAM RF: 0 folic acid 1 mg Tablet 1 mg PO DAILY RF: 0 levetiracetam [Keppra] 750 mg Tablet 1,500 mg PO BID RF: 0 ergocalciferol (vitamin D2) 50,000 unit Capsule 50,000 unit PO WK RF: 0 epinephrine [EpiPen] 0.3 mg/0.3 mL Auto-Injector 0.3 mg IM UD PRN (Reason: Allergic Reaction) RF: 0 albuterol sulfate [Ventolin HFA] 90 mcg/actuation Hfa Aerosol Inhaler 2 puff INHALATION Q6H PRN (Reason: Shortness Of Breath Or Wheezing) RF: 0 oxybutynin chloride 5 mg Tablet 5 mg PO BID RF: 0 hydroxyzine HCl 10 mg Tablet 10 mg PO QID PRN (Reason: Anxiety) RF: 0 fluticasone propionate [Flonase Allergy Relief] 50 mcg/actuation [place],Suspension 1 spray INTRANASAL BID RF: 0 bisacodyl 5 mg Tablet 10 mg PO HS PRN (Reason: Constipation) RF: 0 aripiprazole [Abilify] 15 mg Tablet 15 mg PO HS RF: 0 Referrals Referrals: Jacque Green [Primary Care Provider] -
[2020-09-23 14:39] LABS: Basophils # (auto) 0.01 K/uL (0-0.2); Basophils % (auto) 0.4 %; Eosinophils # (auto) 0.13 K/uL (0-0.5); Eosinophils % (auto) 4.6 %; Hematocrit (blood only) 36.4 % (37-47); Hemoglobin 12.4 g/dL (12.0-16.0); Lymphocytes # (auto) 0.99 K/uL (1.2-3.4); Mean Corpuscular Hemoglobin 31.6 pg (25-34); Mean Corpuscular Hgb Conc 34.1 g/dL (32-36); Mean Corpuscular Volume 92.9 fL (80-100); Mean Platelet Volume 8.2 fL (7.4-10.4); Monocytes # (auto) 0.42 K/uL (0.11-0.59); Monocytes % (auto) 14.8 %; Neutrophils # (auto) 1.28 K/uL (1.4-6.5); Neutrophils % (auto) 45.2 %; Platelet Count 144 K/uL (130-400); RDW Coefficient of Variation 12.2 % (11.5-14.5); Red Blood Count 3.92 M/uL (4.2-5.4); White Blood Count 2.83 K/uL (4.8-10.8)
--- NOTE | 2020-09-23 14:39 | XRay Report ---
XR chest 1V portable HISTORY: weakness COMPARISON: Chest 04/10/2019. FINDINGS: There are low lung volumes. No pneumothorax. Mild elevation of the right hemidiaphragm, unc hanged. The heart is enlarged. No new focal lung consolidations to suggest pneumonia. There is mild c entral pulmonary vascular congestion without overt edema. No pleural effusions. IMPRESSION: Cardiomegaly and mild pulmonary vascular congestion which has progressed. ACT 112: Negative or not required by law. Electronically signed by: Jose J Early M.D. 09/23/2020 2:38 PM
[2020-09-23 14:53] LABS: Partial Thromboplastin Ratio 1.1; Partial Thromboplastin Time 31.9 Seconds (21.0-31.0)
[2020-09-23 14:54] LABS: Alanine Aminotransferase 23 U/L (12-78); Albumin Level 3.8 gm/dl (3.4-5.0); Aspartate Aminotransferase 15 U/L (15-37); BUN Creatinine Ratio 11.1 (10-20); Blood Urea Nitrogen 8 mg/dl (7-18); Calcium 8.4 mg/dl (8.5-10.1); Carbon Dioxide 25 mmol/L (21-32); Chloride 93 mmol/L (98-107); Est GFR (African American) 107.3; Est GFR (Non-African American) 92.6; Glucose 89 mg/dl (70-99); Magnesium 2.1 mg/dl (1.8-2.4); Potassium 3.5 mmol/L (3.5-5.1); Sodium 126 mmol/L (136-145)
[2020-09-23 15:04] LABS: Albumin Globulin Ratio 1.2 (0.9-2); Alkaline Phosphatase 133 U/L (45-117); Bilirubin,Total 0.3 mg/dl (0.2-1); Creatine Kinase 56 U/L (26-192); Globulin 3.3 gm/dl (2.5-4.0); Total Protein 7.1 gm/dl (6.4-8.2); Troponin I < 0.015 ng/ml (0-0.045)
--- NOTE | 2020-09-23 15:29 | CT Scan Report ---
CT SCAN OF THE BRAIN WITHOUT IV CONTRAST CLINICAL HISTORY: Generalized weakness. Change in mental status. COMPARISON STUDY: CT of the brain dated 03/20/2019. TECHNIQUE: Unenhanced axial CT scan of the brain is performed from the vertex to the skull base. A d ose lowering technique was utilized adhering to the principles of ALARA. CT DOSE: 638.56 mGycm FINDINGS: Brain parenchyma: The brain parenchyma is normal in appearance. There is no hemorrhage, mass effect, or evidence of acute territorial ischemia by CT criteria. Woodall-white matter differentiation is preser luanne. No extra-axial fluid collection is seen. Ventricles, sulci, cisterns: Normal in configuration. Intracranial vasculature: The visualized intracranial vasculature at the skull base is normal in appe arance. Calvarium: Unremarkable. Sinuses and mastoids: The visualized paranasal sinuses are clear. The mastoid air cells are well pneu matized. Orbits: The bony orbits are grossly intact. There is evidence of previous left ocular lens surgery. IMPRESSION: There is no hemorrhage, mass effect, or evidence of acute territorial ischemia by CT laney ly. ACT 112: Negative or not required by law. Electronically signed by: Alberto Askew M.D. 09/23/2020 3:28 PM
[2020-09-23 16:00] LABS: Appearance Urine Clear (Clear); Bacteria Urine Automated Negative (Negative); Bilirubin Urine Negative (Negative); Blood Urine Trace (Negative); Cast Urine Automated 0 /lpf (0-5); Color Urine Yellow; Glucose Urine UA Negative (Negative); Ketones Urine Negative (Negative); Leukocyte Esterase Urine Negative (Negative); Nitrite Urine Negative (Negative); Protein Urine Negative (Negative); Urobilinogen Urine Negative (Negative); WBC Urine Automated 0 /hpf (0-5); pH Urine 7.5 (4.5-7.5)
[2020-09-23 16:22] LABS: Amphetamines+Metham, Urine Neg (Neg); Barbiturates, Urine Neg (Neg); Benzodiazepine, Urine Neg (Neg); Cocaine, Urine Neg (Neg); MDMA (Ecstacy), Urine Neg (Neg); Methadone, Urine Neg (Neg); Opiate, Urine Neg (Neg); Phencyclidine, Urine Neg (Neg)
--- NOTE | 2020-09-23 17:55 | History & Physical Report ---
Date of Service September 23, 2020 Assessment & Plan (1) Metabolic encephalopathy: -Admit to telemetry -Patient presenting from [facility] for evaluation of lethargy and altered mental status -Likely multifactorial to Dilantin toxicity and hyponatremia which we discussed below -Hold all sedating medications for now as patient is on multiple psychiatric meds -Abilify, clonazepam, oxcarbazepine, venlafaxine -Psych consult for medication management (2) Dilantin toxicity: -Dilantin level 30.3 -Hold Dilantin, check daily level -Neurology consult, case discussed with Dr. Rico (3) Hyponatremia: -Na+ 126 -May be medication induced due to recent increase in oxcarbazepine -Received 1 L NSS in ED -Holding oxcarbazepine and venlafaxine -Serum Osmo 263, urine Osmo 195 -Discussed with Dr. Celaya, hold on further IVF for now and place patient on 1200 cc fluid restriction -Serial sodium levels (4) Seizure disorder: -Holding Dilantin as above -Continue Keppra and Topamax and check levels (5) Chronic diastolic CHF (congestive heart failure): -Appears euvolemic -Holding furosemide due to hyponatremia (6) HTN (hypertension): -BP controlled, continue carvedilol and clonidine (7) Hypothyroidism: -TSH 3.6, continue levothyroxine (8) DVT prophylaxis: -SCDs History of Present Illness Chief Complaint: Altered mental status Primary Care Provider: [facility] 60-year-old female with PMH chronic diastolic CHF, seizure disorder, mood disorder, HTN, hypothyroidism, and other problems listed below who presents the ED for evaluation of altered mental status. History is limited from the patient. History is obtained from the staff at [facility]. Patient was having mood swings and anger outburst last week. Patient psychiatrist, Dr. Jett, increase patient's oxcarbazepine from 300 mg twice daily to 600 mg twice daily. Yesterday, the staff reports that patient said she was not feeling well however would not specify her symptoms. Today at lunch, patient was noted to be very lethargic and falling forward in her chair. This is very unusual for her as she usually is ambulatory and very talkative. No seizure-like activity was reported. No loss of consciousness. Patient was referred to the ED for further evaluation. In the ED, labs show Na+ 126, Dilantin level 30.3. Patient received 1 L NSS. Allergies Allergy/AdvReac Type Severity Reaction Status Date / Time bee venom protein (honey bee) Allergy Unknown ANAPHYLAXIS Verified 09/23/20 17:27 potassium Allergy Unknown "LIQUID Verified 09/23/20 17:27 POTASSIUM" - " YOU ARE LOSING ME" tomato Allergy Unknown RASH Verified 09/23/20 17:27 Lettuce Allergy Unknown RASH Uncoded 09/23/20 17:27 Home Medications Medication Instructions Recorded Confirmed Type acetaminophen [Tylenol] 650 mg PO DAILYBL MDD 3G 02/10/19 09/23/20 History atorvastatin 20 mg PO QAM 02/10/19 09/23/20 History carvedilol 3.125 mg PO BID 02/10/19 09/23/20 History clonazepam 0.5 mg PO BID 02/10/19 09/23/20 History clonidine HCl 0.1 mg PO HS 02/10/19 09/23/20 History cyanocobalamin (vitamin B-12) 1,000 mcg IM MO 02/10/19 09/23/20 History epinephrine [EpiPen] 0.3 mg IM UD PRN 02/10/19 09/23/20 History ergocalciferol (vitamin D2) 50,000 unit PO WK 02/10/19 09/23/20 History fluticasone propionate [Flonase 1 spray INTRANASAL BID 02/10/19 09/23/20 History Allergy Relief] folic acid 1 mg PO DAILY 02/10/19 09/23/20 History furosemide [Lasix] 40 mg PO QAM 02/10/19 09/23/20 History melatonin 3 mg PO HS 02/10/19 09/23/20 History omeprazole 20 mg PO QAM 02/10/19 09/23/20 History oxybutynin chloride 5 mg PO BID 02/10/19 09/23/20 History potassium chloride 10 meq PO BID 02/10/19 09/23/20 History nystatin [Nystop] 1 applic TOPICAL BID PRN 03/20/19 09/23/20 History ondansetron HCl 4 mg PO Q8H PRN 04/11/19 09/23/20 History venlafaxine 150 mg PO DAILY 04/11/19 09/23/20 History aripiprazole 20 mg PO DAILY 09/23/20 09/23/20 History clonazepam 1 mg PO HS 09/23/20 09/23/20 History clonidine HCl 0.05 mg PO DAILY 09/23/20 09/23/20 History docusate sodium [Colace] 100 mg PO BID 09/23/20 09/23/20 History ferrous sulfate 325 mg PO BID 09/23/20 09/23/20 History levetiracetam 1,500 mg PO DAILY 09/23/20 09/23/20 History levetiracetam 2,000 mg PO HS 09/23/20 09/23/20 History levothyroxine 150 mcg PO DAILY 09/23/20 09/23/20 History lorazepam 0.25 mg PO Q8H PRN 09/23/20 09/23/20 History oxcarbazepine 600 mg PO BID 09/23/20 09/23/20 History phenytoin sodium extended 100 mg PO DAILY 09/23/20 09/23/20 History phenytoin sodium extended 200 mg PO HS 09/23/20 09/23/20 History topiramate 50 mg PO DAILY 09/23/20 09/23/20 History topiramate 100 mg PO HS 09/23/20 09/23/20 History topiramate 200 mg PO BID 09/23/20 09/23/20 History Past Med/Surg History Medical History Abnormal ECG Anxiety and depression Asthma Chronic diastolic CHF (congestive heart failure) Down syndrome GERD (gastroesophageal reflux disease) HLD (hyperlipidemia) HTN (hypertension) Hypothyroidism ODELL (obstructive sleep apnea) Seizure disorder Surgical History History of cataract surgery S/P placement of VNS (vagus nerve stimulation) device Family History Other Unknown family medical history Social History Smoking Status: Unknown if ever smoked Hx Alcohol Use: No Hx Substance Use: No Preferred Language: [place] Communication Ability: Effective 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 marital status: Single Current Living Situation: Personal Care Facility Current Living Situation Comment: [facility] current occupational status: unemployed and disabled Other Information That Helps Us Care for You: No Feels Safe at Home: Yes Safety Concerns: Feels Safe At This Time Assistive Devices: None Review of Systems Review of Systems: Unobtainable due to cognitive status Physical Exam Constitutional: WD/WN, vitals as above Eyes: PERRL, conjunctivae normal, anicteric sclerae EOM intact bilaterally Mild upward deviation of left eye noted ENMT: external ear and nose normal, oropharynx normal Respiratory: normal respiratory effort, lungs clear to auscultation Cardiovascular: Rate/Rhythm: regular rate and regular rhythm Vessels: normal peripheral pulses Extremities: no edema Gastrointestinal (Abdomen): normal bowel sounds, soft, nontender, no hepatosplenomegaly Musculoskeletal: no cyanosis or clubbing, extremities motor strength 5/5 Skin: no rashes, warm and dry Neurologic: PERRL, EOMI, accommodation nl, no face palsy, no dysarthria Psychiatric: Orientation: alert (Slow to respond at times), oriented to person and oriented to place; + not oriented to time Affect: euthymic affect Insight: + limited insight Results & Data Results & Data ([facility]) Vital Signs (Past 12 Hours) Vital Signs Temp Pulse Resp BP Pulse Ox 09/23/20 17:30 67 14 98 09/23/20 17:20 72 18 97 09/23/20 17:10 67 17 97 09/23/20 17:00 69 15 98 09/23/20 16:50 69 20 97 09/23/20 16:40 68 24 97 09/23/20 16:30 84 22 97 09/23/20 16:20 66 29 H 96 09/23/20 16:10 66 16 96 09/23/20 16:00 68 17 97 09/23/20 15:50 68 13 98 09/23/20 15:40 69 19 94 09/23/20 15:30 69 15 96 09/23/20 15:29 68 15 94 09/23/20 15:00 69 22 153/91 H 99 09/23/20 14:50 68 18 97 09/23/20 14:40 69 21 96 09/23/20 14:30 68 17 150/89 H 97 09/23/20 14:20 71 25 H 97 09/23/20 14:10 70 19 96 09/23/20 14:04 36.8 C 72 23 159/82 H 95 09/23/20 14:03 70 23 95 09/23/20 14:00 72 17 159/82 H 96 Laboratory Results Short CBC 09/23/20 Range/Units 14:15 WBC 2.83 L (4.8-10.8) K/uL Hgb 12.4 (12.0-16.0) g/dL Hct 36.4 L (37-47) % Plt Count 144 (130-400) K/uL BMP 09/23/20 14:15 Sodium 126 L Potassium 3.5 Chloride 93 L Carbon Dioxide 25 BUN 8 Creatinine 0.71 Glucose 89 Calcium 8.4 L Cardiac Enzymes 09/23/20 Range/Units 14:15 Total Creatine Kinase 56 (26-192) U/L Troponin I < 0.015 (0-0.045) ng/ml Liver Function 09/23/20 Range/Units 14:15 Total Bilirubin 0.3 (0.2-1) mg/dl AST 15 (15-37) U/L ALT 23 (12-78) U/L Alkaline Phosphatase 133 H (45-117) U/L Albumin 3.8 (3.4-5.0) gm/dl Urine 09/23/20 Range/Units 15:10 Urine Color Yellow Urine Appearance Clear (Clear) Urine pH 7.5 (4.5-7.5) Ur Specific [place] 1.010 (1.000-1.030) Urine Protein Negative (Negative) Urine Glucose (UA) Negative (Negative) Diagnostic Findings CXR IMPRESSION: Cardiomegaly and mild pulmonary vascular congestion which has progressed. HEAD CT IMPRESSION: There is no hemorrhage, mass effect, or evidence of acute territorial ischemia by CT criteria. Code Status & VTE Plan VTE Prophylaxis Plan VTE Prophylaxis will be ordered: Yes Supervising Physician Co-Signing Physician Notes Attending addendum: Patient seen and examined care coordinated with Mary GAITAN This is a 60-year-old female with complex past medical history of seizure disorder, anxiety/depression with behavioral disturbance, chronic diastolic CHF Sent to ER for lethargy altered mental status, Found to have elevated level of Dilantin Patient will be admitted to telemetry floor, Dilantin will be discontinued, patient is on multiple psychiatric medication, We will hold off medications which sedative effects, psychiatry consulted for adjustment of medications Vitals as per [facility] Physical exam: As per Mary GAITAN Metabolic encephalopathy: Secondary to Dilantin toxicity, hold Dilantin level, neurology consulted Patient is given IV fluids, follow daily Dilantin level Please refer to further documentation by Mary GAITAN for discussion of other medical issues Brisa Colmenares MD (1) Dilantin toxicity Encounter type: initial encounter Injury intent: undetermined intent Qualified Code(s): T42.0X4A - Poisoning by hydantoin derivatives, undetermined, initial encounter
[2020-09-23] MEDS ORDERED: ONDANSETRON INJ 2 MG/ML 2 ML VIAL IV STA (19:22)
[2020-09-23] MEDS ORDERED: ONDANSETRON INJ 2 MG/ML 2 ML VIAL IV PRN (19:51)
[2020-09-23] MEDS ORDERED: ACETAMINOPHEN 325 MG TAB PO PRN (19:51)
[2020-09-23] MEDS ORDERED: LOPERAMIDE HCL 2 MG CAP PO PRN (19:51)
[2020-09-23 19:52] LABS: BUN Creatinine Ratio 10.6 (10-20); Calcium 8.3 mg/dl (8.5-10.1); Creatinine Clr Calc Pharmacy 79.6 ml/min; Est GFR (African American) 109.7; Est GFR (Non-African American) 94.6; Potassium 3.4 mmol/L (3.5-5.1)
[2020-09-23] MEDS ORDERED: TOPIRAMATE 100 MG TAB PO SCH ×2 (21:00)
[2020-09-23] MEDS: carvediloL 3.125 MG TAB PO SCH (21:16)
[2020-09-23] MEDS: levETIRAcetam 500 MG TAB PO SCH (21:16)
[2020-09-23] MEDS: OXYBUTYNIN CHLORIDE 5 MG TAB PO SCH (21:16)
[2020-09-23] MEDS: cloNIDine HCL 0.1 MG TAB PO SCH (21:16)
[2020-09-23] MEDS: FERROUS SULFATE 325 MG TAB PO SCH (21:16)
[2020-09-23] MEDS: DOCUSATE SODIUM 100 MG CAP PO SCH (21:17)
[2020-09-23] MEDS: TOPIRAMATE 100 MG TAB PO SCH (21:17)
[2020-09-23 23:41] LABS: Calcium 8.2 mg/dl (8.5-10.1); Creatinine Clr Calc Pharmacy 82.1 ml/min; Est GFR (African American) 112.4; Potassium 3.3 mmol/L (3.5-5.1)
[2020-09-24] MEDS: LEVOTHYROXINE SODIUM 150 MCG TABLET PO SCH (06:07)
[2020-09-24] MEDS ORDERED: ACETAMINOPHEN 325 MG TAB PO PRN (07:19)
[2020-09-24] MEDS ORDERED: POTASSIUM CHLORIDE CRTAB 20 MEQ TABCR PO ONE (07:30)
[2020-09-24] MEDS ORDERED: POTASSIUM ACETATE 10 MEQ in 0.9 % SODIUM CHLORIDE 100 ML IV ONE (07:45)
[2020-09-24] MEDS: TOPIRAMATE 100 MG TAB PO SCH ×2 (07:54→18:47)
[2020-09-24] MEDS: TOPIRAMATE 50 MG TAB PO SCH (07:54)
[2020-09-24] MEDS: DOCUSATE SODIUM 100 MG CAP PO SCH ×2 (07:55→20:51)
[2020-09-24] MEDS: ATORVASTATIN 20 MG TAB PO SCH (07:55)
[2020-09-24 07:56] LABS: Hematocrit (blood only) 33.9 % (37-47); Hemoglobin 11.3 g/dL (12.0-16.0); Mean Corpuscular Hemoglobin 31.8 pg (25-34); Mean Corpuscular Hgb Conc 33.3 g/dL (32-36); Mean Corpuscular Volume 95.5 fL (80-100); Mean Platelet Volume 8.7 fL (7.4-10.4); Platelet Count 139 K/uL (130-400); RDW Coefficient of Variation 12.3 % (11.5-14.5); RDW Standard Deviation 43.1 fL (36.4-46.3); Red Blood Count 3.55 M/uL (4.2-5.4); White Blood Count 2.96 K/uL (4.8-10.8)
[2020-09-24] MEDS: levETIRAcetam 500 MG TAB PO SCH ×2 (07:56→20:51)
[2020-09-24] MEDS: FOLIC ACID 1 MG TAB PO SCH (07:56)
[2020-09-24] MEDS: PANTOprazole 40 MG TAB PO SCH (07:57)
[2020-09-24] MEDS: cloNIDine HCL 0.1 MG TAB PO SCH ×2 (07:57→20:52)
[2020-09-24] MEDS: OXYBUTYNIN CHLORIDE 5 MG TAB PO SCH ×2 (08:00→20:51)
[2020-09-24] MEDS: FERROUS SULFATE 325 MG TAB PO SCH ×2 (08:01→20:51)
[2020-09-24] MEDS: carvediloL 3.125 MG TAB PO SCH ×2 (08:01→20:51)
--- NOTE | 2020-09-24 08:01 | Hospitalist Progress Note ---
Date of Service September 24, 2020 Assessment & Plan (1) Metabolic encephalopathy: possibly from polypharmacy versus medication side effects Down Syndrome History of Seizure Disorder, History of Anxiety and Depression -patient from [facility], has Down syndrome as documented in previous hospital notes -as per ED notes on 09/23/2020 "The patient is a 60-year-old female who presented to the emergency department for an evaluation of difficulty with waking up. The patient does have a history of seizures but no reported seizures were noted by the personal assisted staff. The patient lives at a personal assisted. Apparently this is been ongoing at least through today. There is been no falls. The patient herself does not complain of any headaches nausea or vomiting. There is no reported fever difficulty breathing or cough. The patient does have a history of seizures and there may be some history of a new medication that was added to her medication regimen but we are unsure which medication this is. Apparently the patient has been taking all of her other medications as prescribed" -Hospitalist team admitted the patient from the ED for further evaluation of lethargy and altered mental status. The concern of admitting hospitalist team that the causes of the changes in mental status may have been multifactorial to Dilantin toxicity and hyponatremia. Hold all sedating medications for now as patient is on multiple psychiatric medications for history of anxiety and depression (abilify, clonazepam, oxcarbazepine, venlafaxine) 09/24/2020 AM hospitalist exam: -Patient seen and examined while she was eating breakfast on her own power. Blas torres is alert and cooperative on exam but she is a poor historian and it is difficult to assess her memory. She does not recall the name of the facility that she lives in. She does not recall how many years that she lived there for. When asked what were the symptoms that led her to be admitted to the hospital starting on 09/23/2020, she responds it was because she was "leaning to the side." When hospitalist discussed with her about the current hospital plans to have neurology physicians evaluate her, she responds that "I take too many medications." This is a fairly accurate statement as she has been on multiple anti-epileptics and mood stabilizers. On review of systems, patient denies other symptoms to the best of ability to answer the questions - no pain anywhere, no shortness of breath, not nauseous, not dizzy -currently, there are no acute events on telemetry monitoring other than sinus bradycardia in the 60s -awaiting further specialist evaluation by psychiatry and neurology and nephrology teams (2) Dilantin toxicity: -the initial Dilantin level 30.3, the dilantin was held , admitting hospitalist team had discussed the case with [facility] neurology Dr. Rico -trend the Dilantin levels -follow the neurology recommendations (3) Hyponatremia: -initial serum sodium 126 on 09/23/2020, possibly from medications (admitting team noted recent increase in oxcarbazepine dosing), Received 1 L NSS in ED, Holding oxcarbazepine and venlafaxine, Serum Osmo 263, urine Osmo 195, admitting team discussed with Dr. Celaya of holding further IV fluids for now and place patient on 1200 cc fluid restriction -serum sodium improved to 131 by night time labs on 09/23/2020 -follow the serum sodium levels and follow the nephrology recommendations (4) Seizure disorder: -Holding Dilantin as above -Continue Keppra and Topamax and check levels (5) Chronic diastolic CHF (congestive heart failure): -Appears euvolemic on presentation, Holding furosemide due to hyponatremia -telemetry monitoring other than sinus bradycardia in the 60s (6) HTN (hypertension): -BP controlled, continue carvedilol and clonidine (7) Hypothyroidism: -TSH 3.6, continue levothyroxine Sleep apnea as per previous hospital notes -assess if patient can cooperate with CPAP at bedtime. (8) DVT prophylaxis: -SCDs Admission and Anticipated Discharge Date Admission Date: September 23, 2020 Subjective Patient seen and examined while she was eating breakfast on her own power. Patient is alert and cooperative on exam but she is a poor historian and it is difficult to assess her memory. She does not recall the name of the facility that she lives in. She does not recall how many years that she lived there for. When asked what were the symptoms that led her to be admitted to the hospital starting on 09/23/2020, she responds it was because she was "leaning to the side." When hospitalist discussed with her about the current hospital plans to have neurology physicians evaluate her, she responds that "I take too many medications." This is a fairly accurate statement as she has been on multiple anti-epileptics and mood stabilizers. On review of systems, patient denies other symptoms to the best of ability to answer the questions - no pain anywhere, no shortness of breath, not nauseous, not dizzy Review of Systems Review of Systems: All systems reviewed & are unremarkable except as noted in Subjective Physical Exam Constitutional: cooperative Eyes: EOM intact bilaterally ENMT: external ear and nose normal, oropharynx normal Neck: normal visual inspection Cardiovascular: Rate/Rhythm: + bradycardic Gastrointestinal (Abdomen): normal bowel sounds, soft, nontender, no hepat osplenomegaly Musculoskeletal: Head/Neck/Chest: normocephalic and head atraumatic Neurologic: moves all extremities and awake Psychiatric: Orientation: alert and cooperative Results & Data Results & Data ([facility]) Vital Signs (Past 12 Hours) Vital Signs Temp Pulse Pulse Resp BP Pulse Ox 09/24/20 07:46 36.9 C 69 16 110/69 98 09/24/20 07:13 69 09/24/20 04:09 36.5 C 77 18 103/65 96 09/23/20 23:51 63 09/23/20 19:52 36.3 C L 20 143/83 H 97 (1) Dilantin toxicity Encounter type: initial encounter Injury intent: undetermined intent Qualified Code(s): T42.0X4A - Poisoning by hydantoin derivatives, undetermined, initial encounter
[2020-09-24 08:26] LABS: BUN Creatinine Ratio 10.5 (10-20); Calcium 8.6 mg/dl (8.5-10.1); Creatinine Clr Calc Pharmacy 84.6 ml/min; Est GFR (African American) 113.6; Potassium 3.4 mmol/L (3.5-5.1)
[2020-09-24] MEDS ORDERED: DEXTROSE 5% 500 ML IV ONE (09:21)
--- NOTE | 2020-09-24 10:15 | Consultation Report ---
DATE OF CONSULTATION: 09/24/2020 NEPHROLOGY CONSULTATION NOTE REASON FOR CONSULT: Hyponatremia with metabolic encephalopathy. HISTORY OF PRESENT ILLNESS: The patient is a 60-year-old female with history of seizure disorder, mood disorder, long-term resident of [facility] and chronic neuropsychiatric problem at baseline. She was sent over to the hospital because of mood swings, altered mental encephalopathy and yesterday during lunch, the patient was extremely lethargic and was falling forward in her chair, after which she was sent over to the hospital. There was no seizure-like activity reported. No loss of consciousness. In the Emergency Department, labs showed sodium of 126. Dilantin level of 30. She received 1 liter of normal saline overnight, no further IV fluid. Lasix was held. She was put on fluid restriction, and with that, sodium has increased faster than we would like and this morning is 137. It appears she was drinking a lot of fluid at home and even now she is constantly asking for more fluid. Her Dilantin level was high and neurology has been consulted. Unable to obtain history from the patient given her Down syndrome. PAST MEDICAL AND SURGICAL HISTORY: Includes Down syndrome, long-term resident, history of epilepsy, hypothyroidism, depression, anxiety, hypertension, hyperlipidemia, obstructive sleep apnea, GERD, asthma, history of diastolic CHF, history of seizure, cataract surgery, status post placement of vagus nerve stimulator. FAMILY HISTORY: Unknown. SOCIAL HISTORY: Long-term resident of [facility] personal half-way for disabled. No smoking, no alcohol. REVIEW OF SYSTEMS: Unable to obtain. History has been constructed from the chart and H and P. ALLERGIES: BEE VENOM, POTATO, TOMATO, LETTUCE AND POTASSIUM. PHYSICAL EXAMINATION: GENERAL: The patient with Down syndrome, unable to give me detailed account of her problem. She is obese. She is not in any respiratory distress. VITAL SIGNS: Show blood pressure 110/69, pulse rate 69, temperature 36.9, 98% on room air. HEENT: Mucous membrane moist. NECK: Supple. No jugular venous distention. CHEST: Bilateral clear to auscultation. CARDIOVASCULAR: S1, S2 regular. ABDOMEN: Soft, nontender. EXTREMITIES: Show no edema. NEUROLOGIC: She is awake and alert, could tell me where she lives, but no more than that. LABORATORY TESTS: Hemoglobin 11.3, WBC count 2.96. Sodium at the time of admission was 126. Prior to this, she had a serum sodium of 144 as of 08/06. In about 17 hours time, it has gone up to 137. Urine sodium 27, urine osmolality 195, serum osmolality 263, calcium 8.6, potassium 3.4. Chest x-ray shows cardiomegaly and mild pulmonary vascular congestion. ASSESSMENT AND PLAN: A 60-year-old female with metabolic encephalopathy and hyponatremia for which I have been consulted. Hyponatremia: This appears to be multifactorial in etiology. She was obviously drinking very excessive amount of liquid. Sodium has gone up to 137 in a very short period of time with fluid restriction. Given this, I would like to give 500 mL of D5 to slow down the rate of correction, but after that we should stop the fluid. Given that her initial sodium was more than 125 there is not a huge amount of risk even with fast correction. She is constantly asking for more water to drink and given her Down syndrome and neuropsychiatric issue, it will be very difficult to put her on actual fluid restriction. We will increase the fluid limit to 1800 mL per day and might raise further depending on the blood work. Her chest x-ray actually shows some pulmonary congestion, so we will be giving her Lasix from tomorrow. Potassium is low and has been corrected. MTDD
--- NOTE | 2020-09-24 13:16 | Psychiatric Consultation ---
Date of Consultation September 24, 2020 Impression / Recommendations Impression Dr. Amber Beaulieu was directly involved in review and discussion of the patient's case and participated in medical decision making regarding treatment recommendations. RECOMMENDATIONS: 09/24 - Psychiatric consultation requested by hospitalist service for assistance with medication management. Pt presented with acute lethargy, though had been having episodes of agitation at her facility. Psychotropic medications held on admission due to concern for lethargy - assistance requested with managing medication re-initiation. - Case reviewed with the patient's outpatient psychiatrist, Dr. Machuca, to allow for coordination of care and discussion of patient's psychiatric history. This was especially important as the patient is a limited historian. Received some medication suggestions for consideration, which included continuing to hold oxcarbazepine. This medication was more recently introduced, and does have potential to be contributing to the patient's hyponatremia. - Otherwise, outpatient psychiatric medication adjustments have not been overly significant and are not likely to be directly contributing to the patient's lethargy. With regard to the remainder of the patient's medication regimen, it does seems appropriate to continue home doses of aripiprazole 20mg and venlafaxine 150mg as these are less likely to contribute to sedation and abrupt discontinuation of venlafaxine can contribute to discontinuation syndrome which may worsen the patient's physical presentation. We suggest continuation of clonazepam as well, but at a lower dose, to reduce risk of sedation but also limit concern for withdrawal. These suggestions were reviewed with the patient in somewhat basic terms. She did deny any concerns. - Will attempt to coordinate with Dr. Machuca to schedule outpatient follow- up appointment to further review patient's medication regimen and continue outpatient medication management. We appreciate the opportunity to participate in the care of this patient. Please reach out to our service with any additional questions or updates. (1) Down syndrome: (2) Metabolic encephalopathy: (3) Hyponatremia: (4) Dilantin toxicity: Encounter type: initial encounter Injury intent: undetermined intent Qualified Code(s): T42.0X4A - Poisoning by hydantoin derivatives, undetermined, initial encounter Psych History Identifying Data 60-year-old female admitted medically on 09/23/2020 after presenting to the ED from her residence at [facility]. Pt was reported to be lethargic, and found to be hyponatremic with Dilantin toxicity. Psychotropic medications were held on admission due to sedation, and psychiatric consultation was requested to assist with medication management. Chief Complaint "I was sick." History of Present Illness Rhea Lin is a 60-year-old female admitted medically on 09/23/2020 for Dilantin toxicity and metabolic encephalopathy related to hyponatremia. Pt presented to the ED from her residence at [facility], where staff reported the patient to be lethargic. There have been reports that patient has demonstrated increased agitation and aggression with staff and other residents recently as well. Psychotropic medications were held on admission due to concern for sedation. Psychiatric consultation was requested by our hospitalist service to evaluate patient and assist with medication management. Pt is seen at [facility] [place] for outpatient psychiatric medication management, by Dr. Machuca. Collateral information was obtained from Dr. Machuca as this was felt medically necessary due to acute mental status change, patient being a limited historian, and need for coordination of care. Pt has been seen at [facility] since 01/2020 - visits conducted via telehealth due to COVID-19 pandemic. There are reports of increased agitation and disagreements with staff and other residents in the last month - seemingly unrelated to any psychiatric medication adjustments. Given the increased agitation, aripiprazole was titrated from 20mg to 30mg; however, patient did not tolerate this change and was having more frequent episodes of incontinence - so dose was reduced back to 20mg. Additionally, clonazepam was titrated but was felt to contribute to patient appearing over medicated and dose was reduced. Pt was started on oxcarbazepine, which at lower doses was reported to have been calming but patient did not tolerate further advancement of dose. It was questioned of the initiation of oxcarbazepine could have contributed in some way to patient's hyponatremia - although hospital documentation also suggests patient's water intake has been increased recently. Pt is cooperative with psychiatric assessment and is alert at time of encounter, having just finished lunch. Pt states she came to the hospital because "I was sick." Pt states "I was leaning toward that way" [pointing]. She then describes that she was leaning/falling out of her chair and staff could not wake her up. Pt admits she is feeling better, but does report episodes of emesis today. She tolerated lunch without reported incident. Pt admits to feeling somewhat confused, but answers all questions appropriately with regard to orientation. Medication suggestions were reviewed with patient in basic terms. She describes her mood as "good" and denies any safety concerns or thoughts to harm self or others. Pt denied any acute needs at this time. She reported she does feel a bit tired. Pt verbalized she was agreeable with this provider continuing to update her outpatient psychiatrist as needed. Past Psychiatric History Outpatient Services: Psychiatrist - Dr. Machuca - [facility] Allergies Allergy/AdvReac Type Severity Reaction Status Date / Time bee venom protein (honey bee) Allergy Unknown ANAPHYLAXIS Verified 09/23/20 17:27 potassium Allergy Unknown "LIQUID Verified 09/23/20 17:27 POTASSIUM" - " YOU ARE LOSING ME" tomato Allergy Unknown RASH Verified 09/23/20 17:27 Lettuce Allergy Unknown RASH Uncoded 09/23/20 17:27 Home Medications Medication Instructions Recorded Confirmed Type acetaminophen [Tylenol] 650 mg PO DAILYBL MDD 3G 02/10/19 09/23/20 History atorvastatin 20 mg PO QAM 02/10/19 09/23/20 History carvedilol 3.125 mg PO BID 02/10/19 09/23/20 History clonazepam 0.5 mg PO BID 02/10/19 09/23/20 History clonidine HCl 0.1 mg PO HS 02/10/19 09/23/20 History cyanocobalamin (vitamin B-12) 1,000 mcg IM MO 02/10/19 09/23/20 History epinephrine [EpiPen] 0.3 mg IM UD PRN 02/10/19 09/23/20 History ergocalciferol (vitamin D2) 50,000 unit PO WK 02/10/19 09/23/20 History fluticasone propionate [Flonase 1 spray INTRANASAL BID 02/10/19 09/23/20 History Allergy Relief] folic acid 1 mg PO DAILY 02/10/19 09/23/20 History furosemide [Lasix] 40 mg PO QAM 02/10/19 09/23/20 History melatonin 3 mg PO HS 02/10/19 09/23/20 History omeprazole 20 mg PO QAM 02/10/19 09/23/20 History oxybutynin chloride 5 mg PO BID 02/10/19 09/23/20 History potassium chloride 10 meq PO BID 02/10/19 09/23/20 History nystatin [Nystop] 1 applic TOPICAL BID PRN 03/20/19 09/23/20 History ondansetron HCl 4 mg PO Q8H PRN 04/11/19 09/23/20 History venlafaxine 150 mg PO DAILY 04/11/19 09/23/20 History aripiprazole 20 mg PO DAILY 09/23/20 09/23/20 History clonazepam 1 mg PO HS 09/23/20 09/23/20 History clonidine HCl 0.05 mg PO DAILY 09/23/20 09/23/20 History docusate sodium [Colace] 100 mg PO BID 09/23/20 09/23/20 History ferrous sulfate 325 mg PO BID 09/23/20 09/23/20 History levetiracetam 1,500 mg PO DAILY 09/23/20 09/23/20 History levetiracetam 2,000 mg PO HS 09/23/20 09/23/20 History levothyroxine 150 mcg PO DAILY 09/23/20 09/23/20 History lorazepam 0.25 mg PO Q8H PRN 09/23/20 09/23/20 History oxcarbazepine 600 mg PO BID 09/23/20 09/23/20 History phenytoin sodium extended 100 mg PO DAILY 09/23/20 09/23/20 History phenytoin sodium extended 200 mg PO HS 09/23/20 09/23/20 History topiramate 50 mg PO DAILY 09/23/20 09/23/20 History topiramate 100 mg PO HS 09/23/20 09/23/20 History topiramate 200 mg PO BID 09/23/20 09/23/20 History Family History Unable to gather information, as patient is a limited historian. Substance Abuse History Unable to gather information, as patient is a limited historian. Personal History Living Arrangements: Personal Care Facility ([facility]) Employment Status: Disabled Marital Status: Single Patient History Medical History Abnormal ECG Anxiety and depression Asthma Chronic diastolic CHF (congestive heart failure) Down syndrome GERD (gastroesophageal reflux disease) HLD (hyperlipidemia) HTN (hypertension) Hypothyroidism ODELL (obstructive sleep apnea) Seizure disorder Surgical History History of cataract surgery S/P placement of VNS (vagus nerve stimulation) device Family History Other Unknown family medical history Social History Smoking Status: Unknown if ever smoked Hx Alcohol Use: No Hx Substance Use: No Preferred Language: [place] Citizen Communication Ability: Effective Applications Processor Required: No Beliefs That Will Affect Care: None marital status: Single Current Living Situation: Personal Care Facility Current Living Situation Comment: [facility] current occupational status: unemployed and disabled Other Information That Helps Us Care for You: No Feels Safe at Home: Yes Safety Concerns: Feels Safe At This Time Assistive Devices: None Physical Exam Psychiatric: Orientation: alert, oriented x 3 and cooperative Limited historian, but very pleasant and cooperative with conversation Apperance: appropriately dressed, + disheveled and appeared stated age Obese-appearing female, physical features consistent with Down Syndrome diagnosis. Pt is appropriately dressed for clinical setting, wearing hospital gown. She appears disheveled, short black hair is unkempt. Poor dentition and level of hygiene is likely subpar, but not malodorous. Eye Contact: good eye contact Motor Behavior: no abnormal motor movements Speech: normal rate/rhythm/volume of speech (brief response to questions, somewhat muffled but able to communicate needs) Affect: + blunted affect (appearing subdued and fatigued, but not overtly depressed); no irritable affect (no signs of agitation or aggression) Mood: no depressed mood ("good") and no anxious mood Thought Process: goal directed thought process and + concrete thought process Thought Content: reality based without delusions; no hopelessness and no worthlessness Suicidal Thoughts: denies suicidal thoughts and denies suicidal intent Homicidal Thoughts: denies homicidal thoughts Hallucinations: no auditory hallucinations and no visual hallucinations Cognition: attention grossly intact and language grossly intact Estimated Intelligence: + below average estimated intelligence Insight: + limited insight Most likely chronic and related to intellectual disability Judgement: + limited judgement Most likely chronic and related to intellectual disability Vital Signs (Past 24 Hours): Last Vital Signs Temp 36.8 C 09/24/20 11:16 Pulse 73 09/24/20 11:16 Resp 18 09/24/20 11:16 BP 109/68 09/24/20 11:16 Pulse Ox 97 09/24/20 11:16 Review of Systems Constitutional: reports fatigue Cardiovascular: denied Respiratory: denied Gastrointestinal: states "I threw up", but no issues with lunchtime meal Neurological: admits thoughts are occasionally confused Psychiatric: denies symptoms other than stated above Total of at least 10 systems reviewed, pertinent positives as above and in HPI. Results & Data (PSY) Medications Administered Atorvastatin Calcium (Atorvastatin 20 Mg Tab) 20 mg PO QAM KRISTA Stop: 10/24/20 08:59 Last Admin: 09/24/20 07:55 Dose: 20 mg Documented by: [id number] Carvedilol (Carvedilol 3.125 Mg Tab) 3.125 mg PO BID KRISTA Stop: 10/23/20 20:59 Last Admin: 09/24/20 08:01 Dose: 3.125 mg Documented by: [id number] Admin: 09/23/20 21:16 Dose: 3.125 mg Documented by: [id number] Clonidine HCl (Clonidine Hcl 0.1 Mg Tab) 0.05 mg PO DAILY KRISTA Stop: 10/24/20 08:59 Last Admin: 09/24/20 07:57 Dose: 0.05 mg Documented by: [id number] Clonidine HCl (Clonidine Hcl 0.1 Mg Tab) 0.1 mg PO HS KRISTA Stop: 10/23/20 20:59 Last Admin: 09/23/20 21:16 Dose: 0.1 mg Documented by: [id number] Docusate Sodium (Docusate Sodium 100 Mg Cap) 100 mg PO BID KRISTA Stop: 10/23/20 20:59 Last Admin: 09/24/20 07:55 Dose: 100 mg Documented by: [id number] Admin: 09/23/20 21:17 Dose: 100 mg Documented by: [id number] Ferrous Sulfate (Ferrous Sulfate 325 Mg Tab) 325 mg PO BID KRISTA Stop: 10/23/20 20:59 Last Admin: 09/24/20 08:01 Dose: 325 mg Documented by: [id number] Admin: 09/23/20 21:16 Dose: 325 mg Documented by: [id number] Folic Acid (Folic Acid 1 Mg Tab) 1 mg PO DAILY KRISTA Stop: 10/24/20 08:59 Last Admin: 09/24/20 07:56 Dose: 1 mg Documented by: [id number] Dextrose (D5w) 500 mls @ 125 mls/hr IV .Q4H ONE Stop: 09/24/20 13:20 Last Admin: 09/24/20 09:36 Dose: 125 mls/hr Documented by: [id number] Levetiracetam (Levetiracetam 500 Mg Tab) 1,500 mg PO DAILY [facility] Stop: 10/24/20 08:59 Last Admin: 09/24/20 07:56 Dose: 1,500 mg Documented by: [id number] Levetiracetam (Levetiracetam 500 Mg Tab) 2,000 mg PO HS [facility] Stop: 10/23/20 20:59 Last Admin: 09/23/20 21:16 Dose: 2,000 mg Documented by: [id number] Levothyroxine Sodium (Levothyroxine Sodium 150 Mcg Tablet) 150 mcg PO DAILYBB [facility] Stop: 10/24/20 06:29 Last Admin: 09/24/20 06:07 Dose: 150 mcg Documented by: [id number] Oxybutynin Chloride (Oxybutynin Chloride 5 Mg Tab) 5 mg PO BID KRISTA Stop: 10/23/20 20:59 Last Admin: 09/24/20 08:00 Dose: 5 mg Documented by: [id number] Admin: 09/23/20 21:16 Dose: 5 mg Documented by: [id number] Pantoprazole Sodium (Pantoprazole 40 Mg Tab) 40 mg PO QAM [facility] Stop: 10/24/20 08:59 Last Admin: 09/24/20 07:57 Dose: 40 mg Documented by: [id number] Topiramate (Topiramate 100 Mg Tab) 300 mg PO DAILY@1900 [facility] Stop: 10/23/20 20:59 Last Admin: 09/23/20 21:17 Dose: 300 mg Documented by: [id number] Topiramate (Topiramate 50 Mg Tab) 50 mg PO DAILY@0730 [facility]; Protocol Stop: 10/24/20 07:29 Last Admin: 09/24/20 07:54 Dose: 50 mg Documented by: [id number] Topiramate (Topiramate 100 Mg Tab) 200 mg PO DAILY@0730 [facility]; Protocol Stop: 10/23/20 20:59 Last Admin: 09/24/20 07:54 Dose: 200 mg Documented by: [id number] Coding Level of Care Code 81578 [facility] Intl Hosp Care Lvl 2 Diagnoses Down syndrome Q90.9 Metabolic encephalopathy G93.41 Hyponatremia E87.1 Dilantin toxicity T42.0X4A Encounter type: initial encounter Injury intent: undetermined intent
[2020-09-24 13:27] LABS: BUN Creatinine Ratio 10.8 (10-20); Calcium 8.4 mg/dl (8.5-10.1); Creatinine Clr Calc Pharmacy 79.5 ml/min; Est GFR (African American) 111.3; Potassium 3.9 mmol/L (3.5-5.1)
[2020-09-24] MEDS: VENLAFAXINE HCL XR 150 MG CAPXR PO SCH (13:46)
--- NOTE | 2020-09-24 15:31 | Neurology Consultation ---
Date of Consultation September 24, 2020 Assessment & Plan (1) Hyponatremia: 1. corrected 2. remove chacon Present on Admission?: Yes (2) Acute alteration in mental status: 1. back to baseline Present on Admission?: Yes (3) Acute hyponatremia: Present on Admission?: Yes (4) Seizure disorder: 1. continue Keppra 1500 mg am 2000 mg pm 2. topamax 250 mg am 300 mg pm 3. taper off dilantin 200 mg tonight then 100 mg tomorrow am then stop 4. keppra and topamax level in am 5. she does not drive so no driving issues with seizure occurence seizure date, no heights, no bathing or swimming alone 6. PT for any discharge needs 7. ok to discharge from neurology perspective. Present on Admission?: Yes Supervising Physician Co-Signing Physician Notes Patient was seen and examined. Agree with Rosette Jose as noted below. Patient up walking room this afternoon around asking when she is going home. She denies complaint. She does not appear toxic or encephalopathic. She is on multiple medications including several AED. Well known to Dr. Cordero and Rosette Jose PA-C. Previous EEG showed FIRDA. No seizure or epileptiform activity. Will wean off Dilantin slowly. Restart Dilantin 200 mg tonight and then 100 mg tomorrow night then Stop. Continue Home Keppra and Topamax. History of Present Illness Reason for Consultation: Dilantin toxicity Requesting Physician: Wilson Larsen MD Attending Physician: Wilson Larsen MD History of Present Illness Rhea is a 60 year old female with PMH- chronic diastolic CHF, seizure disorder, mood disorder, HTN, hypothyroidism who presents the ED for evaluation of altered mental status. According to [facility], she was having mood swings and anger outburst last week and her psychiatrist, Dr. Jett, increase patient's oxcarbazepine from 300 mg twice daily to 600 mg twice daily but is currently being held. She was not feeling well however would not specify her symptoms but she says she had vomiting in the ED. She was having episodes of being very lethargic and falling forward in her chair. This is very unusual for her as she usually is ambulatory and very talkative. No seizure-like activity was reported. No loss of consciousness. Today she appears back to her baseline and feeling much better. She has been up walking in the [place]. denies CP, SOB, abdominal pain, headache, vision changes, new bowel or bladder issues Allergies Allergy/AdvReac Type Severity Reaction Status Date / Time bee venom protein (honey bee) Allergy Unknown ANAPHYLAXIS Verified 09/23/20 17:27 potassium Allergy Unknown "LIQUID Verified 09/23/20 17:27 POTASSIUM" - " YOU ARE LOSING ME" tomato Allergy Unknown RASH Verified 09/23/20 17:27 Lettuce Allergy Unknown RASH Uncoded 09/23/20 17:27 Home Medications Medication Instructions Recorded Confirmed Type acetaminophen [Tylenol] 650 mg PO DAILYBL MDD 3G 02/10/19 09/23/20 History atorvastatin 20 mg PO QAM 02/10/19 09/23/20 History carvedilol 3.125 mg PO BID 02/10/19 09/23/20 History clonazepam 0.5 mg PO BID 02/10/19 09/23/20 History clonidine HCl 0.1 mg PO HS 02/10/19 09/23/20 History cyanocobalamin (vitamin B-12) 1,000 mcg IM MO 02/10/19 09/23/20 History epinephrine [EpiPen] 0.3 mg IM UD PRN 02/10/19 09/23/20 History ergocalciferol (vitamin D2) 50,000 unit PO WK 02/10/19 09/23/20 History fluticasone propionate [Flonase 1 spray INTRANASAL BID 02/10/19 09/23/20 History Allergy Relief] folic acid 1 mg PO DAILY 02/10/19 09/23/20 History furosemide [Lasix] 40 mg PO QAM 02/10/19 09/23/20 History melatonin 3 mg PO HS 02/10/19 09/23/20 History omeprazole 20 mg PO QAM 02/10/19 09/23/20 History oxybutynin chloride 5 mg PO BID 02/10/19 09/23/20 History potassium chloride 10 meq PO BID 02/10/19 09/23/20 History nystatin [Nystop] 1 applic TOPICAL BID PRN 03/20/19 09/23/20 History ondansetron HCl 4 mg PO Q8H PRN 04/11/19 09/23/20 History venlafaxine 150 mg PO DAILY 04/11/19 09/23/20 History aripiprazole 20 mg PO DAILY 09/23/20 09/23/20 History clonazepam 1 mg PO HS 09/23/20 09/23/20 History clonidine HCl 0.05 mg PO DAILY 09/23/20 09/23/20 History docusate sodium [Colace] 100 mg PO BID 09/23/20 09/23/20 History ferrous sulfate 325 mg PO BID 09/23/20 09/23/20 History levetiracetam 1,500 mg PO DAILY 09/23/20 09/23/20 History levetiracetam 2,000 mg PO HS 09/23/20 09/23/20 History levothyroxine 150 mcg PO DAILY 09/23/20 09/23/20 History lorazepam 0.25 mg PO Q8H PRN 09/23/20 09/23/20 History oxcarbazepine 600 mg PO BID 09/23/20 09/23/20 History phenytoin sodium extended 100 mg PO DAILY 09/23/20 09/23/20 History phenytoin sodium extended 200 mg PO HS 09/23/20 09/23/20 History topiramate 50 mg PO DAILY 09/23/20 09/23/20 History topiramate 100 mg PO HS 09/23/20 09/23/20 History topiramate 200 mg PO BID 09/23/20 09/23/20 History Patient History Medical History Abnormal ECG Anxiety and depression Asthma Chronic diastolic CHF (congestive heart failure) Down syndrome GERD (gastroesophageal reflux disease) HLD (hyperlipidemia) HTN (hypertension) Hypothyroidism ODELL (obstructive sleep apnea) Seizure disorder Surgical History History of cataract surgery S/P placement of VNS (vagus nerve stimulation) device Family History Other Unknown family medical history Social History Smoking Status: Unknown if ever smoked Hx Alcohol Use: No Hx Substance Use: No Preferred Language: [place] Communication Ability: Effective Sketcher Required: No marital status: Single Current Living Situation: Personal Care Facility Current Living Situation Comment: [facility] current occupational status: unemployed and disabled Other Information That Helps Us Care for You: No Feels Safe at Home: Yes Safety Concerns: Feels Safe At This Time Assistive Devices: None Review of Systems Review of Systems: All systems reviewed & are unremarkable except as noted in HPI & below and All systems reviewed & are unremarkable except as noted in Subjective Physical Exam Physical Exam: Physical Exam: Constitutional: appearance nourished, healthy and obese Ears, Nose, Mouth and Throat: mucous membranes moist, no injection and skin normal, eyes normal Cardiovascular: normal S-1 and S-2 and regular rate and rhythm Respiratory: coarse breath sounds Musculoskeletal: no peripheral edema Skin: no stigmata of neurocutaneous disease noted and normal and intact Eyes: extraocular muscles intact (EOMI) and pupils equal, round and reactive to light (PERRL), dysconjugate gaze NEUROLOGIC EXAMINATION: Mental status: Alert and interactive Oriented to person Speech fluent with no evidence of aphasia Cranial Nerves smile symmetric Reflexes: Deep tendon reflexes were symmetrical and graded 2/5. Sensory: cool and light touch intact Coordination: finger to nose intact Gait/Stance: Posture normal. Gait normal: with steady with steps, base, turning, tandem gait. Motor: Negative for pronator drift of out stretched arms with eyes closed. Strength: hand skein yard drier biceps triceps bilaterally 5/5 hip flex ext Results & Data ([facility]) Vital Signs (Past 12 Hours) Vital Signs Temp Pulse Pulse Resp BP Pulse Ox 09/24/20 11:16 36.8 C 73 18 109/68 97 09/24/20 07:46 36.9 C 69 16 110/69 98 09/24/20 07:13 69 09/24/20 04:09 36.5 C 77 18 103/65 96 Laboratory Results Abnormal lab results 09/23/20 09/23/20 09/23/20 Range/Units 15:10 17:01 17:04 WBC (4.8-10.8) K/uL RBC (4.2-5.4) M/uL Hgb (12.0-16.0) g/dL Hct (37-47) % Sodium 128 L (136-145) mmol/L Potassium 3.4 L (3.5-5.1) mmol/L Chloride 97 L (98-107) mmol/L BUN (7-18) mg/dl Glucose (70-99) mg/dl Fasting Glucose (70-99) mg/dl Osmolality 263 L (280-300) mOsm/kg Calcium 8.3 L (8.5-10.1) mg/dl Urine Osmolality 195 L (500-800) mOsm/kg Phenytoin (10-20) mcg/ml 09/23/20 09/24/20 09/24/20 Range/Units 23:05 07:14 07:14 WBC 2.96 L (4.8-10.8) K/uL RBC 3.55 L (4.2-5.4) M/uL Hgb 11.3 L (12.0-16.0) g/dL Hct 33.9 L (37-47) % Sodium 131 L (136-145) mmol/L Potassium 3.3 L 3.4 L (3.5-5.1) mmol/L Chloride (98-107) mmol/L BUN 6 L (7-18) mg/dl Glucose (70-99) mg/dl Fasting Glucose 121 H (70-99) mg/dl Osmolality (280-300) mOsm/kg Calcium 8.2 L (8.5-10.1) mg/dl Urine Osmolality (500-800) mOsm/kg Phenytoin (10-20) mcg/ml 09/24/20 09/24/20 Range/Units 07:14 12:16 WBC (4.8-10.8) K/uL RBC (4.2-5.4) M/uL Hgb (12.0-16.0) g/dL Hct (37-47) % Sodium (136-145) mmol/L Potassium (3.5-5.1) mmol/L Chloride 109 H (98-107) mmol/L BUN (7-18) mg/dl Glucose 141 H (70-99) mg/dl Fasting Glucose (70-99) mg/dl Osmolality (280-300) mOsm/kg Calcium 8.4 L (8.5-10.1) mg/dl Urine Osmolality (500-800) mOsm/kg Phenytoin 23.9 H (10-20) mcg/ml
--- NOTE | 2020-09-24 16:41 | Electrocardiogram Report ---
Test Reason : Blood Pressure : / mmHG Vent. Rate : 069 BPM Atrial Rate : 069 BPM P-R Int : 190 ms QRS Dur : 086 ms QT Int : 410 ms P-R-T Axes : 037 008 258 degrees QTc Int : 439 ms Normal sinus rhythm Low voltage QRS Poor R wave progression, consider anterior OH vs. lead placement vs. LVH Abnormal ECG When compared with ECG of 10-APR-2019 19:29, T wave inversion more evident in Lateral leads QT has shortened Confirmed by Cy Padgett ([id number]) on 09/24/2020 4:41:42 PM Referred By: Jacque Sheets [place] Confirmed By:Cy Padgett
[2020-09-24] MEDS ORDERED: PHENYTOIN 100 MG/4 ML UDP PO ONE (17:12)
[2020-09-24] MEDS ORDERED: PHENYTOIN SUSP 125 MG/5 ML PO ONE (18:30)
[2020-09-24] MEDS: clonazePAM 0.5 MG TAB PO SCH (20:55)
[2020-09-25] MEDS: LEVOTHYROXINE SODIUM 150 MCG TABLET PO SCH (06:30)
[2020-09-25] MEDS: TOPIRAMATE 50 MG TAB PO SCH (06:30)
[2020-09-25] MEDS: TOPIRAMATE 100 MG TAB PO SCH (06:30)
[2020-09-25 08:17] LABS: Mean Corpuscular Hemoglobin 31.8 pg (25-34); Mean Corpuscular Hgb Conc 32.4 g/dL (32-36); Mean Corpuscular Volume 98.3 fL (80-100); Mean Platelet Volume 8.2 fL (7.4-10.4); Platelet Count 122 K/uL (130-400); RDW Coefficient of Variation 12.9 % (11.5-14.5); RDW Standard Deviation 46.2 fL (36.4-46.3); Red Blood Count 3.46 M/uL (4.2-5.4); White Blood Count 2.24 K/uL (4.8-10.8)
[2020-09-25] MEDS: cloNIDine HCL 0.1 MG TAB PO SCH (08:20)
[2020-09-25] MEDS: PANTOprazole 40 MG TAB PO SCH (08:21)
[2020-09-25] MEDS: OXYBUTYNIN CHLORIDE 5 MG TAB PO SCH (08:21)
[2020-09-25] MEDS: DOCUSATE SODIUM 100 MG CAP PO SCH (08:21)
[2020-09-25] MEDS: ATORVASTATIN 20 MG TAB PO SCH (08:21)
[2020-09-25] MEDS: FERROUS SULFATE 325 MG TAB PO SCH (08:21)
[2020-09-25] MEDS: FOLIC ACID 1 MG TAB PO SCH (08:21)
[2020-09-25] MEDS: levETIRAcetam 500 MG TAB PO SCH (08:21)
[2020-09-25] MEDS: VENLAFAXINE HCL XR 150 MG CAPXR PO SCH (08:21)
[2020-09-25] MEDS: carvediloL 3.125 MG TAB PO SCH (08:21)
[2020-09-25] MEDS: clonazePAM 0.5 MG TAB PO SCH (08:27)
[2020-09-25 08:39] LABS: Albumin Level 3.3 gm/dl (3.4-5.0); Calcium 8.5 mg/dl (8.5-10.1); Creatinine Clr Calc Pharmacy 71.9 ml/min; Est GFR (African American) 105.5; Potassium 4.1 mmol/L (3.5-5.1)
[2020-09-25 08:41] LABS: Eosinophils % (auto) 4.5 %; Lymphocytes # (auto) 0.91 K/uL (1.2-3.4); Lymphocytes % (auto) 40.6 %; Monocytes # (auto) 0.32 K/uL (0.11-0.59); Monocytes % (auto) 14.3 %; Neutrophils # (auto) 0.91 K/uL (1.4-6.5); Neutrophils % (auto) 40.6 %
[2020-09-25 08:42] LABS: Albumin Globulin Ratio 1.1 (0.9-2); Bilirubin,Total 0.1 mg/dl (0.2-1); Total Protein 6.3 gm/dl (6.4-8.2)
[2020-09-25] MEDS ORDERED: ARIPiprazole 10 MG TAB PO SCH (09:00)
[2020-09-25] MEDS ORDERED: PHENYTOIN 100 MG/4 ML UDP PO ONE (09:00)
[2020-09-25] MEDS ORDERED: FUROSEMIDE 40 MG TAB PO SCH (11:00)
--- NOTE | 2020-09-25 12:30 | Hospitalist Progress Note ---
Date of Service September 25, 2020 Assessment & Plan (1) Acute alteration in mental status: Possible related to metabolic vs toxic encephalopathy Due to polypharmacy versus medication side effects Down Syndrome History of Seizure Disorder, History of Anxiety and Depression -patient from [facility] [place], has Down syndrome as documented in previous hospital notes -as per ED notes on 09/23/2020 "The patient is a 60-year-old female who presented to the emergency department for an evaluation of difficulty with waking up. The patient does have a history of seizures but no reported seizures were noted by the personal assisted staff. The patient lives at a personal assisted. Apparently this is been ongoing at least through today. There is been no falls. The patient herself does not complain of any headaches nausea or vomiting. There is no reported fever difficulty breathing or cough. The patient does have a history of seizures and there may be some history of a new medication that was added to her medication regimen but we are unsure which medication this is. Apparently the patient has been taking all of her other medications as prescribed" -Hospitalist team admitted the patient from the ED for further evaluation of lethargy and altered mental status. The concern of admitting hospitalist team that the causes of the changes in mental status may have been multifactorial to Dilantin toxicity and hyponatremia. Hold all sedating medications for now as isaac torres is on multiple psychiatric medications for history of anxiety and depression (abilify, clonazepam, oxcarbazepine, venlafaxine) 09/24/2020 AM hospitalist exam: -Patient seen and examined while she was eating breakfast on her own power. Patient is alert and cooperative on exam but she is a poor historian and it is difficult to assess her memory. She does not recall the name of the [facility] at she lives in. She does not recall how many years that she lived there for. When asked what were the symptoms that led her to be admitted to the hospital starting on 09/23/2020, she responds it was because she was "leaning to the side." When hospitalist discussed with her about the current hospital plans to have neurology physicians evaluate her, she responds that "I take too many medications." This is a fairly accurate statement as she has been on multiple anti-epileptics and mood stabilizers. On review of systems, patient denies other symptoms to the best of ability to answer the questions - no pain anywhere, no shortness of breath, not nauseous, not dizzy 09/25 Mental status back to normal No abnormal behavior display Case discussed with psych that recommended to decrease the Klonopin to 0.5 mg BID and ok to continue prn ativan for agitaion Will discontinue oxcarbazepine Clinically stable (2) Dilantin toxicity: Dilantin level 30.3, the dilantin was held , admitting hospitalist team had discussed the case with [facility] neurology Dr. Rico Neuro on board that recommended to discontinue dilantin Continue Keppra and Topamax Follow up Keppra and Topamax level (3) Hyponatremia: -initial serum sodium 126 on 09/23/2020, possibly from medications (admitting team noted recent increase in oxcarbazepine dosing), Received 1 L NSS in ED, Holding oxcarbazepine and venlafaxine, Serum Osmo 263, urine Osmo 195, admitting team discussed with Dr. Celaya of holding further IV fluids for now and place patient on 1200 cc fluid restriction Na 143 today Nephrology on board Stable (4) Seizure disorder: Dilantin discontinued Continue Keppra and Topamax and follow the levels Continue seizure and fall precaution (5) Chronic diastolic CHF (congestive heart failure): Appears euvolemic on presentation, and lasix was on hold due furosemide due to hyponatremia Lasix resumed (6) HTN (hypertension): BP controlled, continue carvedilol and clonidine (7) Hypothyroidism: TSH level 3.6 Continue levothyroxine (8) DVT prophylaxis: -SCDs Admission and Anticipated Discharge Date Admission Date: September 23, 2020 Subjective Pt was seen and examined Lying in bed with no distress Pt said that she feels fine She would like to go home today Denies any chest pain, palpitation, dizziness and SOB Physical Exam Physical Exam: General- No acute distress Head- atraumatic Eyes- PERRL, EOMI, ENT- oropharynx clear Neck- supple, no JVD Lungs- clear to auscultation Heart- no murmur Abdomen- normal bowel sounds, soft, nontender Extremities- no calf tenderness Neuro- alert, oriented x 3; PERRL, EOMI; no facial palsy; no dysarthria Skin- warm & dry Results & Data Results & Data ([facility]) Vital Signs (Past 12 Hours) Vital Signs Temp Pulse Resp BP Pulse Ox 09/25/20 07:03 36.4 C L 63 16 102/63 95 09/25/20 04:04 36.4 C L 67 18 106/68 95 (1) Dilantin toxicity Encounter type: initial encounter Injury intent: undetermined intent Qualified Code(s): T42.0X4A - Poisoning by hydantoin derivatives, undetermined, initial encounter
--- NOTE | 2020-09-25 12:51 | Progress Notes ---
DATE: 09/25/2020 SUBJECTIVE: Overnight, no new issues. She has corrected serum sodium very fast with just fluid restriction. Unable to get any history from the patient in meaningful way. OBJECTIVE: VITAL SIGNS: Blood pressure 102/63, pulse rate 63, temperature 36.4, 95% on room air. HEENT: Mucous membranes moist. NECK: Supple. No jugular venous distention. CHEST: Bilateral clear to auscultation. CARDIOVASCULAR: S1 and S2, regular. ABDOMEN: Soft, nontender. EXTREMITIES: Shows trace to 1+ edema. LABORATORY TESTS: Shows hemoglobin 11. Serum sodium this morning is 143, potassium is 4.1. BUN 5, creatinine 0.7. ASSESSMENT AND PLAN: A 60-year-old female with Down syndrome and a [facility], presented with metabolic encephalopathy and moderate hyponatremia for which I have been consulted. Hyponatremia. This is secondary to polydipsia. Serum sodium has gone up to normal very fast with very mild fluid restriction. At this time, she is on a fluid restriction of 2000 mL per day which is not really a fluid restriction. It is hard to obtain how much she was drinking at home, but even now she is constantly asking for more water. Given her Down syndrome status it will be very difficult to manage her fluid restriction. She does not necessarily need a fluid restriction, but just needs to make sure she is not drinking extremely high amount. MTDD
--- NOTE | 2020-09-27 23:45 | Discharge Summary ---
Date of Service September 25, 2020 Admission HPI Per Admitting Provider 60-year-old female with PMH chronic diastolic CHF, seizure disorder, mood disorder, HTN, hypothyroidism, and other problems listed below who presents the ED for evaluation of altered mental status. History is limited from the patient. History is obtained from the staff at [facility] [place]. Patient was having mood swings and anger outburst last week. Patient psychiatrist, Dr. Jett, increase patient's oxcarbazepine from 300 mg twice daily to 600 mg twice daily. Yesterday, the staff reports that patient said she was not feeling well however would not specify her symptoms. Today at lunch, patient was noted to be very lethargic and falling forward in her chair. This is very unusual for her as she usually is ambulatory and very talkative. No seizure-like activity was reported. No loss of consciousness. Patient was referred to the ED for further evaluation. In the ED, labs show Na+ 126, Dilantin level 30.3. Patient received 1 L NSS. Admission Exam Per Admitting Provider Constitutional: WD/WN, vitals as above Eyes: PERRL, conjunctivae normal, anicteric sclerae EOM intact bilaterally Mild upward deviation of left eye noted ENMT: external ear and nose normal, oropharynx normal Respiratory: normal respiratory effort, lungs clear to auscultation Cardiovascular: regular rate and regular rhythm Vessels: normal peripheral pulses Extremities: no edema Gastrointestinal: normal bowel sounds, soft, nontender, no hepatosplenomegaly Musculoskeletal: no cyanosis or clubbing, extremities motor strength 5/5 Skin: no rashes, warm and dry Neurologic: PERRL, EOMI, accommodation nl, no face palsy, no dysarthria Psychiatric: Orientation: alert (Slow to respond at times), oriented to person and oriented to place; + not oriented to time Affect: euthymic affect Insight: + limited insight Principal Diagnosis Acute alteration in mental status ( Possible related to metabolic vs toxic encephalopathy) Down Syndrome History of Seizure Disorder History of Anxiety and Depression Dilantin toxicity: Hyponatremia: Seizure disorder: Chronic diastolic CHF (congestive heart failure): HTN (hypertension): Hypothyroidism: Discharge Exam General- No acute distress Head- atraumatic Eyes- PERRL, EOMI, ENT- oropharynx clear Neck- supple, no JVD Lungs- clear to auscultation Heart- no murmur Abdomen- normal bowel sounds, soft, nontender Extremities- no calf tenderness Neuro- alert, PERRL, EOMI; no facial palsy Skin- warm & dry Discharge Data Allergies Allergy/AdvReac Type Severity Reaction Status Date / Time bee venom protein (honey bee) Allergy Unknown ANAPHYLAXIS Verified 09/23/20 17:27 potassium Allergy Unknown "LIQUID Verified 09/23/20 17:27 POTASSIUM" - " YOU ARE LOSING ME" tomato Allergy Unknown RASH Verified 09/23/20 17:27 Lettuce Allergy Unknown RASH Uncoded 09/23/20 17:27 Consultations 09/23/20 15:48 ED Decision to Admit Stat 09/23/20 19:51 Consult Case Management - Discharge Planning Routine Consult Nephrology Routine Consult Neurology Routine Consult Psychiatry Routine Ordered Studies 09/23/20 14:00 CT head/brain wo con Stat CT SCAN OF THE BRAIN WITHOUT IV CONTRAST CLINICAL HISTORY: Generalized weakness. Change in mental status. COMPARISON STUDY: CT of the brain dated 03/20/2019. TECHNIQUE: Unenhanced axial CT scan of the brain is performed from the vertex to the skull base. A dose lowering technique was utilized adhering to the pr inciples of MARY. CT DOSE: 638.56 mGycm FINDINGS: Brain parenchyma: The brain parenchyma is normal in appearance. There is no hemorrhage, mass effect, or evidence of acute territorial ischemia by CT criteria. Woodall-white matter differentiation is preserved. No extra-axial fluid collection is seen. Ventricles, sulci, cisterns: Normal in configuration. Intracranial vasculature: The visualized intracranial vasculature at the skull base is normal in appearance. Calvarium: Unremarkable. Sinuses and mastoids: The visualized paranasal sinuses are clear. The mastoid air cells are well pneumatized. Orbits: The bony orbits are grossly intact. There is evidence of previous left ocular lens surgery. IMPRESSION: There is no hemorrhage, mass effect, or evidence of acute territorial ischemia by CT criteria. ACT 112: Negative or not required by law. Electronically signed by: Alberto Askew M.D. 09/23/2020 3:28 PM Dictated: 09/23/20 1525Transcribed: 09/23/20 1525 R chest 1V portable HISTORY: weakness COMPARISON: Chest 04/10/2019. FINDINGS: There are low lung volumes. No pneumothorax. Mild elevation of the right hemidiaphragm, unchanged. The heart is enlarged. No new focal lung consolidations to suggest pneumonia. There is mild central pulmonary vascular congestion without overt edema. No pleural effusions. IMPRESSION: Cardiomegaly and mild pulmonary vascular congestion which has progressed. ACT 112: Negative or not required by law. Electronically signed by: Jose J Early M.D. 09/23/2020 2:38 PM Hospital Course (1) Acute alteration in mental status: Possible related to metabolic vs toxic encephalopathy Due to polypharmacy versus medication side effects Down Syndrome History of Seizure Disorder, History of Anxiety and Depression -patient from [facility] [place], has Down syndrome as documented in previous hospital notes -as per ED notes on 09/23/2020 "The patient is a 60-year-old female who presented to the emergency department for an evaluation of difficulty with waking up. The patient does have a history of seizures but no reported seizures were noted by the personal [facility] staff. The patient lives at a personal [facility]. Apparently this is been ongoing at least through today. There is been no falls. The patient herself does not complain of any headaches nausea or vomiting. There is no reported fever difficulty breathing or cough. The patient does have a history of seizures and there may be some history of a new medication that was added to her medication regimen but we are unsure which medication this is. Apparently the patient has been taking all of her other medications as prescribed" -Hospitalist team admitted the patient from the ED for further evaluation of lethargy and altered mental status. The concern of admitting hospitalist team that the causes of the changes in mental status may have been multifactorial to Dilantin toxicity and hyponatremia. Hold all sedating medications for now as patient is on multiple psychiatric medications for history of anxiety and depression (abilify, clonazepam, oxcarbazepine, venlafaxine) 09/24/2020 AM hospitalist exam: -Patient seen and examined while she was eating breakfast on her own power. Patient is alert and cooperative on exam but she is a poor historian and it is difficult to assess her memory. She does not recall the name of the facility that she lives in. She does not recall how many years that she lived there for. When asked what were the symptoms that led her to be admitted to the hospital starting on 09/23/2020, she responds it was because she was "leaning to the side." When hospitalist discussed with her about the current hospital plans to have neurology physicians evaluate her, she responds that "I take too many medications." This is a fairly accurate statement as she has been on multiple anti-epileptics and mood stabilizers. On review of systems, patient denies other symptoms to the best of ability to answer the questions - no pain anywhere, no shortness of breath, not nauseous, not dizzy 09/25 Mental status back to normal No abnormal behavior display Case discussed with psych that recommended to decrease the Klonopin to 0.5 mg BID and ok to continue prn ativan for agitaion Will discontinue oxcarbazepine Clinically stable (2) Dilantin toxicity: Dilantin level 30.3, the dilantin was held , admitting hospitalist team had discussed the case with [facility] neurology Dr. Rico Neuro on board that recommended to discontinue dilantin Continue Keppra and Topamax Follow up Keppra and Topamax level (3) Hyponatremia: -initial serum sodium 126 on 09/23/2020, possibly from medications (admitting team noted recent increase in oxcarbazepine dosing), Received 1 L NSS in ED, Holding oxcarbazepine and venlafaxine, Serum Osmo 263, urine Osmo 195, admitting team discussed with Dr. Celaya of holding further IV fluids for now and place patient on 1200 cc fluid restriction Na 143 today Nephrology on board Stable (4) Seizure disorder: Dilantin discontinued Continue Keppra and Topamax and follow the levels Continue seizure and fall precaution (5) Chronic diastolic CHF (congestive heart failure): Appears euvolemic on presentation, and lasix was on hold due furosemide due to hyponatremia Lasix resumed (6) HTN (hypertension): BP controlled, continue carvedilol and clonidine (7) Hypothyroidism: TSH level 3.6 Continue levothyroxine (8) DVT prophylaxis: -SCDs Total Time Total Time Spent Total Time Spent (In Minutes): 35 minutes Total Time Includes: Examination of the Patient, Discharge Planning, Medication Reconciliation, Communication With Other Providers and Other Discharge Plan Discharge Items Patient Disposition: [facility] Reason For Visit: DILANTIN TOXICITY, HYPONATREMIA Discharge Diagnosis: Acute alteration in mental status ( Possible related to metabolic vs toxic encephalopathy) Down Syndrome History of Seizure Disorder History of Anxiety and Depression Dilantin toxicity: Hyponatremia: Seizure disorder: Chronic diastolic CHF (congestive heart failure): HTN (hypertension): Hypothyroidism: Condition on Discharge: Good Activity: Resume your previous activity Non-emergency contact: Primary Care Provider Call non-emergency contact if: you have any medication questions Follow-up/Referrals: Jacque Green [Primary Care Provider] - Diet: Carb Consistent or DM2 Addtl Attending Provider Instructions: Follow up with your primary care provider at [facility] Follow up with your psychiatry Follow up with neurology if develops any seizure activity Dilantin discontinued Will check Keppra and Topamax level Fall precaution seizure precaution Avoid any heights, no bathing or swimming alone Pending Studies at Discharge: Yes Stand-Alone Forms: Appboy, Smoking Cessation Skilled Items Patient informed of condition?: Yes DNR: No Discharge Level of Care: Other Communicable Disease: No Discharge Prognosis: Stable Lines: None Urinary Catheter: No Medications and DC Order Prescriptions: Continued nystatin [Nystop] 100,000 unit/gram Powder 1 applic TOPICAL BID PRN (Reason: Skin Irritation) RF: 0 venlafaxine 150 mg Tablet Extended Release 24hr 150 mg PO DAILY RF: 0 ondansetron HCl 4 mg Tablet 4 mg PO Q8H PRN (Reason: Nausea And Vomiting) RF: 0 furosemide [Lasix] 40 mg Tablet 40 mg PO QAM RF: 0 clonidine HCl 0.1 mg Tablet 0.1 mg PO HS RF: 0 acetaminophen [Tylenol] 325 mg Tablet 650 mg PO DAILYBL MDD 3G RF: 0 atorvastatin 20 mg Tablet 20 mg PO QAM RF: 0 clonazepam 0.5 mg Tablet 0.5 mg PO BID RF: 0 potassium chloride 10 mEq Tablet Extended Release 10 meq PO BID RF: 0 melatonin 3 mg Tablet 3 mg PO HS RF: 0 carvedilol 3.125 mg Tablet 3.125 mg PO BID RF: 0 cyanocobalamin (vitamin B-12) 1,000 mcg/mL Solution 1,000 mcg IM MO RF: 0 omeprazole 20 mg Capsule,Delayed Release(Dr/Ec) 20 mg PO QAM RF: 0 folic acid 1 mg Tablet 1 mg PO DAILY RF: 0 ergocalciferol (vitamin D2) 50,000 unit Capsule 50,000 unit PO WK RF: 0 epinephrine [EpiPen] 0.3 mg/0.3 mL Auto-Injector 0.3 mg IM UD PRN (Reason: Allergic Reaction) RF: 0 oxybutynin chloride 5 mg Tablet 5 mg PO BID RF: 0 fluticasone propionate [Flonase Allergy Relief] 50 mcg/actuation [place],Suspension 1 spray INTRANASAL BID RF: 0 ferrous sulfate 325 mg (65 mg iron) Tablet 325 mg PO BID RF: 0 levothyroxine 150 mcg tablet 150 mcg PO DAILY RF: 0 topiramate 200 mg tablet 200 mg PO BID RF: 0 levetiracetam 750 mg tablet 1,500 mg PO DAILY RF: 0 topiramate 100 mg tablet 100 mg PO HS RF: 0 aripiprazole 20 mg tablet 20 mg PO DAILY RF: 0 topiramate 50 mg tablet 50 mg PO DAILY RF: 0 levetiracetam 1,000 mg tablet 2,000 mg PO HS RF: 0 clonidine HCl 0.1 mg tablet 0.05 mg PO DAILY RF: 0 lorazepam 0.5 mg Tablet 0.25 mg PO Q8H PRN (Reason: Anxiety) RF: 0 docusate sodium [Colace] 100 mg Capsule 100 mg PO BID RF: 0 Discontinued clonazepam 1 mg tablet 1 mg PO HS RF: 0 phenytoin sodium extended 100 mg capsule 200 mg PO HS RF: 0 phenytoin sodium extended 100 mg capsule 100 mg PO DAILY RF: 0 oxcarbazepine 600 mg tablet 600 mg PO BID RF: 0 Discharge Orders: Discharge Order (Routine); Ordered 09/25/20 Ordered By: Barbara Baer Admission Data Admit Date/Time: 09/23/20 16:31 Attending Provider: Barbara Baer Admit Provider: Brisa Colmenares Primary Care Provider: Jacque Green Other Providers: Brisa Colmenares ; Kodak Celaya ; Randall Rico ; Amber Beaulieu Other Interventions: Discharge Summary Assessment (RN) Last Done: 09/25/20 12:54
[2020-09-29 01:51] LABS: Levetiracetam Keppra 22.5 mcg/mL (12.0-46.0); Topiramate 5.9 mcg/mL (see note)
== END 2020-09-25 13:22 | disposition home or self-care (01) | DRG 91 ==
LOC: ED 13:49 → 2S 16:31 → SUATTDRO 16:31 → 2S 18:59